=== PATIENT | female | born 1950 | race Caucasian/White ===

== ENCOUNTER 2016-09-05 10:18 | Day surgery (SDC) | payer BC ==
--- NOTE | 2016-08-15 09:36 | HP ---
HISTORY AND PHYSICAL: DATE OF ADMISSION: She is coming into [facility] [place] [facility] on 09/04/16 for left knee a rthroscopic surgery. CHIEF COMPLAINT: Left knee anteromedial pain and catching. HISTORY OF PRESENT ILLNESS: She has had problems in this region for the last couple of months and h as been disabling. She has had knee swelling, extreme knee pain when she catches her left toes and an MRI scan has been done. Because of the distress, we have recommended a knee arthroscopic surgery . Today, she noted that the knee was symptomatic enough and she wished that her left leg was not th ere from her mid thigh downwards. PAST MEDICAL HISTORY: No history of heart attack. She has had a history of chest pain; it was work ed up. She had a normal stress test in about 2013 and she has not had chest pain since. PAST SURGICAL HISTORY: Appendectomy, cholecystectomy, removal of ovarian cyst. She had rectal repai r at [facility] with a long anesthetic just in the last couple of years and she had surgical care for her thyroid at [facility], [place] in July 2009 where she had some difficulty coming out o f the anesthetic and she recalls that they called for the tracheotomy cart, but did not have to do a tracheotomy. She wanted to know if she has some surgical care. On August 31, she wanted the anesth esiologist to be aware of this awakening from anesthesia of July 2009. In the past she had thyroid c ancer, currently no evidence of disease. ALLERGIES: MACRODANTIN and she knows that she wants to avoid morphine. SOCIAL HISTORY: No smoking. She is a social drinker. PHYSICAL EXAMINATION GENERAL: Well-nourished, well-developed, not acutely distressed. VITAL SIGNS: Temperature is 97.4, blood pressure 144/90, pulse is 77, height 5 feet 4 inches, weigh t 186. HEENT: Head: NC/AT. Cranial nerves are grossly intact. LUNGS: Clear bilaterally. HEART: Regular S1, S2 normal. No murmurs or gallops. ABDOMEN: Round, soft, and nontender. EXTREMITIES: The left knee shows a limp and effusion. She is very tender medially and medial carmen la, nontender anteriorly, laterally, and posterolaterally. Some tenderness posteromedially. No mas ses appreciated posterior. The foot pulse in intact and thigh and calf were soft. IMPRESSION: Left knee medial meniscal tear. RECOMMENDATIONS: We have recommended left knee arthroscopic surgery. We have reviewed the goals, r isk and complications of the surgical care today and her questions were answered. [id number]/[facility] #: [id number]
[~2016-09-05 10:18] MED LIST: Famotidine IV* 10 MG/ML 2 ML (20 mg) IV ONE; Ondansetron INJ* 2 MG/ML VIAL IV ONE
[2016-09-05] MEDS ORDERED: Buffered Lidocaine 0.9% SYRIN* 5 ML/SYR SYRINGE ONE (10:35)
[2016-09-05] MEDS ORDERED: Ondansetron INJ* 2 MG/ML VIAL ONE ×2 (10:35→13:17)
[2016-09-05] MEDS ORDERED: Famotidine IV* 10 MG/ML 2 ML (20 mg) ONE (10:35)
[2016-09-05] MEDS ORDERED: ceFAZolin 2 GM PREMIX(*) 2 GM/50 ML BAG IVPB ONE (10:35)
[2016-09-05] MEDS ORDERED: Lidocaine 1% MPF wEPI 200,000* 30 ML SDV ONE (12:52)
[2016-09-05] MEDS ORDERED: Bupivacaine 0.5% W/EPI SDV* 30 ML VIAL ONE ×2 (12:52→13:15)
[2016-09-05] MEDS ORDERED: Propofol* 10 MG/ML 20 ML BTL IV PUSH ONE (13:17)
[2016-09-05] MEDS ORDERED: Ketorolac INJ* 30 MG/ML 1 ML VIAL ONE (13:17)
[2016-09-05] MEDS ORDERED: KETAMINE HCL* 50 MG/ML 10 ML VIAL ONE (13:17)
[2016-09-05] MEDS ORDERED: Midazolam* 1 MG/ML 5 ML VIAL (5 MG) ONE (13:17)
[2016-09-05] MEDS ORDERED: fentaNYL* 50 MCG/ML 2 ML VIAL (100 MCG VIAL) ONE ×3 (13:17→15:09)
[2016-09-05] MEDS ORDERED: Lidocaine 2% PF * 5 ML VIAL ONE (13:17)
[2016-09-05] MEDS ORDERED: Dexamethasone IV* 4 MG/ML 1 ML (4 MG) ONE (13:17)
[2016-09-05] MEDS ORDERED: fentaNYL* 50 MCG/ML 2 ML VIAL (100 MCG VIAL) IV PRN (15:06)
[2016-09-05] MEDS ORDERED: Ondansetron INJ* 2 MG/ML VIAL IV PRN (15:06)
[2016-09-05] MEDS ORDERED: oxyCODONE/Acetamin 5/325 MG* TAB PO PRN (15:06)
[2016-09-05] MEDS ORDERED: oxyCODONE/Acetamin 5/325 MG* TAB ONE (15:41)
[2016-09-05 16:42] VITALS: BP 131/79
--- NOTE | 2016-09-06 04:08 | OP ---
CC: Dr. Leslie Khalil, [facility] office * DATE OF OPERATION: 09/05/16 - [facility] DATE OF : 50 SURGICAL CARE: Left knee arthroscopy surgery. SURGEON: Dylon Nunes MD ASSISTANTS: MIKI Goddard, director of first impressions; and Carmen, the physician's print shop assistant student. ANESTHESIOLOGIST: Dr. Juvenal Araujo. ANESTHESIA: General, LMA. PRE-OP DIAGNOSIS: Left knee medial meniscal tear. POST-OP DIAGNOSES: Left knee medial meniscal tear and lateral meniscal tear. OPERATIVE PROCEDURE: Left knee partial medial and lateral meniscectomy. OPERATIVE INDICATION: Left knee anteromedial and medial pain, popping, catching , and intermittent marked distress with twisting and pivoting. MRI scan showing medial meniscal tear and somewhere at the medial patella. COMPLICATIONS: There were no complications. DRAINS: There were no drains. TOURNIQUET: Tourniquet control was utilized on the left leg. CONDITION: Condition was stable to the recovery room. DESCRIPTION OF PROCEDURE: The patient was brought to the operating room and placed on the operating room table in a supine position. Following the administration of general anesthetic, the left proximal thigh was wrapped with a tourniquet. The left leg was prepped from the tourniquet to the foot and then draped free and carefully sealed off in the usual fashion for arthroscopic surgery of the knee. The leg, ankle, and foot portion were sealed off with an impermeable drape with a Vi-Drape wrapped around the calf at the top of that. After prepping, draping, and sealing off, we did our [place] Protocol time- out confirming Krupa Pendleton and a plan for left knee arthroscopic surgery. We all agreed and we proceeded. The leg was exsanguinated, the tourniquet elevated to 275, the knee was set up for arthroscopy with the arthroscope lateral to the patellar tendon, probe and operating instruments medial to the patellar tendon, and an inflow catheter superomedial to the patella. The survey of the joint showed that the patellofemoral joint was in satisfactory condition. There was a little synovitis medial to the patella. The medial and lateral gutters were clear. The ACL was satisfactory, PCL was satisfactory. The lateral femoral condyle, lateral meniscus, lateral tibial plateau had some yellowing of the cartilage and there was some tearing of the inner portions of the lateral meniscus and the lateral meniscus was shaved smooth. The ligamentum mucosum was excised. The medial femoral condyle was in good condition. The medial tibial plateau had wear and cartilage loss underneath the posterior horn of the medial meniscus , which was torn out with flaps in displaceable portions. The medial meniscus also had a displaced flap in the posterior notch right along the PCL. Once the pathology was evident, then I proceeded with shaving the inner and lateral meniscus. The medial meniscus was shaved mid and posteriorly and basket was utilized on the posterior medial meniscus torn part where there were flaps. The shaver was sent through the intercondylar notch from the lateral portal as well and then the anterior transition of resected versus nonresected medial meniscus was smoothed from the anterolateral portal. Care was taken not to injure the adjacent condyle during the surgical care, and as stated, the medial tibial plateau had some thinning and loss of cartilage posteriorly underneath the medial meniscus. Once the surgical care was complete, the tourniquet was deflated. The knee was irrigated with another 5 L of saline irrigation solution , then emptied, then instilled with Marcaine 0.5% with epinephrine 28 to 30 mL and the skin portals were closed with interrupted 3-0 Surgipro and the dressing applied after washing and drying with Betadine-soaked release, sterile gauze, sterile Webril, cryotherapy cuff, ABD pads, and a 6-inch Omar bandage loosely applied. The patient was returned to the recovery room in stable and satisfactory condition having tolerated the procedure very well. [id number]/[facility] #: [id number] LIZZY
== END 2016-09-05 16:40 | disposition home or self-care (01) ==
LOC: OR 10:18
PROVIDERS: ATTEND Orthopaedic Surgery
DX: M23.332 Other meniscus derangements, other medial meniscus, left knee (principal); M23.362 Other meniscus derangements, other lateral meniscus, left knee; Z88.1 Allergy status to other antibiotic agents
CPT/HCPCS: A9270-GY; J0690; J1100; J1885; J2001; J2250; J2405; J2704; J3010

== ENCOUNTER 2017-10-18 11:25 | Observation (INO) | payer BC, MEDICARE ==
[2017-10-18 13:00] LABS: ABS Basophils 0 10^3/ul (0-0.2); ABS Eosinophils 0.1 10^3/ul (0-0.6); ABS Lymphocytes 1.4 10^3/ul (1.0-4.8); ABS Monocytes 0.3 10^3/ul (0-0.8); ABS Neutrophils 2.8 10^3/ul (1.5-7.7); ABS Nucleated RBC 0 10^3/ul; Eosinophil % 1.3 % (0-6); Hematocrit 36 % (35-47); Hemoglobin 12.8 g/dl (12.0-16.0); Lymphocyte % 30.2 % (25-47); Mean Corpuscular HGB Conc 35 g/dl (31-36); Mean Corpuscular Hemoglobin 30 pg (27-31); Mean Corpuscular Volume 85 fL (80-97); Mean Platelet Volume 8.4 um3 (7.4-10.4); Nucleated Red Blood Cells % 0; Platelet Count 203 10^3/ul (150-450); Red Blood Count 4.25 10^6/ul (4.00-5.40); Red Cell Distribution Width 14 % (10.5-15); White Blood Count 4.7 10^3/ul (3.5-10.8)
[2017-10-18 13:24] LABS: EGFR Non-African American 73.7 (>60)
--- NOTE | 2017-10-18 13:35 | RAD ---
HISTORY: cp, chest pain, shortness of breath, bradycardia COMPARISONS: December 28, 2009 VIEWS: 1: frontal portable view of the chest at 1:20 PM FINDINGS: LINES AND TUBES: None. CARDIOMEDIASTINAL SILHOUETTE: The cardiomediastinal silhouette is normal for portable technique. PLEURA: The costophrenic angles are sharp. No pleural abnormalities are noted. LUNG PARENCHYMA: The lungs are clear. ABDOMEN: The upper abdomen is clear. There is no subphrenic gas. BONES AND SOFT TISSUES: No bone or soft tissue abnormalities are noted. IMPRESSION: NO ACTIVE CARDIOPULMONARY DISEASE.
[2017-10-18] MEDS ORDERED: Potassium Chlor TAB* 20 MEQ TAB.ER PO ONE (14:31)
[2017-10-18] MEDS ORDERED: Dextrose 50% Syringe 50 ML* 25 GM/50 ML SYRINGE IV PUSH PRN (15:27)
[2017-10-18] MEDS ORDERED: Acetaminophen TAB* 325 MG PO PRN (15:27)
[2017-10-18] MEDS ORDERED: Mometasone 220 MCG MDI INH PRN (15:31)
[2017-10-18] MEDS ORDERED: Bisacodyl EC TAB* 5 MG PO PRN (15:31)
[2017-10-18] MEDS ORDERED: Albuterol 2.5 MG/3 ML NEB.SOL* (0.083%) INH PRN (15:39)
[2017-10-18] MEDS ORDERED: Aspirin 81 mg CHEW TAB* 81 MG TAB.CHEW PO ONE (15:40)
--- NOTE | 2017-10-18 17:00 | ECHO ---
Patient: ZULEIMA WOOD [facility] Rec#: [id number] : 1950 Date: 10/18/2017 Age: 67y Height: 162.56 cm / 64.0 in Weight: 82.1 kg / 180.9 lbs Sex: F BSA: 1.87 Room#: -7 Admit Date#: 10/18/2017 Type: Inpatient Referring: Ty Dukes NP Reading: Jamison Lainez MD First Line Production Supervisor: Jeimy Blanchard RDCS CC: Leslie Khalil MD Transthoracic Echocardiogram Indication: Abnormal EKG BP: 163/70 HR: 68 Rhythm: NSR Findings History: HTN, HLD, DMII. Technical Comments: The study quality is fair. Completed at 1700. Left Ventricle: The left ventricular chamber size is normal. Mild concentric left ventricular hypertrophy is observed. There is normal left ventricular systolic function. The estimated ejection fraction is 55-60%. Normal left ventricular diastolic filling is observed. Left Atrium: The left atrial chamber size is normal. Right Ventricle: Moderator Band present. The right ventricular cavity size is normal. The right ventricular global systolic function is normal. Right Atrium: The right atrial cavity size is normal. Aortic Valve: The aortic valve is trileaflet. There is no evidence of aortic valve thickening. There is no evidence of aortic regurgitation. There is no evidence of aortic stenosis. Mitral Valve: The mitral valve leaflets are mildly thickened. There is trace to mild mitral regurgitation. There is no evidence of mitral stenosis. Tricuspid Valve: The tricuspid valve leaflets are normal. There is trace tricuspid regurgitation. The right ventricular systolic pressure is estimated at 27 mmHg. No pulmonary hypertension is noted. There is no tricuspid stenosis. Pulmonic Valve: The pulmonic valve appears normal. There is a trace pulmonic regurgitation. There is no pulmonic stenosis. Pericardium: There is no significant pericardial effusion. Aorta: There is mild dilatation of the ascending aorta. There is no dilatation of the aortic arch. The aortic root is normal in size. Pulmonary Artery: The main pulmonary artery appears normal. Venous: The inferior vena cava is dilated. There is a greater than 50% respiratory change in the inferior vena cava dimension. Conclusions Mild concentric left ventricular hypertrophy is observed. There is normal left ventricular systolic function. The estimated ejection fraction is 55-60%. There is trace to mild mitral regurgitation. There is trace tricuspid regurgitation. No pulmonary hypertension is noted. There is a trace pulmonic regurgitation. There is mild dilatation of the ascending aorta. No reports of prior studies are offerted for assessment. Measurements Name Value Normal Range RVIDd (AP) 2D 3.5 cm (0.9 - 2.6) RVDdMajor (2D) 3.9 cm (2.2 - 4.4) RAd ISD 4CH 5.4 cm (3.4 - 4.9) RA (A4C)W 4.5 cm (2.9 - 4.6) IVSd (2D) 1.1 cm (0.6 - 1) LVPWd (2D) 1.1 cm (0.6 - 1) LVIDd (2D) 4.1 cm (3.6 - 5.4) LVIDs (2D) 2.7 cm - LV FS (2D) 33 % (25 - 45) Aortic Annulus 1.8 cm (1.4 - 2.6) Ao root diameter (2D) 3.1 cm (2.1 - 3.5) Ascending Ao 3.5 cm (2.1 - 3.4) Aortic arch 2.3 cm (1.8 - 3.4) LA dimension (AP) 2D 3.6 cm (2.3 - 3.8) LAd ISD 4CH 4.7 cm (2.9 - 5.3) LA ISD 4CH W 4.2 cm (2.5 - 4.5) Name Value Normal Range LA ESV SP 4CH (A/L) 51 ml - LA ESV SP 2CH (A/L) 50 ml - LA ESV BP (A/L) 54 ml - LA ESV BP (A/L) index 29 ml/m2 - LA ESV SP 4CH (MOD) 44 ml - LA ESV SP 2CH (MOD) 47 ml - Name Value Normal Range MV E-wave Vmax 0.78 m/sec - MV deceleration time 198.1 msec - MV A-wave Vmax 0.96 m/sec - MV E:A ratio 0.8 ratio - LV septal e' Vmax 0.08 m/sec - LV lateral e' Vmax 0.09 m/sec - LV E:e' septal ratio 9.75 ratio - LV E:e' lateral ratio 8.67 ratio - Name Value Normal Range AV Vmax 1.4 m/sec - AV VTI 30.87 cm - AV peak gradient 8.39 mmHg - AV mean gradient 4.5 mmHg - LVOT Vmax 1.17 m/sec - LVOT VTI 29.33 cm - LVOT peak gradient 5.54 mmHg - LVOT mean gradient 3.08 mmHg - SANGEETHA Vmax 0.97 m/sec - Name Value Normal Range TR Vmax 2.2 m/sec - TR peak gradient 19 mmHg - RAP 8 mmHg - RVSP 27 mmHg - IVC diameter 2.2 cm - Name Value Normal Range PV Vmax 0.93 m/sec - PV peak gradient 3.53 mmHg -
[2017-10-18] MEDS: Insulin LISPRO* 1 UNITS UNIT SUBCUT SCH (17:30)
--- NOTE | 2017-10-18 18:26 | ED ---
HPI Cardiac - HPI Summary HPI Summary: This is ramone Mar documenting for attending Dr. Gennaro M.D. Pt is a 67 y/o F BIBA w/ c/o irregular heart beat, chest pressure, SOB. She notes Hx of Sx for past few years, but they have worsened in the past few weeks and worsened again yesterday. Chest pressure is currently rated 2/10 in room, when at its worst 4-5/10. She states she is having palpitations in the room and denies feelings of light-headedness or near LOC. In ambulance, she was given 2 nitro which provided some relief, and at 9:45 she took 325 mg aspirin which also provided relief recently. She notes thyroid levels were high recently and she reports seeing her kier tender yesterday. No Hx of clots in legs or lungs. - History of Current Complaint Chief Complaint: EDDysrhythmPalp Stated Complaint: CHEST PAIN Time Seen by Provider: 10/18/17 11:49 Hx Obtained From: Patient Onset/Duration: Started Days Ago - one day ago present Sx onset Timing: Constant Current Severity: Mild Pain Intensity: 2 Pain Scale Used: 0-10 Numeric - 2/10 Character: Pressure/Squeezing Aggravating Factor(s): Nothing Alleviating Factor(s): NTG 123, OTC Meds - aspirin Associated Signs and Symptoms: Positive: Chest Pain - pressure, Shortness of Breath, Other: - NEGATIVE: light-headedness, feelings of near LOC POSITIVE: palpitations - Allergy/Home Medications Allergies/Adverse Reactions: Allergies Allergy/AdvReac Type Severity Reaction Status Date / Time nitrofurantoin Allergy Rash Verified 10/18/17 16:14 amoxicillin [From Augmentin] AdvReac GI Upset Verified 10/18/17 16:14 clavulanic acid AdvReac GI Upset Verified 10/18/17 16:14 [From Augmentin] Home Medications: Home Medications Aspirin EC TAB* [Ecotrin EC Low Dose 81 MG*] 81 mg PO DAILY 10/18/17 [History Confirmed 10/18/17] Hydrochlorothiazide TAB* [Hydrodiuril TAB*] 12.5 mg PO DAILY 10/18/17 [History Confirmed 10/18/17] Magnesium Chloride EC TAB* [Slow Mag EC TAB*] 64 mg PO DAILY 10/18/17 [History Confirmed 10/18/17] metFORMIN* [Glucophage 500 MG TAB *] 500 mg PO BID 10/18/17 [History Confirmed 10/18/17] PMH/Surg Hx/FS Hx/Imm Hx Endocrine/Hematology History: Reports: Hx Thyroid Disease - thyroid cancer 2009 Denies: Hx Diabetes Cardiovascular History: Reports: Hx Hypercholesterolemia, Hx Hypertension - on meds, Other Cardiovascular Problems/Disorders - high cholesterol Denies: Hx Pacemaker/ICD Respiratory History: Denies: Other Respiratory Problems/Disorders GI History: Denies: Other GI Disorders History: Denies: Hx Dialysis, Hx Renal Disease Musculoskeletal History: Denies: Other Musculoskeletal History Sensory History: Reports: Hx Contacts or Glasses Denies: Hx Hearing Aid Opthamlomology History: Reports: Hx Contacts or Glasses Neurological History: Denies: Other Neuro Impairments/Disorders Psychiatric History: Denies: Hx Panic Disorder - Cancer History Cancer Type, Location and Year: thyroid CA - Surgical History Surgery Procedure, Year, and Place: cholecystectomy;, 1973. hysterectomy;1977. sinus surgery X2;. fx thumb;40 yrs ago. thyroidectomy, 2009 Hx Anesthesia Reactions: Yes - 2009, went to [facility] from anesthesia Infectious Disease History: No Infectious Disease History: Denies: Traveled Outside the [place] in Last 30 Days - Family History Known Family History: Positive: Cardiac Disease - all family members before 50 - Social History Alcohol Use: None Alcohol Amount: 1 per week Substance Use Type: Reports: None Smoking Status (MU): Never Smoked Tobacco Review of Systems Positive: Palpitations, Chest Pain Positive: Shortness Of Breath Neurological: Other - NEGATIVE: light-headedness Negative: Syncope - no near feelings of LOC All Other Systems Reviewed And Are Negative: Yes Physical Exam - Summary Physical Exam Summary: GENERAL: Patient is a well developed and nourished F who is lying comfortable in the stretcher. Patient is not in any acute respiratory distress. HEAD AND FACE: Normocephalic EYES: PERRLA, EOMI x 2. EARS: Hearing grossly intact. MOUTH: Oropharynx within normal limits. NECK: Supple, trachea is midline, no adenopathy, no JVD, no carotid bruit. CHEST: Symmetric, no tenderness at palpation LUNGS: Clear to auscultation bilaterally. No wheezing or crackles. CVS: Regular rate and rhythm, S1 and S2 present, no murmurs or gallops appreciated. No palpitations noted. ABDOMEN: Soft, non-tender. Bowel sounds are normal. No abdominal abnormal pulsations. EXTREMITIES: Full ROM in all major joints, no edema, no cyanosis or clubbing. NEURO: Alert and oriented x 3. No acute neurological deficits. Speech is normal and follows commands. SKIN: Dry and warm Triage Information Reviewed: Yes Vital Signs On Initial Exam: Initial Vitals Temp Pulse Resp BP Pulse Ox 98.4 F 83 17 163/70 97 10/18/17 11:28 10/18/17 11:28 10/18/17 11:28 10/18/17 11:28 10/18/17 11:28 Vital Signs Reviewed: Yes Diagnostics - Vital Signs Vital Signs Temp Pulse Resp BP Pulse Ox 10/18/17 17:54 98.2 F 79 16 135/71 98 10/18/17 17:40 97.2 F 44 18 165/54 99 10/18/17 11:28 98.4 F 83 17 163/70 97 - Laboratory Lab Results: Lab Results 10/18/17 10/18/17 10/18/17 Range/Units 12:49 12:49 12:49 WBC 4.7 (3.5-10.8) 10^3/ul RBC 4.25 (4.00-5.40) 10^6/ul Hgb 12.8 (12.0-16.0) g/dl Hct 36 (35-47) % MCV 85 (80-97) fL MCH 30 (27-31) pg MCHC 35 (31-36) g/dl RDW 14 (10.5-15) % Plt Count 203 (150-450) 10^3/ul MPV 8.4 (7.4-10.4) um3 Neut % (Auto) 60.9 (38-83) % Lymph % (Auto) 30.2 (25-47) % [place] % (Auto) 7.0 (0-7) % Eos % (Auto) 1.3 (0-6) % Baso % (Auto) 0.6 (0-2) % Absolute Neuts (auto) 2.8 (1.5-7.7) 10^3/ul Absolute Lymphs (auto) 1.4 (1.0-4.8) 10^3/ul Absolute Monos (auto) 0.3 (0-0.8) 10^3/ul Absolute Eos (auto) 0.1 (0-0.6) 10^3/ul Absolute Basos (auto) 0 (0-0.2) 10^3/ul Absolute Nucleated RBC 0 10^3/ul Nucleated RBC % 0 APTT 32.4 (26.0-36.3) seconds Sodium 143 (135-145) mmol/L Potassium 3.2 L (3.5-5.0) mmol/L Chloride 108 (101-111) mmol/L Carbon Dioxide 28 (22-32) mmol/L Anion Gap 7 (2-11) mmol/L BUN 14 (6-24) mg/dL Creatinine 0.78 (0.51-0.95) mg/dL Est GFR ( Amer) 89.1 (>60) Est GFR (Non-Af Amer) 73.7 (>60) BUN/Creatinine Ratio 17.9 (8-20) Glucose 132 H (70-100) mg/dL POC Glucose (mg/dL) (70-100) mg/dL Lactic Acid (0.5-2.0) mmol/L Calcium 9.0 (8.6-10.3) mg/dL Magnesium 2.1 (1.9-2.7) mg/dL Total Bilirubin 0.40 (0.2-1.0) mg/dL AST 18 (13-39) U/L ALT 19 (7-52) U/L Alkaline Phosphatase 80 (34-104) U/L CK-MB (CK-2) 1.7 (0.6-6.3) ng/mL Troponin I 0.00 (<0.04) ng/mL B-Natriuretic Peptide ( - 100) pg/mL Total Protein 6.5 (6.4-8.9) g/dL Albumin 4.1 (3.2-5.2) g/dL Globulin 2.4 (2-4) g/dL Albumin/Globulin Ratio 1.7 (1-3) TSH 0.31 L (0.34-5.60) mcIU/mL Thyroxine (T4) 9.21 (6.09-12.23) mcg/mL 10/18/17 10/18/17 10/18/17 Range/Units 12:49 12:49 15:59 WBC (3.5-10.8) 10^3/ul RBC (4.00-5.40) 10^6/ul Hgb (12.0-16.0) g/dl Hct (35-47) % MCV (80-97) fL MCH (27-31) pg MCHC (31-36) g/dl RDW (10.5-15) % Plt Count (150-450) 10^3/ul MPV (7.4-10.4) um3 Neut % (Auto) (38-83) % Lymph % (Auto) (25-47) % Houghton % (Auto) (0-7) % Eos % (Auto) (0-6) % Baso % (Auto) (0-2) % Absolute Neuts (auto) (1.5-7.7) 10^3/ul Absolute Lymphs (auto) (1.0-4.8) 10^3/ul Absolute Monos (auto) (0-0.8) 10^3/ul Absolute Eos (auto) (0-0.6) 10^3/ul Absolute Basos (auto) (0-0.2) 10^3/ul Absolute Nucleated RBC 10^3/ul Nucleated RBC % APTT (26.0-36.3) seconds Sodium (135-145) mmol/L Potassium (3.5-5.0) mmol/L Chloride (101-111) mmol/L Carbon Dioxide (22-32) mmol/L Anion Gap (2-11) mmol/L BUN (6-24) mg/dL Creatinine (0.51-0.95) mg/dL Est GFR ( Amer) (>60) Est GFR (Non-Af Amer) (>60) BUN/Creatinine Ratio (8-20) Glucose (70-100) mg/dL POC Glucose (mg/dL) (70-100) mg/dL Lactic Acid 1.7 (0.5-2.0) mmol/L Calcium (8.6-10.3) mg/dL Magnesium (1.9-2.7) mg/dL Total Bilirubin (0.2-1.0) mg/dL AST (13-39) U/L ALT (7-52) U/L Alkaline Phosphatase (34-104) U/L CK-MB (CK-2) (0.6-6.3) ng/mL Troponin I 0.00 (<0.04) ng/mL B-Natriuretic Peptide 37 ( - 100) pg/mL Total Protein (6.4-8.9) g/dL Albumin (3.2-5.2) g/dL Globulin (2-4) g/dL Albumin/Globulin Ratio (1-3) TSH (0.34-5.60) mcIU/mL Thyroxine (T4) (6.09-12.23) mcg/mL 10/18/17 10/18/17 Range/Units 17:17 17:17 WBC (3.5-10.8) 10^3/ul RBC (4.00-5.40) 10^6/ul Hgb (12.0-16.0) g/dl Hct (35-47) % MCV (80-97) fL MCH (27-31) pg MCHC (31-36) g/dl RDW (10.5-15) % Plt Count (150-450) 10^3/ul MPV (7.4-10.4) um3 Neut % (Auto) (38-83) % Lymph % (Auto) (25-47) % Houghton % (Auto) (0-7) % Eos % (Auto) (0-6) % Baso % (Auto) (0-2) % Absolute Neuts (auto) (1.5-7.7) 10^3/ul Absolute Lymphs (auto) (1.0-4.8) 10^3/ul Absolute Monos (auto) (0-0.8) 10^3/ul Absolute Eos (auto) (0-0.6) 10^3/ul Absolute Basos (auto) (0-0.2) 10^3/ul Absolute Nucleated RBC 10^3/ul Nucleated RBC % APTT (26.0-36.3) seconds Sodium (135-145) mmol/L Potassium (3.5-5.0) mmol/L Chloride (101-111) mmol/L Carbon Dioxide (22-32) mmol/L Anion Gap (2-11) mmol/L BUN (6-24) mg/dL Creatinine (0.51-0.95) mg/dL Est GFR ( Amer) (>60) Est GFR (Non-Af Amer) (>60) BUN/Creatinine Ratio (8-20) Glucose (70-100) mg/dL POC Glucose (mg/dL) 97 (70-100) mg/dL Lactic Acid (0.5-2.0) mmol/L Calcium (8.6-10.3) mg/dL Magnesium (1.9-2.7) mg/dL Total Bilirubin (0.2-1.0) mg/dL AST (13-39) U/L ALT (7-52) U/L Alkaline Phosphatase (34-104) U/L CK-MB (CK-2) (0.6-6.3) ng/mL Troponin I 0.00 (<0.04) ng/mL B-Natriuretic Peptide ( - 100) pg/mL Total Protein (6.4-8.9) g/dL Albumin (3.2-5.2) g/dL Globulin (2-4) g/dL Albumin/Globulin Ratio (1-3) TSH (0.34-5.60) mcIU/mL Thyroxine (T4) (6.09-12.23) mcg/mL Result Diagrams: 10/19/17 06:17 10/19/17 06:17 Lab Statement: Any lab studies that have been ordered have been reviewed, and results considered in the medical decision making process. - Radiology CXR Xray Interpretation: No Acute Changes Radiology Interpretation Completed By: Radiologist - No active cardiopulmonary disease. - EKG 1250 Cardiac Rate: NL - Rate of 99 BPM EKG Rhythm: Sinus Rhythm EKG Interpretation: Ventricular bigeminy, no specific T wave changes Re-Evaluation - Re-Evaluation First Eval Re-Evaluation Time: 14:56 Comment: Results and tests discussed with Pt, informed they will be admitted to the hospital. Disposition - Course Assessment/Plan: Pt is a 67 y/o F BIBA w/ c/o irregular heart beat, chest pressure, SOB. She notes Hx of Sx for past few years, but they have worsened in the past few weeks and worsened again yesterday. Chest pressure is currently rated 2/10 in room, when at its worst 4-5/10. She states she is having palpitations in the room and denies feelings of light-headedness or near LOC. In ambulance, she was given 2 nitro which provided some relief, and at 9:45 she took 325 mg aspirin which also provided relief recently. Physicial exam noted nothing abnormal, no palpitations. CXR was normal and EKG findings are noted above. Dr. Kamara was consulted and she accepts Pt for admission to hospital. Pt was diagnosed with chest pain. - Diagnoses Provider Diagnoses: Chest pain - Physician Notifications Discussed Care Of Patient With: Charlee Kamara Time Discussed With Above Provider: 14:53 Instructed by Provider To: Other - Pt discussed with Dr. Kamara, she agrees to accept Pt for admission Discharge - Sign-Out/Discharge Documenting (check all that apply): Patient Departure - admit - Discharge Plan Condition: Good Disposition: ADMITTED TO [facility] - Billing Disposition and Condition Condition: GOOD Disposition: Admitted to [facility]
--- NOTE | 2017-10-18 20:10 | HP ---
CC: Dr. Khalil; Dr. Poole * HISTORY AND PHYSICAL: DATE OF ADMISSION: 10/18/17 PRIMARY CARE PROVIDER: Dr. Khalil. ATTENDING PHYSICIAN WHILE IN THE HOSPITAL: Dr. Charlee Kamara * (report dictated by Ty Dukes NP) CHIEF COMPLAINT: 1. Palpitations. 2. Chest discomfort. HISTORY OF PRESENT ILLNESS: Ms. Pendleton is a 67-year-old female patient. She has a known history of palpitations. She actually follows with Dr. Poole. She says that she has had Holter monitor just done yesterday and it was noted that, she says that, she was in bigeminy and trigeminy at times. She says about 3 to 4 weeks ago, her TSH was 0.05 and her Synthroid was lowered. She has a history of hypertension, palpitations, hyperlipidemia, she is prediabetic , history of thyroid cancer, and asthma. She says that today, she was concerned because the duration of the palpitations was much longer. She denies any recent caffeine intake. She denied having any alcohol intake. She says that she has been taking her medications as prescribed. She has not had any vomiting or diarrhea. She says she was concerned because the palpitations were lasting longer, she was instructed by her PCP to seek medical care should this happen and should she have any other symptoms. She was stating that she started to develop chest discomfort, she started to develop feeling short of breath, and she became sweaty, so she called 911 as she was instructed to do and presented today. She says she is not having any symptoms now. She says she is feeling better. She said the discomfort in her chest does not happen with exertion. She said she typically walks 10,000 steps a day and she does not get chest discomfort, but she noted that the palpitations, the frequency and duration of these were increasing. She was concerned, came in to the ED. Given her overall history and risk factors for coronary artery disease, we were asked to evaluate for admission. PAST MEDICAL HISTORY: Significant for: 1. Hypertension. 2. Hyperlipidemia. 3. Thyroid cancer. 4. Prediabetes. 5. Hypothyroidism. 6. Asthma. PAST SURGICAL HISTORY: She has had: 1. Thyroidectomy. 2. Cholecystectomy. 3. Hysterectomy. 4. Rectocele repair. 5. Sinus surgery. MEDICATIONS: Home medications include: 1. Aspirin 81 mg daily. 2. Asmanex 220 mcg p.o. b.i.d. as needed. 3. Magnesium 64 mg p.o. daily. 4. Dulcolax tablets 20 mg p.o. daily as needed. 5. Metformin 500 mg p.o. b.i.d. 6. Synthroid 125 mcg daily. 7. Hydrochlorothiazide 12.5 mg p.o. daily. 8. Amlodipine 10 mg daily. 9. Lipitor 20 mg p.o. daily. ALLERGIES TO MEDICATIONS: Include AUGMENTIN and NITROFURANTOIN. FAMILY HISTORY: Her mother of subarachnoid hemorrhage at age of 49. Father's history is unknown. SOCIAL HISTORY: She does not smoke. She rarely drinks alcohol. Surrogate decision maker is her . REVIEW OF SYSTEMS: There is no documented fever. She denies having any significant weight change. There is no double vision. She denies having any ear discharge. There is no rhinorrhea. No sore throat. No thyroid enlargement. She did admit to having chest pressure from HPI; it is now resolved. She denies having any shortness of breath. There is no abdominal pain. There is no nausea, no vomiting. No dysuria, no frequency. No seizure, there was no loss of consciousness. No pruritus and no skin ulcerations. Review of 14 systems completed, all others negative. PHYSICAL EXAMINATION GENERAL: At this time, Ms. Pendleton is a 67-year-old female patient. She is sitting in the ED stretcher. She does not appear to be in any acute distress. She is well nourished and well developed. VITAL SIGNS: Blood pressure 163/70 with a pulse of 83, respirations 18, O2 sat 97%, temperature 98.4. HEENT: Head: Atraumatic, normocephalic. Eyes: EOMs are intact. Sclerae anicteric, not pale. Throat: Oral mucosa appears to be moist. No oropharyngeal erythema. NECK: Supple. LUNGS: Clear to auscultation bilaterally. No wheezes, rales, or rhonchi. HEART: Sounds S1, S2. Regular rate and rhythm. No murmurs, rubs, or gallops. ABDOMEN: Soft, flat, nontender. Bowel sounds are present. EXTREMITIES: Pulses were 2+ throughout. She had no peripheral edema. She is moving all 4 extremities with 5/5 strength. NEUROLOGICAL: The patient is awake, alert, she is oriented x3. No gross focal deficits. SKIN: Grossly intact. DIAGNOSTIC STUDIES/LAB DATA: WBC 4.7, RBC of 4.25, hemoglobin 12.8, hematocrit 36, platelet count 203. PTT of 32.4. Sodium 140, potassium was 3.2 , chloride 108, bicarb 28, BUN 14, creatinine of 0.78, glucose 132, lactate 1.7 , calcium 9. Total bili 0.4, AST 18, ALT 19, alk phos 80. CK-MB 1.7. Troponin 0. BNP 37. Albumin 4.1. TSH 0.31 up from 0.05. She did have several EKGs in the ED. Initial EKG again showing a sinus rhythm, rate of 99, she is in bigeminy, no ST elevations are noted. Repeat EKG again reveals the same, no ST elevations or T-wave inversions. Compared to the previous EKG, the bigeminy is now new. She did have a chest x-ray obtained today, which showed no active cardiopulmonary disease. Old medical records were reviewed. ASSESSMENT AND PLAN: Ms. Pendleton is a 67-year-old female patient coming in to the ED today with complaints of palpitations and chest discomfort. We were asked to evaluate for admission. She will be admitted under observation status for: 1. Palpitations and chest discomfort. At this point, I am checking her magnesium. I would like to keep her potassium close to 4. This is probably contributing to the palpitations and with premature ventricular contractions and the hyperthyroid too. She recently just had the Synthroid reduced, so I will not reduce it again; however, the primary will follow this. However, I am concerned because she is having associated chest pressure, shortness of breath, and sounds like diaphoresis. She does have risk factors for coronary artery disease. So, I do think she is warranted to get an echo and undergo stress test. I would cc a copy of this report to Dr. Khalil. We will continue the aspirin. She is on statin therapy now. We will cycle the troponins. Place her on telemetry. We will get an EKG in the morning. 2. Hypertension. Continue meds as prescribed with the exception I am holding the hydrochlorothiazide as this may be contributing to the hypokalemia. 3. Hyperlipidemia. Continue statin therapy. Check lipid panel in the morning. 4. Prediabetes. For now, I am holding the metformin. We will put her on lispro sliding scale. We are checking an A1c in the morning. 5. History of thyroid cancer with hypothyroidism. Again, TSH is 0.31, but is up from 0.05 per the patient. Follow with primary for this. 6. Asthma. Continue p.r.n. medications. 7. DVT prophylaxis. Heparin subcu has been ordered. 8. Code status. Full code. 9. Fluids, electrolytes, and nutrition. She can have a heart healthy diet. TIME SPENT: On the admission 60 minutes, greater than half the time was spent face- to-face with the patient obtaining my history and physical; other half time was spent going over the plan of care with the patient and implementing plan of care. I did discuss the plan of care with my attending, Dr. Kamara; she is in agreement. TY DUKES, MILANA [id number]/[facility] #: [id number] LIZZY
[2017-10-18] MEDS ORDERED: diPHENhydraMINE PO* 25 MG PO PRN (20:40)
[2017-10-18] MEDS: Heparin VIAL(*) 5000 UNITS/ML VIAL (FIVE THOUSAND) SUBCUT SCH (21:20)
[2017-10-18] MEDS: Potassium Chlor TAB* 20 MEQ TAB.ER PO SCH (21:21)
[2017-10-19] MEDS: Heparin VIAL(*) 5000 UNITS/ML VIAL (FIVE THOUSAND) SUBCUT SCH ×3 (05:49→21:52)
[2017-10-19] MEDS: Levothyroxine TAB* 125 MCG TAB PO SCH (05:49)
[2017-10-19 06:31] LABS: ABS Basophils 0 10^3/ul (0-0.2); ABS Eosinophils 0.1 10^3/ul (0-0.6); ABS Lymphocytes 2.4 10^3/ul (1.0-4.8); ABS Monocytes 0.3 10^3/ul (0-0.8); ABS Neutrophils 2.2 10^3/ul (1.5-7.7); ABS Nucleated RBC 0 10^3/ul; Eosinophil % 2.1 % (0-6); Hematocrit 40 % (35-47); Hemoglobin 13.8 g/dl (12.0-16.0); Lymphocyte % 48.2 % (25-47); Mean Corpuscular HGB Conc 35 g/dl (31-36); Mean Corpuscular Hemoglobin 30 pg (27-31); Mean Corpuscular Volume 85 fL (80-97); Mean Platelet Volume 8.6 um3 (7.4-10.4); Nucleated Red Blood Cells % 0.1; Platelet Count 228 10^3/ul (150-450); Red Blood Count 4.65 10^6/ul (4.00-5.40); Red Cell Distribution Width 13 % (10.5-15); White Blood Count 5.1 10^3/ul (3.5-10.8)
[2017-10-19 06:43] LABS: EGFR Non-African American 60.1 (>60)
[2017-10-19] MEDS: Insulin LISPRO* 1 UNITS UNIT SUBCUT SCH ×3 (09:37→18:08)
[2017-10-19] MEDS ORDERED: Regadenoson* 0.4 MG/5 ML SYRINGE ONE (09:40)
[2017-10-19] MEDS ORDERED: Aminophylline IV* 25 MG/ML 10 ML VIAL ONE (09:46)
[2017-10-19] MEDS: amLODIPine TAB* 5 MG PO SCH (09:53)
[2017-10-19] MEDS: Potassium Chlor TAB* 20 MEQ TAB.ER PO SCH (09:53)
[2017-10-19] MEDS: Aspirin EC TAB* 81 MG TAB.EC PO SCH (09:53)
[2017-10-19] MEDS: Atorvastatin* 20 MG TAB PO SCH (09:53)
[2017-10-19] MEDS: Magnesium Chloride EC TAB* 64 MG PO SCH (09:53)
--- NOTE | 2017-10-19 11:42 | RAD ---
Edited for charges. INDICATION: Chest pain, shortness of breath, prior catheterization. Multiple risk factors for coronary artery disease. COMPARISON: No relevant prior exams available on the [facility] PACS for comparison. TECHNIQUE: 10.830 mCi of Tc-99m Myoview were administered IV. SPECT images of the heart were obtained. Later on the same day. Under the direction of Dr. Lainez, the patient was given an IV injection of a pharmacologic stress agent. Subsequently, the patient was given an IV injection of 25.7800 mCi Tc-99m Myoview. SPECT images of the heart were obtained and a gated wall motion study was performed. FINDINGS: Gated wall motion images were obtained at stress and demonstrate wall motion to be within normal limits. The calculated left ventricular ejection fraction is 62 % at stress. Estimated LEFT ventricular end diastolic volume is 72 mL. TID 1.05. There is decreased perfusion at the cardiac apex and apical segment of the inferior wall at stress with reversal at rest. No fixed myocardial perfusion defects evident. IMPRESSION: #. Small region of reversible hypoperfusion at the apex and apical segment of the inferior wall concerning for stress-induced ischemia. #. Normal LEFT ventricular wall motion and estimated ejection fraction. ASSESSMENT: Low risk based on nuclear portion. Based on imaging criteria from ACC/AHA 2002 Guideline Update for the Management of Patients With Chronic Stable Angina Table 23. Noninvasive Risk Stratification. MTDD
--- NOTE | 2017-10-19 12:55 | PN ---
Subjective Date of Service: 10/19/17 Interval History: Continues to c/o palpitations, Denies chest pain or shortness of breath. Denies abd pain n/v/d. Denies cough or congestion. Family History: Unchanged from Admission Social History: Unchanged from Admission Past Medical History: Unchanged from Admission Objective Active Medications: Acetaminophen (Tylenol Tab*) 650 mg PO Q4H PRN PRN Reason: FEVER/PAIN Albuterol (Ventolin 2.5 Mg/3 Ml Neb.Danae*) 2.5 mg INH Q2H PRN PRN Reason: SOB/WHEEZING Amlodipine Besylate (Norvasc Tab*) 10 mg PO DAILY [facility] Last Admin: 10/19/17 09:53 Dose: 10 mg Aspirin (Aspirin Ec Tab*) 81 mg PO DAILY [facility] Last Admin: 10/19/17 09:53 Dose: 81 mg Atorvastatin Calcium (Lipitor*) 20 mg PO DAILY [facility] Last Admin: 10/19/17 09:53 Dose: 20 mg Bisacodyl (Dulcolax Ec Tab*) 20 mg PO DAILY PRN PRN Reason: CONSTIPATION Dextrose (D50w Syringe 50 Ml*) 12.5 gm IV PUSH .FOR FS < 60 - SS PRN PRN Reason: FS < 60 Diphenhydramine HCl (Benadryl Po*) 25 mg PO BEDTIME PRN PRN Reason: SLEEP Last Admin: 10/18/17 21:21 Dose: 25 mg Heparin Sodium (Porcine) (Heparin Vial(*)) 5,000 units SUBCUT Q8HR [facility] Last Admin: 10/19/17 05:49 Dose: 5,000 units Insulin Human Lispro (Humalog*) 0 units SUBCUT [facility]; Protocol Last Admin: 10/19/17 09:37 Dose: Not Given Levothyroxine Sodium (Synthroid Tab*) 125 mcg PO DAILY@0600 [facility] Last Admin: 10/19/17 05:49 Dose: 125 mcg Magnesium Chloride (Slow Mag Ec Tab*) 64 mg PO DAILY [facility] Last Admin: 10/19/17 09:53 Dose: 64 mg Mometasone Furoate (Asmanex 220 Mcg Mdi *) 1 puff INH BID PRN PRN Reason: SHORTNESS OF BREATH Vital Signs - 8 hr 10/19/17 10/19/17 07:49 08:00 Temperature 97.4 F Pulse Rate 65 Respiratory 16 16 Rate Blood Pressure 149/81 (mmHg) O2 Sat by Pulse 99 Oximetry Oxygen Devices in Use Now: None Appearance: appears comfortable resting in the bed. Eyes: No Scleral Icterus Ears/Nose/Mouth/Throat: Clear Oropharnyx, Mucous Membranes Moist Neck: NL Appearance and Movements; NL JVP, Trachea Midline Respiratory: Symmetrical Chest Expansion and Respiratory Effort, Clear to Auscultation Cardiovascular: NL Sounds; No Murmurs; No JVD, No Edema Abdominal: NL Sounds; No Tenderness; No Distention Extremities: No Edema, No Clubbing, Cyanosis Skin: No Rash or Ulcers Neurological: Alert and Oriented x 3 Nutrition: Taking PO's Result Diagrams: 10/19/17 06:17 10/19/17 06:17 Additional Lab and Data: Lab Results 10/18/17 10/18/17 10/18/17 Range/Units 12:49 12:49 12:49 WBC 4.7 (3.5-10.8) 10^3/ul RBC 4.25 (4.00-5.40) 10^6/ul Hgb 12.8 (12.0-16.0) g/dl Hct 36 (35-47) % MCV 85 (80-97) fL MCH 30 (27-31) pg MCHC 35 (31-36) g/dl RDW 14 (10.5-15) % Plt Count 203 (150-450) 10^3/ul MPV 8.4 (7.4-10.4) um3 Neut % (Auto) 60.9 (38-83) % Lymph % (Auto) 30.2 (25-47) % [place] % (Auto) 7.0 (0-7) % Eos % (Auto) 1.3 (0-6) % Baso % (Auto) 0.6 (0-2) % Absolute Neuts (auto) 2.8 (1.5-7.7) 10^3/ul Absolute Lymphs (auto) 1.4 (1.0-4.8) 10^3/ul Absolute Monos (auto) 0.3 (0-0.8) 10^3/ul Absolute Eos (auto) 0.1 (0-0.6) 10^3/ul Absolute Basos (auto) 0 (0-0.2) 10^3/ul Absolute Nucleated RBC 0 10^3/ul Nucleated RBC % 0 APTT 32.4 (26.0-36.3) seconds Sodium 143 (135-145) mmol/L Potassium 3.2 L (3.5-5.0) mmol/L Chloride 108 (101-111) mmol/L Carbon Dioxide 28 (22-32) mmol/L Anion Gap 7 (2-11) mmol/L BUN 14 (6-24) mg/dL Creatinine 0.78 (0.51-0.95) mg/dL Est GFR ( Amer) 89.1 (>60) Est GFR (Non-Af Amer) 73.7 (>60) BUN/Creatinine Ratio 17.9 (8-20) Glucose 132 H (70-100) mg/dL POC Glucose (mg/dL) (70-100) mg/dL Lactic Acid (0.5-2.0) mmol/L Calcium 9.0 (8.6-10.3) mg/dL Magnesium 2.1 (1.9-2.7) mg/dL Total Bilirubin 0.40 (0.2-1.0) mg/dL AST 18 (13-39) U/L ALT 19 (7-52) U/L Alkaline Phosphatase 80 (34-104) U/L CK-MB (CK-2) 1.7 (0.6-6.3) ng/mL Troponin I 0.00 (<0.04) ng/mL B-Natriuretic Peptide ( - 100) pg/mL Total Protein 6.5 (6.4-8.9) g/dL Albumin 4.1 (3.2-5.2) g/dL Globulin 2.4 (2-4) g/dL Albumin/Globulin Ratio 1.7 (1-3) TSH 0.31 L (0.34-5.60) mcIU/mL Thyroxine (T4) 9.21 (6.09-12.23) mcg/mL 10/18/17 10/18/17 10/18/17 Range/Units 12:49 12:49 15:59 WBC (3.5-10.8) 10^3/ul RBC (4.00-5.40) 10^6/ul Hgb (12.0-16.0) g/dl Hct (35-47) % MCV (80-97) fL MCH (27-31) pg MCHC (31-36) g/dl RDW (10.5-15) % Plt Count (150-450) 10^3/ul MPV (7.4-10.4) um3 Neut % (Auto) (38-83) % Lymph % (Auto) (25-47) % [place] % (Auto) (0-7) % Eos % (Auto) (0-6) % Baso % (Auto) (0-2) % Absolute Neuts (auto) (1.5-7.7) 10^3/ul Absolute Lymphs (auto) (1.0-4.8) 10^3/ul Absolute Monos (auto) (0-0.8) 10^3/ul Absolute Eos (auto) (0-0.6) 10^3/ul Absolute Basos (auto) (0-0.2) 10^3/ul Absolute Nucleated RBC 10^3/ul Nucleated RBC % APTT (26.0-36.3) seconds Sodium (135-145) mmol/L Potassium (3.5-5.0) mmol/L Chloride (101-111) mmol/L Carbon Dioxide (22-32) mmol/L Anion Gap (2-11) mmol/L BUN (6-24) mg/dL Creatinine (0.51-0.95) mg/dL Est GFR ( Amer) (>60) Est GFR (Non-Af Amer) (>60) BUN/Creatinine Ratio (8-20) Glucose (70-100) mg/dL POC Glucose (mg/dL) (70-100) mg/dL Lactic Acid 1.7 (0.5-2.0) mmol/L Calcium (8.6-10.3) mg/dL Magnesium (1.9-2.7) mg/dL Total Bilirubin (0.2-1.0) mg/dL AST (13-39) U/L ALT (7-52) U/L Alkaline Phosphatase (34-104) U/L CK-MB (CK-2) (0.6-6.3) ng/mL Troponin I 0.00 (<0.04) ng/mL B-Natriuretic Peptide 37 ( - 100) pg/mL Total Protein (6.4-8.9) g/dL Albumin (3.2-5.2) g/dL Globulin (2-4) g/dL Albumin/Globulin Ratio (1-3) TSH (0.34-5.60) mcIU/mL Thyroxine (T4) (6.09-12.23) mcg/mL 10/18/17 10/18/17 Range/Units 17:17 17:17 WBC (3.5-10.8) 10^3/ul RBC (4.00-5.40) 10^6/ul Hgb (12.0-16.0) g/dl Hct (35-47) % MCV (80-97) fL MCH (27-31) pg MCHC (31-36) g/dl RDW (10.5-15) % Plt Count (150-450) 10^3/ul MPV (7.4-10.4) um3 Neut % (Auto) (38-83) % Lymph % (Auto) (25-47) % [place] % (Auto) (0-7) % Eos % (Auto) (0-6) % Baso % (Auto) (0-2) % Absolute Neuts (auto) (1.5-7.7) 10^3/ul Absolute Lymphs (auto) (1.0-4.8) 10^3/ul Absolute Monos (auto) (0-0.8) 10^3/ul Absolute Eos (auto) (0-0.6) 10^3/ul Absolute Basos (auto) (0-0.2) 10^3/ul Absolute Nucleated RBC 10^3/ul Nucleated RBC % APTT (26.0-36.3) seconds Sodium (135-145) mmol/L Potassium (3.5-5.0) mmol/L Chloride (101-111) mmol/L Carbon Dioxide (22-32) mmol/L Anion Gap (2-11) mmol/L BUN (6-24) mg/dL Creatinine (0.51-0.95) mg/dL Est GFR ( Amer) (>60) Est GFR (Non-Af Amer) (>60) BUN/Creatinine Ratio (8-20) Glucose (70-100) mg/dL POC Glucose (mg/dL) 97 (70-100) mg/dL Lactic Acid (0.5-2.0) mmol/L Calcium (8.6-10.3) mg/dL Magnesium (1.9-2.7) mg/dL Total Bilirubin (0.2-1.0) mg/dL AST (13-39) U/L ALT (7-52) U/L Alkaline Phosphatase (34-104) U/L CK-MB (CK-2) (0.6-6.3) ng/mL Troponin I 0.00 (<0.04) ng/mL B-Natriuretic Peptide ( - 100) pg/mL Total Protein (6.4-8.9) g/dL Albumin (3.2-5.2) g/dL Globulin (2-4) g/dL Albumin/Globulin Ratio (1-3) TSH (0.34-5.60) mcIU/mL Thyroxine (T4) (6.09-12.23) mcg/mL Assess/Plan/Problems-Billing Assessment: Ms. Pendleton is a 67 y.o female with a hx of HLD, hypothyroid and thyroid CA, who presented to the emergency room with palpitation causing chest pressure and shortness of breath. - Patient Problems (1) Chest pain Current Visit: Yes Status: Acute Code(s): R07.9 - CHEST PAIN, UNSPECIFIED SNOMED Code(s): 29856578 Comment: Troponins- negative Nuclear stress test today- Low Risk- with an area of concern small area of hypoprofusion. started on metprolol today, Per cardiology patient is to walk briskly in the halls tomarrow and be monitored by the cable splicing technician. (2) Palpitation Current Visit: Yes Status: Acute Code(s): R00.2 - PALPITATIONS SNOMED Code (s): 14142576 Comment: Patient with Bigeminy on the monitor reports assiociated chest pressure with the palpitation it becomes worse Metoprolol 12.5 mg BID started as per cardiology recommendations (3) Hypertension Current Visit: Yes Status: Acute Code(s): I10 - ESSENTIAL (PRIMARY) HYPERTENSION SNOMED Code(s): 89644093 Comment: stable - continue norvasc (4) Hyperlipidemia Current Visit: Yes Status: Acute Code(s): E78.5 - HYPERLIPIDEMIA, UNSPECIFIED SNOMED Code(s): 25934752 Comment: Contniue home medications (5) Hypothyroid Current Visit: Yes Status: Acute Code(s): E03.9 - HYPOTHYROIDISM, UNSPECIFIED SNOMED Code(s): 04856963 Comment: Continue home medication TSH 0.31 (6) DVT prophylaxis Current Visit: Yes Status: Acute Code(s): NSY8619 - SNOMED Code(s): 789891529 Comment: HSQ (7) Full code status Current Visit: Yes Status: Acute Code(s): Z78.9 - OTHER SPECIFIED HEALTH STATUS SNOMED Code(s): 345380640 Status and Disposition: inpatient - discharge home when medically stable
[2017-10-19] MEDS ORDERED: Metoprolol Tartrate TAB* 25 MG PO ONE (14:18)
--- NOTE | 2017-10-19 15:11 | CONS ---
CARDIOLOGY CONSULTATION CC: Leslie Khalil MD, Jordan Poole MD DATE OF CONSULT: 10/19/2017. INDICATION FOR CONSULT: Asked by Silvia Nicholas NP to see the patient for evaluation of cardiac status with a history of palpitations, chest discomfort, PVC's, and an abnormal nuclear report. HISTORY OF PRESENT ILLNESS: The patient is a pleasant, 67-year-old female who has a 20 year history of palpitations. She is followed by the [facility] from a cardiac standpoint. She has had multiple testing throughout her life within the past ten years for these palpitations and PVC's. She noticed that in general they do come and go, but over the past two weeks they have been lasting longer and more often. Every time she has the palpitation, she has a central chest pressure feeling. There is no radiation to the throat, jaw, arms or to the back. It is not associated with nauseousness or vomiting. There is a question of minimal shortness of breath. Interestingly, over the past two weeks, she is able to walk some 30 minutes at a time and not provoke these symptoms, if anything is less troubled by these symptoms where that she is able to garden and not feel these symptoms specifically coming on. She notices if she gets emotionally worked up, they will come on. Recently, her thyroid function was checked as she is on supplementation therapy because of thyroid cancer that was removed and her TSH was found to be 0.05 and her thyroid medications were decreased. She has not had any lightheaded, syncopal, or near syncopal episodes. For the past one month, she has been placed on Slow-Mag she states for a GI problem. I asked her if her level was low and she did not know, and also she has been placed on Metformin. Cardiac risk factors include a history of hypertension, hyperlipidemia. She has never smoked. Also, she has the recent noted prediabetes and there was a family history of several half brothers who have had early onset coronary artery disease. In reviewing the cardiac testing that was done at [facility] in July of 2014, she underwent stress echo which did not reveal any significant abnormalities with good exercise tolerance. She had some shortness of breath, but she had no EKG changes of ischemia and negative ischemia by echocardiographic imaging. There were frequent PVC's noted in the recovery phase. She had a Holter monitor in July of 2014 which showed frequent PVC's with occasional bigeminy and no ventricular tachycardia. A transthoracic echocardiogram in 2012 showed normal LV size and wall thickness, normal systolic function, EF 55 to 60 percent. She had an exercise SPECT study done at [facility] on 06/11/2012 reportedly showing no evidence of perfusion abnormalities. Interestingly, in querying [facility] I do not see that result. PAST MEDICAL HISTORY: Hypertension, hyperlipidemia, prediabetes mellitus, history of hypothyroidism due to surgical removal from thyroid cancer, as well as sleep apnea and apparently a history of asthma. PAST SURGICAL HISTORY: Thyroidectomy for thyroid cancer, status post cholecystectomy, appendectomy, ovarian cysts, and two sinus surgeries. MEDICATIONS AT HOME: 1. Aspirin 81 mg a day. 2. Asmanex 220 mcg twice a day. 3. Magnesium 64 mg a day. 4. Dulcolax as needed. 5. Metformin 500 mg twice a day. 6. Synthroid 125 mcg a day. 7. Amlodipine 10 mg a day. 8. Atorvastatin 20 mg a day. REVIEW OF SYSTEMS: As per the history and physical by Ty Dukes NP with no additional findings. PHYSICAL EXAM: Vital Signs: Blood pressure 149/81 with a pulse of 65, respirations 16, O2 saturation 99 percent. Neck: Supple. There is no obvious increased JVP. Carotid has good upstroke and volume with no bruits. Conjunctiva are pink. Sclerae are clear. Lungs reveal no accessory muscle usage. There is good excursion. There is no active rales, rhonchi, or wheezes. Heart reveals no visible heaves, no palpable heaves or thrills. Normal S1, S2 with no significant S3 or S4 gallop. No significant systolic or diastolic murmur. Infrequent extra systoles are noted. Abdomen: Obese, soft, nontender without organomegaly. Extremities: Without clubbing, cyanosis, or gerson pitting edema. Peripheral pulses are intact. Femoral pulse noted without bruit. Neuro: The patient is alert, oriented, with normal mentation. Musculoskeletal: Patient moves lower extremities appropriately. Psychology: Patient with normal affect. DIAGNOSTIC STUDIES: Electrocardiogram on admission revealed normal sinus rhythm with a bigeminy rhythm noted. No acute ST-T wave changes on normal beats. Normal axis. Normal WI, QRS, and QT interval. Repeat EKG had showed the same and an EKG done this morning showed sinus rhythm with no PVC's. Lexiscan stress test revealed no significant hemodynamic changes. PVC's were noted with sustained bigeminy at times. No evidence of ischemia. The nuclear images were interpreted by Radiology as having a small region of reversible perfusion at the apical and apical segment of the inferior wall with normal LV function, an EF of 62 percent felt to be a low risk nuclear apportion. LABORATORY DATA: From today reveal a hemoglobin/hematocrit of 13.8 and 40 with a platelet count of 228,000; a potassium of 3.9, BUN and creatinine are 14 and 0.9, her magnesium was 2.1 on admission. Her troponins have been 0, 0, and 0. Her B- natriuretic peptide is 37. OVERALL ASSESSMENT: Krupa now presents with frequent PVC's with bigeminy which interestingly while I was sitting there with her lying in bed, the bigeminy came on and associated with it was her chest pressure at rest. Given these findings and knowing that she is able to walk and not develop the symptoms, I favor trying her on low dose beta gabe with Metoprolol Tartrate 12.5 mg b.i.d., increasing it as blood pressure and pulse tolerate. I have asked her to have her bring in a pair of sneakers for her so we can have her appropriately walk around the halls at a brisk pace and see how she does both on monitors and symptoms. If she tolerates the beta gabe and she has no symptoms up and about, I believe she can be safely discharged home given her low BRIANNA risk score and can follow-up with Dr. Poole within the next week to two weeks. Over the weekend, Dr. Oli Joseph will be watching her as the general upper cutter machine on for the weekend. Thank you very much for having asked us to see the patient. [id number]/[facility] #: [id number] LIZZY
[2017-10-19] MEDS ORDERED: Metoprolol Tartrate TAB* 25 MG PO SCH (21:00)
[2017-10-19] MEDS: Metoprolol Tartrate TAB* 25 MG PO SCH (21:52)
[2017-10-20] MEDS: Levothyroxine TAB* 125 MCG TAB PO SCH (06:15)
[2017-10-20] MEDS: Heparin VIAL(*) 5000 UNITS/ML VIAL (FIVE THOUSAND) SUBCUT SCH ×2 (06:15→14:19)
[2017-10-20] MEDS: Insulin LISPRO* 1 UNITS UNIT SUBCUT SCH ×2 (08:35→14:19)
[2017-10-20] MEDS: amLODIPine TAB* 5 MG PO SCH (08:43)
[2017-10-20] MEDS: Metoprolol Tartrate TAB* 25 MG PO SCH (08:43)
[2017-10-20] MEDS: Aspirin EC TAB* 81 MG TAB.EC PO SCH (08:43)
[2017-10-20] MEDS: Atorvastatin* 20 MG TAB PO SCH (08:43)
[2017-10-20] MEDS: Magnesium Chloride EC TAB* 64 MG PO SCH (08:44)
--- NOTE | 2017-10-20 11:43 | PN ---
Subjective Date of Service: 10/20/17 Interval History: Patient states that she did not have any episodes of chest pain during the night , Patient was walking briskly in the [place] this AM, continues to have bigeminy and trigeminy on the monitor, does not decrease with exercise. Denies chest pain or shortness of breath, Denies abd pain , n/v/d. Family History: Unchanged from Admission Social History: Unchanged from Admission Past Medical History: Unchanged from Admission Objective Active Medications: Acetaminophen (Tylenol Tab*) 650 mg PO Q4H PRN PRN Reason: FEVER/PAIN Albuterol (Ventolin 2.5 Mg/3 Ml Neb.Danae*) 2.5 mg INH Q2H PRN PRN Reason: SOB/WHEEZING Amlodipine Besylate (Norvasc Tab*) 10 mg PO DAILY [facility] Last Admin: 10/20/17 08:43 Dose: 10 mg Aspirin (Aspirin Ec Tab*) 81 mg PO DAILY [facility] Last Admin: 10/20/17 08:43 Dose: 81 mg Atorvastatin Calcium (Lipitor*) 20 mg PO DAILY [facility] Last Admin: 10/20/17 08:43 Dose: 20 mg Bisacodyl (Dulcolax Ec Tab*) 20 mg PO DAILY PRN PRN Reason: CONSTIPATION Last Admin: 10/20/17 08:43 Dose: 20 mg Dextrose (D50w Syringe 50 Ml*) 12.5 gm IV PUSH .FOR FS < 60 - SS PRN PRN Reason: FS < 60 Diphenhydramine HCl (Benadryl Po*) 25 mg PO BEDTIME PRN PRN Reason: SLEEP Last Admin: 10/18/17 21:21 Dose: 25 mg Heparin Sodium (Porcine) (Heparin Vial(*)) 5,000 units SUBCUT Q8HR [facility] Last Admin: 10/20/17 06:15 Dose: 5,000 units Insulin Human Lispro (Humalog*) 0 units SUBCUT AC [facility]; Protocol Last Admin: 10/20/17 08:35 Dose: Not Given Levothyroxine Sodium (Synthroid Tab*) 125 mcg PO DAILY@0600 [facility] Last Admin: 10/20/17 06:15 Dose: 125 mcg Magnesium Chloride (Slow Mag Ec Tab*) 64 mg PO DAILY [facility] Last Admin: 10/20/17 08:44 Dose: 64 mg Metoprolol Tartrate (Lopressor Tab*) 12.5 mg PO Q12HR [facility] Last Admin: 10/20/17 08:43 Dose: 12.5 mg Mometasone Furoate (Asmanex 220 Mcg Mdi *) 1 puff INH BID PRN PRN Reason: SHORTNESS OF BREATH Vital Signs - 8 hr 10/20/17 10/20/17 03:47 07:17 Temperature 98.1 F 98.4 F Pulse Rate 64 66 Respiratory 14 16 Rate Blood Pressure 121/76 112/61 (mmHg) O2 Sat by Pulse 97 96 Oximetry Oxygen Devices in Use Now: None Appearance: Appears comfortable sitting on the edge of the bed. No acute distress. Eyes: No Scleral Icterus Ears/Nose/Mouth/Throat: Clear Oropharnyx, Mucous Membranes Moist Neck: NL Appearance and Movements; NL JVP, Trachea Midline Respiratory: Symmetrical Chest Expansion and Respiratory Effort, Clear to Auscultation Cardiovascular: NL Sounds; No Murmurs; No JVD, No Edema Abdominal: NL Sounds; No Tenderness; No Distention Extremities: No Edema, No Clubbing, Cyanosis Skin: No Rash or Ulcers, No Nodules or Sclerosis Neurological: Alert and Oriented x 3 Nutrition: Taking PO's Result Diagrams: 10/19/17 06:17 10/19/17 06:17 Additional Lab and Data: Lab Results 10/18/17 10/18/17 10/18/17 Range/Units 12:49 12:49 12:49 WBC 4.7 (3.5-10.8) 10^3/ul RBC 4.25 (4.00-5.40) 10^6/ul Hgb 12.8 (12.0-16.0) g/dl Hct 36 (35-47) % MCV 85 (80-97) fL MCH 30 (27-31) pg MCHC 35 (31-36) g/dl RDW 14 (10.5-15) % Plt Count 203 (150-450) 10^3/ul MPV 8.4 (7.4-10.4) um3 Neut % (Auto) 60.9 (38-83) % Lymph % (Auto) 30.2 (25-47) % [place] % (Auto) 7.0 (0-7) % Eos % (Auto) 1.3 (0-6) % Baso % (Auto) 0.6 (0-2) % Absolute Neuts (auto) 2.8 (1.5-7.7) 10^3/ul Absolute Lymphs (auto) 1.4 (1.0-4.8) 10^3/ul Absolute Monos (auto) 0.3 (0-0.8) 10^3/ul Absolute Eos (auto) 0.1 (0-0.6) 10^3/ul Absolute Basos (auto) 0 (0-0.2) 10^3/ul Absolute Nucleated RBC 0 10^3/ul Nucleated RBC % 0 APTT 32.4 (26.0-36.3) seconds Sodium 143 (135-145) mmol/L Potassium 3.2 L (3.5-5.0) mmol/L Chloride 108 (101-111) mmol/L Carbon Dioxide 28 (22-32) mmol/L Anion Gap 7 (2-11) mmol/L BUN 14 (6-24) mg/dL Creatinine 0.78 (0.51-0.95) mg/dL Est GFR ( Amer) 89.1 (>60) Est GFR (Non-Af Amer) 73.7 (>60) BUN/Creatinine Ratio 17.9 (8-20) Glucose 132 H (70-100) mg/dL POC Glucose (mg/dL) (70-100) mg/dL Lactic Acid (0.5-2.0) mmol/L Calcium 9.0 (8.6-10.3) mg/dL Magnesium 2.1 (1.9-2.7) mg/dL Total Bilirubin 0.40 (0.2-1.0) mg/dL AST 18 (13-39) U/L ALT 19 (7-52) U/L Alkaline Phosphatase 80 (34-104) U/L CK-MB (CK-2) 1.7 (0.6-6.3) ng/mL Troponin I 0.00 (<0.04) ng/mL B-Natriuretic Peptide ( - 100) pg/mL Total Protein 6.5 (6.4-8.9) g/dL Albumin 4.1 (3.2-5.2) g/dL Globulin 2.4 (2-4) g/dL Albumin/Globulin Ratio 1.7 (1-3) TSH 0.31 L (0.34-5.60) mcIU/mL Thyroxine (T4) 9.21 (6.09-12.23) mcg/mL 10/18/17 10/18/17 10/18/17 Range/Units 12:49 12:49 15:59 WBC (3.5-10.8) 10^3/ul RBC (4.00-5.40) 10^6/ul Hgb (12.0-16.0) g/dl Hct (35-47) % MCV (80-97) fL MCH (27-31) pg MCHC (31-36) g/dl RDW (10.5-15) % Plt Count (150-450) 10^3/ul MPV (7.4-10.4) um3 Neut % (Auto) (38-83) % Lymph % (Auto) (25-47) % [place] % (Auto) (0-7) % Eos % (Auto) (0-6) % Baso % (Auto) (0-2) % Absolute Neuts (auto) (1.5-7.7) 10^3/ul Absolute Lymphs (auto) (1.0-4.8) 10^3/ul Absolute Monos (auto) (0-0.8) 10^3/ul Absolute Eos (auto) (0-0.6) 10^3/ul Absolute Basos (auto) (0-0.2) 10^3/ul Absolute Nucleated RBC 10^3/ul Nucleated RBC % APTT (26.0-36.3) seconds Sodium (135-145) mmol/L Potassium (3.5-5.0) mmol/L Chloride (101-111) mmol/L Carbon Dioxide (22-32) mmol/L Anion Gap (2-11) mmol/L BUN (6-24) mg/dL Creatinine (0.51-0.95) mg/dL Est GFR ( Amer) (>60) Est GFR (Non-Af Amer) (>60) BUN/Creatinine Ratio (8-20) Glucose (70-100) mg/dL POC Glucose (mg/dL) (70-100) mg/dL Lactic Acid 1.7 (0.5-2.0) mmol/L Calcium (8.6-10.3) mg/dL Magnesium (1.9-2.7) mg/dL Total Bilirubin (0.2-1.0) mg/dL AST (13-39) U/L ALT (7-52) U/L Alkaline Phosphatase (34-104) U/L CK-MB (CK-2) (0.6-6.3) ng/mL Troponin I 0.00 (<0.04) ng/mL B-Natriuretic Peptide 37 ( - 100) pg/mL Total Protein (6.4-8.9) g/dL Albumin (3.2-5.2) g/dL Globulin (2-4) g/dL Albumin/Globulin Ratio (1-3) TSH (0.34-5.60) mcIU/mL Thyroxine (T4) (6.09-12.23) mcg/mL 10/18/17 10/18/17 Range/Units 17:17 17:17 WBC (3.5-10.8) 10^3/ul RBC (4.00-5.40) 10^6/ul Hgb (12.0-16.0) g/dl Hct (35-47) % MCV (80-97) fL MCH (27-31) pg MCHC (31-36) g/dl RDW (10.5-15) % Plt Count (150-450) 10^3/ul MPV (7.4-10.4) um3 Neut % (Auto) (38-83) % Lymph % (Auto) (25-47) % [place] % (Auto) (0-7) % Eos % (Auto) (0-6) % Baso % (Auto) (0-2) % Absolute Neuts (auto) (1.5-7.7) 10^3/ul Absolute Lymphs (auto) (1.0-4.8) 10^3/ul Absolute Monos (auto) (0-0.8) 10^3/ul Absolute Eos (auto) (0-0.6) 10^3/ul Absolute Basos (auto) (0-0.2) 10^3/ul Absolute Nucleated RBC 10^3/ul Nucleated RBC % APTT (26.0-36.3) seconds Sodium (135-145) mmol/L Potassium (3.5-5.0) mmol/L Chloride (101-111) mmol/L Carbon Dioxide (22-32) mmol/L Anion Gap (2-11) mmol/L BUN (6-24) mg/dL Creatinine (0.51-0.95) mg/dL Est GFR ( Amer) (>60) Est GFR (Non-Af Amer) (>60) BUN/Creatinine Ratio (8-20) Glucose (70-100) mg/dL POC Glucose (mg/dL) 97 (70-100) mg/dL Lactic Acid (0.5-2.0) mmol/L Calcium (8.6-10.3) mg/dL Magnesium (1.9-2.7) mg/dL Total Bilirubin (0.2-1.0) mg/dL AST (13-39) U/L ALT (7-52) U/L Alkaline Phosphatase (34-104) U/L CK-MB (CK-2) (0.6-6.3) ng/mL Troponin I 0.00 (<0.04) ng/mL B-Natriuretic Peptide ( - 100) pg/mL Total Protein (6.4-8.9) g/dL Albumin (3.2-5.2) g/dL Globulin (2-4) g/dL Albumin/Globulin Ratio (1-3) TSH (0.34-5.60) mcIU/mL Thyroxine (T4) (6.09-12.23) mcg/mL Assess/Plan/Problems-Billing Assessment: Ms. Pendleton is a 67 y.o female with a hx of HLD, hypothyroid and thyroid CA, who presented to the emergency room with palpitation causing chest pressure and shortness of breath. - Patient Problems (1) Chest pain Status: Acute Code(s): R07.9 - CHEST PAIN, UNSPECIFIED SNOMED Code(s): 24165623 Comment: Troponins- negative Nuclear stress test today- Low Risk- with a small area of hypoperfusion at the apex started on metprolol yesterday Per cardiology patient is to walk briskly in the halls today and be monitored by the sales technician- completed this this AM- continues to have bigeminy and trigeminy on the monitor with brisk exercise, no chest pain. No chest pain during the night (2) Palpitation Status: Acute Code(s): R00.2 - PALPITATIONS SNOMED Code(s): 11507970 Comment: Patient continue with Bigeminy / trigeminy on the monitor - does report that she did not have any more episodes of chest pain during the night. Metoprolol 12.5 mg BID started as per cardiology recommendations (3) Hypertension Status: Acute Code(s): I10 - ESSENTIAL (PRIMARY) HYPERTENSION SNOMED Code(s) : 08031319 Comment: stable - continue norvasc (4) Hyperlipidemia Status: Acute Code(s): E78.5 - HYPERLIPIDEMIA, UNSPECIFIED SNOMED Code(s): 18283202 Comment: Contniue home medications (5) Hypothyroid Status: Acute Code(s): E03.9 - HYPOTHYROIDISM, UNSPECIFIED SNOMED Code(s): 19164806 Comment: Continue home medication TSH 0.31 (6) DVT prophylaxis Status: Acute Code(s): PUU6652 - SNOMED Code(s): 053388123 Comment: HSQ (7) Full code status Status: Acute Code(s): Z78.9 - OTHER SPECIFIED HEALTH STATUS SNOMED Code(s) : 549761174 Status and Disposition: discharge home
--- NOTE | 2017-10-20 12:28 | PN ---
Cardiology Progress Note Date of Service: 10/20/17 attention coders, please do not bill for this encounter patient asymptomatic still with pvc's on monitor continue with beta-gabe was on PPI in past for chest burning add omeprazole 20 mg po daily can discharge from a cardiac perspective follow up with Dr Poole
[2017-10-20 13:53] VITALS: BP 116/74
--- NOTE | 2017-10-20 21:08 | DS ---
CC: Dr. Khalil; Dr. Poole * DISCHARGE SUMMARY: DATE OF ADMISSION: 10/18/17 DATE OF DISCHARGE: 10/20/17 PROVIDER: Silvia Nicholas NP ATTENDING PHYSICIAN WHILE IN THE HOSPITAL: Soledad Castro DO * (dictated by Silvia Nicholas NP) PRIMARY CARE PROVIDER: Leslie Khalil MD PRIMARY DIAGNOSES: 1. Chest pain. 2. Bigeminy/trigeminy. SECONDARY DIAGNOSES: 1. Hypertension. 2. Hyperlipidemia. 3. Thyroid cancer. 4. Prediabetes. 5. Hypothyroidism. 6. Asthma. STUDIES COMPLETED WHILE IN THE HOSPITAL: The patient had a transthoracic echocardiogram on 10/18/17, conclusion: Mild concentric left ventricular atrophy is observed. There is normal ventricular systolic function, the estimated ejection fraction is 55 to 60%. There is trace to mild mitral regurgitation. There is trace tricuspid regurgitation. No pulmonary hypertension is noted. There is trace pulmonic regurgitation. There is mild dilation of the ascending aorta. No prior studies to compare. She had a chest x-ray done on 10/18/17, radiologist's impression: No active cardiopulmonary disease. She had a nuclear stress completed on 10/19/17. Impression: 1. Small region of reversible hyperperfusion at the apex and apical segments of the inferior wall concerning for stress-induced ischemia. 2. Normal left ventricular wall motion and estimated ejection fraction of 62%. Assessment: Low risk based on nuclear portion. Exercise portion, there is no ischemic changes noted with the EKG. DISCHARGE MEDICATIONS: New home medications: 1. Metoprolol tartrate 12.5 mg p.o. b.i.d. 2. Omeprazole 20 mg p.o. daily. Continued home medications: 1. Aspirin 81 mg p.o. daily. 2. Asmanex 220 mcg p.o. b.i.d. as needed. 3. Magnesium 64 mg p.o. daily. 4. Dulcolax 20 mg p.o. daily as needed. 5. Metformin 500 mg p.o. b.i.d. as needed. 6. Synthroid 125 mcg p.o. daily. 7. Hydrochlorothiazide 12.5 mg p.o. daily. 8. Amlodipine 10 mg p.o. daily. 9. Lipitor 20 mg p.o. daily. HISTORY OF PRESENT ILLNESS AND HOSPITAL COURSE: Ms. Pendleton is a 67-year-old female, who has a known history of palpitations, hypertension, hyperlipidemia, hypothyroid, asthma, who follows with Dr. Poole. She reports that she had a Holter monitor placed on the day prior to her admission to the emergency room as it was noted that she was having bigeminy and trigeminy at times. She states about 3 to 4 weeks ago, her TSH was 0.05 and her Synthroid was lowered. She states on the day of admission, she was concerned because her palpitations were lasting much longer and associated with pressure in her chest and feeling of shortness of breath, she became sweaty, so 911 was called and she was brought to the emergency room for further evaluation. Upon arrival to the emergency room, she was currently not having any symptoms. She did report that the chest pain and pressure did not occur with exertion. She denied any nausea , vomiting, or diarrhea. Denied any dizziness or weakness. Due to her concerning family history and risk factors, she was seen and admitted for rule out acute coronary syndrome. While in the hospital, she had a nuclear stress done, reading as per above. She was seen by Cardiology in consultation. She was noted throughout her hospitalization to be in bigeminy and trigeminy. She was started on metoprolol 12.5 mg p.o. b.i.d. to see if this would help alleviate her symptoms. On the day of discharge, the patient states that she is feeling much better. She had no episodes of chest pressure during the night. She has had no episodes this morning of chest pressure or feeling of palpitations. On the monitor, she continues to have bigeminy and trigeminy with exercise and at rest , but did not develop any further chest pain or shortness of breath. She was also on the day of discharge seen and evaluated by Cardiology, who cleared her safe for discharge. At this time, Ms. Pendleton is stable for discharge home. Vital signs, temperature 98.3, heart rate 70, respirations 16, O2 saturation 97%, blood pressure 116/74. DISCHARGE PLAN: 1. Ms. Pendleton will be discharged back home. Activity as tolerated. She should follow low sodium, heart healthy diet. In regards to her chest pain, she should continue metoprolol 12.5 mg p.o. b.i.d. She should follow up with Dr. Poole, her chief dispatcher service in 1 to 2 weeks for further management of her bigeminy and trigeminy as well as her palpitations. The patient was instructed to return to the emergency room if she developed increased chest pain or pressure, increased shortness of breath, chest pain with pain radiating to her neck and down her left arm or any other concerning symptoms. 2. Hypokalemia. She was given potassium supplementation during her hospitalization. Her potassium level returned to normal. On admission, it was 3.2. On day of discharge, it was 3.9. I will give her a script for repeat BMP in 1 week. 3. Hypothyroid. She should continue on her Synthroid as previously prescribed. She would like a referral to Dr. Hardy from Endocrinology. 4. Hypertension. She should continue on her amlodipine 10 mg as previously prescribed. FOLLOWUP: She should follow up with her primary care provider in 1 to 2 weeks. She should follow up with Dr. Poole in 1 to 2 weeks for further management of her bigeminy and trigeminy. The patient was instructed to return to the emergency room with any increase or change in chest pain, shortness of breath, or any other concerning symptoms. This is a summarization of her hospitalization. For further details, please see the entire medical record. TIME SPENT: Time spent on this discharge was approximately 60 minutes, greater than half the time was spent with the patient discussing her discharge plans and instructions. CONDITION ON DISCHARGE: Stable. SILVIA NICHOLAS NP [id number]/[facility] #: [id number] LIZZY
== END 2017-10-20 14:20 | disposition home or self-care (01) ==
LOC: ED 11:25 → MEDTELE 16:27
PROVIDERS: ADMIT Internal Medicine; ATTEND Internal Medicine
DX: R07.9 Chest pain, unspecified (principal); R00.8 Other abnormalities of heart beat; I10 Essential (primary) hypertension; E78.5 Hyperlipidemia, unspecified; C73 Malignant neoplasm of thyroid gland; E03.9 Hypothyroidism, unspecified; J45.909 Unspecified asthma, uncomplicated; Z79.82 Long term (current) use of aspirin; E87.6 Hypokalemia; R06.02 Shortness of breath
CPT/HCPCS: 36415; 71045; 78452; 80048; 80053; 80061; 82553; 83036; 83605; 83721; 83735; 83880; 84436; 84443; 84484; 85025; 85730; 93005; 93017; 93306; 99283; A9270-GY; A9502; G0378; J0280; J1644; J2785

== ENCOUNTER 2018-06-18 10:47 | Emergency (ER) | payer MEDICARE ==
--- NOTE | 2018-06-18 11:13 | ED ---
HPI Chest Pain - HPI Summary HPI Summary: A 68 y/o F brought in by ambulance presents to ED with c/o CP described as pressure and tightness onset LYMPHEDEMA THERAPIST which has resolved. She was having a colonoscopy at [place] at onset of CP. She has had these same CP previously and they spontaneously resolve when she relaxes. EMS gave pt a nitro en route. She had a cardiac work up in September 2017 and it was normal except for 13% PVCs. She takes a beta-gabe. Associated sx: fatigue, mild nausea since resolved. Denies abd pain. - History of Current Complaint Chief Complaint: EDChestPainROMI Time Seen by Provider: 06/18/18 11:10 Hx Obtained From: Patient Onset/Duration: Resolved Timing: Constant Initial Severity: Mild Current Severity: Mild Pain Intensity: 2 Pain Scale Used: 0-10 Numeric Character: Pressure/Squeezing, Tightness Alleviating Factor(s): Spontaneous Resolution, Other: - pos: releaxing Associated Signs and Symptoms: Positive: Nausea - resolved, Other: - pos: fatigue. Negative: Abdominal Pain - Additional Pertinent History Primary Care Physician: LUTHER - Allergy/Home Medications Allergies/Adverse Reactions: Allergies Allergy/AdvReac Type Severity Reaction Status Date / Time nitrofurantoin Allergy Rash Verified 06/18/18 11:03 amoxicillin [From Augmentin] AdvReac GI Upset Verified 06/18/18 11:03 clavulanic acid AdvReac GI Upset Verified 06/18/18 11:03 [From Augmentin] PMH/Surg Hx/FS Hx/Imm Hx Previously Healthy: No Endocrine/Hematology History: Reports: Hx Thyroid Disease - thyroid cancer 2009 , Other Endocrine/Hematological Disorders - pre dmTYPE2 Denies: Hx Diabetes Cardiovascular History: Reports: Hx Angina - pressure, Hx Hypercholesterolemia, Hx Hypertension - on meds, Other Cardiovascular Problems/Disorders - high cholesterol Denies: Hx Coronary Artery Disease, Hx Myocardial Infarction, Hx Pacemaker/ ICD, Hx Valvular Heart Disease Respiratory History: Denies: Other Respiratory Problems/Disorders GI History: Denies: Other GI Disorders History: Denies: Hx Dialysis, Hx Renal Disease Musculoskeletal History: Denies: Other Musculoskeletal History Sensory History: Reports: Hx Contacts or Glasses Denies: Hx Hearing Aid Opthamlomology History: Reports: Hx Contacts or Glasses Neurological History: Denies: Other Neuro Impairments/Disorders Psychiatric History: Denies: Hx Panic Disorder - Cancer History Cancer Type, Location and Year: thyroid CA - Surgical History Surgery Procedure, Year, and Place: cholecystectomy;, 1974. hysterectomy;1977. sinus surgery X2;. fx thumb;40 yrs ago. thyroidectomy, 2010 Hx Anesthesia Reactions: Yes - 2009, went to [facility] from anesthesia Infectious Disease History: No Infectious Disease History: Denies: Hx Clostridium Difficile, Hx Hepatitis, Hx Human Immunodeficiency Virus (HIV), Hx of Known/Suspected MRSA, Hx Shingles, Hx Tuberculosis, Traveled Outside the [place] in Last 30 Days - Family History Known Family History: Positive: Cardiac Disease - all family members before 50 - Social History Occupation: Retired Lives: With Family Alcohol Use: Rare Alcohol Amount: 1 per week Hx Substance Use: No Substance Use Type: Reports: None Hx Tobacco Use: No Smoking Status (MU): Never Smoked Tobacco Review of Systems Positive: Fatigue Positive: Chest Pain Positive: Nausea. Negative: Abdominal Pain All Other Systems Reviewed And Are Negative: Yes Physical Exam - Summary Physical Exam Summary: Constitutional: Well-developed, Well-nourished. (-) Distressed. Mildly sedated. Skin: Warm, Dry HENT: Normocephalic; Atraumatic Eyes: Conjunctiva normal Neck: Musculoskeletal ROM normal neck. (-) JVD, (-) Stridor, (-) Tracheal deviation Cardio: Rhythm regular, rate normal, Heart sounds normal; Intact distal pulses; The pedal pulses are 2+ and symmetric. Radial pulses are 2+ and symmetric. (-) Murmur Pulmonary/Chest wall: Effort normal. (-) Respiratory distress, (-) Wheezes, (-) Rales Abd: Soft, (-) tenderness, (-) Distension, (-) Guarding, (-) Rebound Musculoskeletal: (-) Edema Lymph: (-) Cervical adenopathy Neuro: Alert, Oriented x3 Psych: Mood and affect Normal Triage Information Reviewed: Yes Vital Signs On Initial Exam: Initial Vitals Temp Pulse Resp BP Pulse Ox 97.5 F 51 16 137/73 95 06/18/18 10:55 06/18/18 10:55 06/18/18 10:55 06/18/18 10:55 06/18/18 10:55 Vital Signs Reviewed: Yes Diagnostics - Vital Signs Vital Signs Temp Pulse Resp BP Pulse Ox 06/18/18 10:55 97.5 F 51 16 137/73 95 - Laboratory Result Diagrams: 06/18/18 11:48 06/18/18 11:48 Lab Statement: Any lab studies that have been ordered have been reviewed, and results considered in the medical decision making process. - Radiology CXR Radiology Interpretation Completed By: Radiologist Summary of Radiographic Findings: IMPRESSION: NO ACTIVE CARDIOPULMONARY DISEASE IS NOTED. ED provider has reviewed this report. ABD Radiology Interpretation Completed By: Radiologist Summary of Radiographic Findings: IMPRESSION: No free air or obstruction is noted. ED provider has reviewed this report. - EKG 1215 Cardiac Rate: Bradycardia - 50 bpm EKG Rhythm: Sinus Bradycardia Summary of EKG Findings: Sinus marisel at 50 bpm, normal UT, normal QRS, normal QTc, normal axis, normal ST, normal T-waves. Re-Evaluation - Re-Evaluation 1 Re-Evaluation Time: 13:05 Change: Improved Comment: Discussing results with pt and plans for discharge. Pt is agreeable. Chest Pain Course/Dx - Course Course Of Treatment: Pt is a 68 y/o F who is mildly sedated brought in by ambulance presenting chest pressure and tightness which has since resolved. She was having a colonoscopy at [place] at onset. She has had these same CP previously. EMS gave pt a nitro en route. She had a cardiac work up in September 2017 and it was normal except for 13% PVCs. She takes a beta-gabe. CXR shows no active cardiopulmonary disease. ABD XR shows no free air or obstruction is noted. Lab work is without significant abnormality except total protein: 6.3. EKG shows sinus marisel at 50 bpm otherwise normal EKG. Patient will be discharged home. - Diagnoses Provider Diagnoses: Chest pain Discharge - Sign-Out/Discharge Documenting (check all that apply): Patient Departure - D/C Patient Received Moderate/Deep Sedation with Procedure: No - Discharge Plan Condition: Improved Disposition: HOME Patient Education Materials: Chest Pain (ED) Print Language: [place] Referrals: Leslie Khalil MD [Primary Care Provider] - - Attestation Statements Document Initiated by Scribe: Yes Documenting Scribe: Sudhir Umaña Provider For Whom Scribe is Documenting (Include Credential): Britt Stock Scribe Attestation: I, Sudhir Umaña, scribed for Britt Pruett on 06/18/18 at 1310.
[2018-06-18 12:00] LABS: ABS Basophils 0 10^3/ul (0-0.2); ABS Eosinophils 0 10^3/ul (0-0.6); ABS Lymphocytes 1.8 10^3/ul (1.0-4.8); ABS Monocytes 0.3 10^3/ul (0-0.8); ABS Nucleated RBC 0 10^3/ul; Eosinophil % 1.2 %; Hematocrit 40 % (33-41); Hemoglobin 13.4 g/dL (12.0-16.0); Mean Corpuscular HGB Conc 34 g/dL (31-36); Mean Corpuscular Hemoglobin 30 pg (27-31); Mean Corpuscular Volume 88 fL (80-97); Mean Platelet Volume 8.1 fL (7.4-10.4); Nucleated Red Blood Cells % 0.1; Platelet Count 209 10^3/uL (150-450); Red Blood Count 4.48 10^6 /uL (3.70-4.87); Red Cell Distribution Width 14 % (10.5-15); White Blood Count 4.1 10^3/uL (3.5-10.8)
[2018-06-18 12:21] LABS: Albumin 4.3 g/dL (3.2-5.2); Albumin/Globulin Ratio 2.2 (1-3); Calcium 8.8 mg/dL (8.6-10.3); EGFR African American 86.3 (>60); EGFR Non-African American 71.3 (>60); Magnesium 2.1 mg/dL (1.9-2.7); Potassium 3.6 mmol/L (3.5-5.0); Total Bilirubin 0.6 mg/dL (0.2-1.0); Total Protein 6.3 g/dL (6.4-8.9)
[2018-06-18 13:05] VITALS: BP 135/70
== END 2018-06-18 13:11 | disposition home or self-care (01) ==
LOC: ED 10:47
DX: R07.9 Chest pain, unspecified (principal); R11.0 Nausea; R53.83 Other fatigue; Z88.0 Allergy status to penicillin; Z85.850 Personal history of malignant neoplasm of thyroid
CPT/HCPCS: 36415; 71045; 74019; 80053; 83605; 83735; 84484; 85025; 93005; 99283

== ENCOUNTER 2019-03-11 09:13 | Emergency (ER) | payer MEDICARE ==
--- NOTE | 2019-03-11 09:46 | ED ---
Complex/Multi-Sys Presentation - HPI Summary HPI Summary: Patient is a 69 y/o F presenting to [facility] with complaints of GAN, dizziness, unsteadiness, change in speech, and generalized weakness. She also reports experiencing a fall this morning. Per triage, "recently had medication change and has had lower BPs than normal (amlodipine increase)". Dizziness is characterized as intermittent, room-spinning, and worse with movement. Patient' s states that the patient's speech has been "thick" compared to normal since this morning. Ear ringing and photophobia are endorsed as well. She states that she has had similar previous episodes of vertigo and HAs. Patient claims that she has had a difficult year physically and emotionally. She states that she was in [place] around July 2018 where she had what she had thought were four TIA episodes within 1.5 hours. Patient was evaluated in [place] and claims that she was told that she had complete occlusion of one carotid artery and near-complete occlusion of the other. However, when patient returned to the [place] she states that she was told that this was not true and she was occluded 36-38% in both. Patient is being followed by Dr. Burch, neurology, in [place]. She states that it is believed that these episodes she had in [place] were actually seizures. Patient is on Keppra. She states that these episodes have not occurred since. Patient also describes episodes of "flashing events" at her right eye. She has been evaluated by manager systems and claims it is unknown what these episodes are. PMHx of thyroid cancer, HLD, HTN, dry-eye syndrome reported. PSHx of cholecystectomy, hysterectomy noted. She denies tobacco, alcohol, and substances. Home medications and allergies are reviewed. - History Of Current Complaint Chief Complaint: EDDizziness Time Seen by Provider: 03/11/19 09:38 Hx Obtained From: Patient Onset/Duration: Lasting Hours, Still Present Timing: Intermittent, Lasting: - dizziness, Hours Severity Currently: Moderate Location: Pain At: - head Character: Typical Headache Aggravating Factor(s): movement aggravates dizziness Alleviating Factor(s): nothing Associated Signs And Symptoms: Positive: Dizziness, Headache, Other - positive - unsteadiness, changes in speech, generalized weakness, ear ringing, photophobia, fall - Allergies/Home Medications Allergies/Adverse Reactions: Allergies Allergy/AdvReac Type Severity Reaction Status Date / Time metoprolol Allergy Muscle Ache Verified 03/11/19 09:20 nitrofurantoin Allergy Rash Verified 06/18/18 11:03 amoxicillin [From Augmentin] AdvReac GI Upset Verified 06/18/18 11:03 clavulanic acid AdvReac GI Upset Verified 06/18/18 11:03 [From Augmentin] Home Medications: Home Medications Cholecalciferol CAP/TAB(NF) [Vitamin D3 CAP/TAB (NF)] 5,000 unit PO DAILY [History Confirmed 03/11/19] Losartan Potassium 100 mg PO DAILY 03/11/19 [History Confirmed 03/11/19] Multivitamins/Minerals TAB* [Theragran/minerals TAB*] 1 tab PO DAILY 03/11/19 [ History Confirmed 03/11/19] Nadolol (NF) 10 mg PO DAILY 03/11/19 [History Confirmed 03/11/19] Oxybutynin TAB* [Ditropan TAB*] 10 mg PO DAILY 03/11/19 [History Confirmed 03/11] Polyethylene Glycol 3350* [Miralax*] 17 gm PO BID 03/11/19 [History Confirmed ] Topiramate TAB(*) [Topamax 25 MG tab] 25 mg PO BEDTIME 03/11/19 [History Confirmed 03/11/19] levETIRAcetam TAB* [Keppra TAB*] 500 mg PO BID 03/11/19 [History Confirmed 03/11] PMH/Surg Hx/FS Hx/Imm Hx Endocrine/Hematology History: Reports: Hx Thyroid Disease - thyroid cancer 2009 , Other Endocrine/Hematological Disorders - pre dmTYPE2 Denies: Hx Diabetes Cardiovascular History: Reports: Hx Angina - pressure, Hx Hypercholesterolemia, Hx Hypertension - on meds, Other Cardiovascular Problems/Disorders - high cholesterol Denies: Hx Coronary Artery Disease, Hx Myocardial Infarction, Hx Pacemaker/ ICD, Hx Valvular Heart Disease Respiratory History: Denies: Other Respiratory Problems/Disorders GI History: Denies: Other GI Disorders History: Denies: Hx Dialysis, Hx Renal Disease Musculoskeletal History: Denies: Other Musculoskeletal History Sensory History: Reports: Hx Contacts or Glasses Denies: Hx Hearing Aid Opthamlomology History: Reports: Hx Contacts or Glasses Neurological History: Denies: Other Neuro Impairments/Disorders Psychiatric History: Denies: Hx Panic Disorder - Cancer History Cancer Type, Location and Year: thyroid CA - Surgical History Surgery Procedure, Year, and Place: cholecystectomy;, 1973. hysterectomy;1977. sinus surgery X2;. fx thumb;40 yrs ago. thyroidectomy, 2010 Hx Anesthesia Reactions: Yes - 2009, went to [facility] from anesthesia Infectious Disease History: No Infectious Disease History: Denies: Hx Clostridium Difficile, Hx Hepatitis, Hx Human Immunodeficiency Virus (HIV), Hx of Known/Suspected MRSA, Hx Shingles, Hx Tuberculosis, Traveled Outside the [place] in Last 30 Days - Family History Known Family History: Positive: Cardiac Disease - all family members before 50 - Social History Alcohol Use: Rare Alcohol Amount: 1 per week Hx Substance Use: No Substance Use Type: Reports: None Hx Tobacco Use: No Smoking Status (MU): Never Smoked Tobacco Review of Systems Constitutional: Other - positive - generalized weakness Eyes: Other - positive - ear ringing Positive: Photophobia Musculoskeletal: Other - positive - fall Positive: Arthralgia Neurological: Other - positive - dizziness, unsteadiness, change in speech Positive: Headache All Other Systems Reviewed And Are Negative: Yes Physical Exam - Summary Physical Exam Summary: Constitutional: Well-developed, Well-nourished, Alert. (-) Distressed Skin: Warm, Dry HENT: Normocephalic; Atraumatic Eyes: Conjunctiva normal; there is nystagmus with rightward gaze Neck: Musculoskeletal ROM normal neck. (-) JVD, (-) Stridor, (-) Tracheal deviation Cardio: Rhythm regular, rate normal, Heart sounds normal; Intact distal pulses; Radial pulses are 2+ and symmetric. (-) Murmur Pulmonary/Chest wall: Effort normal. (-) Respiratory distress, (-) Wheezes, (-) Rales Abd: Soft, (-) tenderness, (-) Distension, (-) Guarding, (-) Rebound Musculoskeletal: (-) Edema Lymph: (-) Cervical adenopathy Neuro: Alert, Oriented x3, Strength normal, Cranial nerves II-XII are grossly intact. Patient has a rightward leaning gait; (+) Nystagmus, (-) Ataxia by finger to nose testing, (-) Sensory deficit. GCS 15. Psych: Mood and affect Normal Triage Information Reviewed: Yes Vital Signs On Initial Exam: Initial Vitals Temp Pulse Resp BP Pulse Ox 97.6 F 67 16 106/79 98 03/11/19 09:14 03/11/19 09:14 03/11/19 09:14 03/11/19 09:14 03/11/19 09:14 Vital Signs Reviewed: Yes - Billie Coma Scale Best Eye Response: 4 - Spontaneous Best Motor Response: 6 - Obeys Commands Best Verbal Response: 5 - Oriented Coma Scale Total: 15 Procedures - Sedation Patient Received Moderate/Deep Sedation with Procedure: No Diagnostics - Vital Signs Vital Signs Temp Pulse Resp BP Pulse Ox 03/11/19 09:14 97.6 F 67 16 106/79 98 - Laboratory Result Diagrams: 03/11/19 10:04 03/11/19 10:04 Lab Statement: Any lab studies that have been ordered have been reviewed, and results considered in the medical decision making process. - CT HEAD CTA CT Interpretation Completed By: Radiologist Summary of CT Findings: Head CT: 1. No acute intracranial abnormality by CT ( MRI is more sensitive for acute infarct). Head CTA: 1. No acute occlusive disease, severe stenosis or aneurysm. 2. Anatomic variants as above. Neck CTA : 1. No acute occlusive disease or severe stenosis. 2. Status post thyroidectomy. THIS REPORT WAS REVIEWED BY ED PHYSICIAN. - EKG 0922 Cardiac Rate: NL - rate of 63 BPM EKG Rhythm: Sinus Rhythm Summary of EKG Findings: EKG showed NSR with rate of 63 BPM, no STEMI. ED physician has reviewed and interpreted this EKG. Re-Evaluation - Re-Evaluation First Eval Re-Evaluation Time: 12:06 Change: Improved Comment: [id number] Patients vertigo is improved. She just received GAN cocktail, will re-evaluate once fluids are completed. Second Eval Re-Evaluation Time: 12:37 Change: Improved Comment: GAN is improved, patient is agreeable with discharge. Complex Multi-Symp Course/Dx Course Of Treatment: Patient is here with vertigo and difficulty walking. Patient has had these symptoms periodically and is currently undergoing physical therapy for that. Patient also has a headache. Patient's had negative MRI of her brain this year. However given patient's age, a CVA workup was performed. Patient negative CTA of her brain. Patient is given meclizine with vast improvement in her vertigo. Patient was given a headache cocktail with near resolution of her headache. Patient discharged home with neurology follow-up. - Diagnoses Provider Diagnoses: Vertigo, Tinnitus, Headache Discharge ED - Sign-Out/Discharge Documenting (check all that apply): Patient Departure - discharge - Discharge Plan Condition: Stable Disposition: HOME Prescriptions: Meclizine TAB* [Antivert 12.5 TAB*] 25 mg PO TID PRN #30 tab PRN Reason: Dizziness Patient Education Materials: Vertigo (ED), Acute Headache (ED), Tinnitus (ED) Referrals: Leslie Khalil MD [Primary Care Provider] - Prakash Mckee MD [Medical Doctor] - Additional Instructions: Start taking the Meclizine that was sent to your pharmacy. Call your neurologist today to set up an appointment. If you are unable to, call our neurologist, Dr. Mckee. Please return to ED for any one-sided weakness, difficulty speaking, or any other new, worsening, or concerning symptoms. Please make all follow-ups in 1-3 days unless I advise you otherwise. - Billing Disposition and Condition Condition: STABLE Disposition: Home - Attestation Statements Document Initiated by Baljit: Yes Documenting Scribe: GORGE PENALOZA Provider For Whom Baljit is Documenting (Include Credential): JYOTHI MORSE MD Scribe Attestation: I, GORGE PENALOZA, scribed for JYOTHI MORSE MD on 03/11/19 at 1510. Scribe Documentation Reviewed: Yes Provider Attestation: The documentation as recorded by the GORGE pack accurately reflects the service I personally performed and the decisions made by me, JYOTHI MORSE MD Status of Scribe Document: Viewed
--- OUTSIDE RECORDS SUMMARY | 2019-03-11 09:53 | XMS REPORT | Summary of Care ---
:1950 Author Organization [facility] Address [address] [facility] [place] [address] Care Team Providers Name Role Phone Leslie Khalil Primary Care Provider Jordan Poole Unavailable Melly Gasca Unavailable Mine Heath RN Unavailable Unavailable Reason for Visit Reason Comments Follow-up Follow-up to recent colonoscopy. Encounter Details Date Type Department Care Team Description 01/30/2019 Office Visit Hola Juárez, Encounter to discuss colonoscopy results (Primary Dx); Gastroenterology/Hepa Yvonne Lenz NP Constipation, unspecified constipation type tology 1 [facility] [address] [facility] [place] [address] [place] [address] Allergies Active Allergy Reactions Severity Noted Date Comments Clarithromycin GI Reaction 01/16/2014 Dextran 70 In Saline Other 04/25/2010 Metoprolol Succinate-Polysorbate 80 Musculoskeletal 02/26/2013 Arms ache documented as of this encounter (statuses as of 01/30/2019) Medications Medication Sig Dispensed Refills Start Date End Date Status cholecalciferol Take 400 Units by 0 Active (VITAMIN D) 400 UNIT mouth DAILY. Oral TabIndications: Diverticulitis Multiple Take by mouth. 0 Active Vitamins-Minerals (MULTIVITAL PO) ibuprofen (MOTRIN) 800 Take 1 Tab by 90 Tab 11 10/12/2017 Active MG Oral Tab mouth EVERY SIX HOURS NEEDED for Pain. albuterol HFA (VENTOLIN Take 2 Puffs by 18 g 5 04/23/2018 Active HFA) 108 (90 Base) inhalation EVERY MCG/ACT Inhalation Aero FOUR HOURS SolnIndications: SOB NEEDED (sob). (shortness of breath) Bisacodyl (DULCOLAX RE) Place per rectum 0 Active NEEDED. polyethylene glycol Take 17 g by 1020 g 0 06/12/2018 Active (MIRALAX) Oral Powder mouth TWICE DAILY. amLodipine (NORVASC) 10 TAKE 1 TABLET BY 90 Tab 3 07/02/2018 Active MG Oral TabIndications: MOUTH EVERY DAY Essential hypertension Losartan Potassium 100 TAKE 1 TABLET BY 90 Tab 3 08/19/2018 Active MG Oral Tab MOUTH EVERY DAY Magnesium Cl-Calcium Take by mouth. 0 Active Carbonate (SLOW MAGNESIUM/CALCIUM PO) Lancets Does not apply 1 Appl by Does 100 Each 3 09/05/2018 Active MiscIndications: not apply route. Elevated blood sugar Brand:Insurance preferred Dx:E11.9 non-Insulin dependent Test Blood Glucose 2 time(s) A DAY Lancet Devices (AUTOLET 1 Each by Does 100 Each 0 09/05/2018 Active PLUS) Does not apply not apply route MiscIndications: TWICE DAILY. Elevated blood sugar Glucose Blood (COOL 1 Each by In 100 Each 3 09/11/2018 Active BLOOD GLUCOSE TEST Vitro route TWICE STRIPS) In Vitro DAILY. Dx. E11.9, StripIndications: no insul. Brand Elevated blood sugar ins preferred. Blood Glucose Monitor 1 Device by Does 1 Device 0 09/11/2018 Active Software Does not apply not apply route DeviceIndications: DIRECTED. Elevated blood sugar contolled non-insulin dependent diabetes. Brand: Insurance preferred levothyroxine take 1 tablet by 90 Tab 3 11/18/2018 Active (SYNTHROID) 125 MCG mouth once daily Oral Tab BEFORE BREAKFAST fluticasone (FLONASE) USE TWO SPRAYS IN 3 Bottle 5 11/25/2018 Active 50 MCG/ACT Nasal EACH NOSTRIL Suspension EVERY DAY Aspirin 81 MG Oral Tab Take 81 mg by 0 Active mouth DAILY. levetiracetam (KEPPRA) Take 500 mg by 0 Active 500 MG Oral Tab mouth TWICE DAILY. nadolol (CORGARD) 20 MG Take 1 Tab by 135 Tab 3 12/13/2018 Active Oral TabIndications: mouth DAILY. Ventricular arrhythmia Extra 20 mg as needed atorvastatin (LIPITOR) Take 1 Tab by 90 Tab 3 12/13/2018 Active 40 MG Oral Tab mouth DAILY. topiramate (TOPAMAX) 25 take 1 tablet by 0 12/19/2018 Active MG Oral Tab mouth every evening for 1 week then take 2 tablets every evening oxybutynin (DITROPAN Take 1 Tab by 90 Tab 1 01/22/2019 Active XL) 5 MG Oral TABLET SR mouth DAILY. 24 HRIndications: Urge incontinence documented as of this encounter (statuses as of 01/30/2019) Active Problems Problem Noted Date Cerebrovascular accident (CVA) 07/25/2018 Other forms of angina pectoris 07/22/2018 TIA (transient ischemic attack) 07/19/2018 Overview: [place]- 07/17/18- Ultrasound shows 78% block Bilateral dry eyes 03/07/2016 Midline low back pain with right-sided sciatica 05/17/2015 Chronic low back pain 04/17/2014 Dermatitis due to plants, including poison anthony, sumac, and oak 11/14/2013 Elbow pain 03/06/2013 Lipid disorder 02/19/2013 Overview: 02/12 blood work shows basic untreated cholesterol Chronic nonallergic rhinitis 06/21/2012 SHELTON on CPAP 02/20/2012 BMI 29.0-29.9,adult 08/04/2011 Zoonotic bacterial disease 03/08/2011 Overview: Vaginal discharge - following with instrument calibrator S/P ADRIANO (total abdominal hysterectomy) 11/10/2010 Overview: Ovaries remain- no cervix 1976 Fatty liver 02/10/2010 Hypothyroid 02/10/2010 Overview: 112mcg - tsh 6. 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 Needs TBG and ultrasound annually for first 5 years -for thryoid cancer follow up GERD (gastroesophageal reflux disease) 02/03/2010 Constipation 02/03/2010 Overview: Upper endoscopy , CT-scan of the abdomen - Dr Vergara 12/10 Colon- 04/09 Screening colon 05/15 - normal repeat in [address] Vergara Chest pain 02/03/2010 Overview: Nuclear stress test-[address] Lainez; 2005 ekg 07/10 Cath ~ 1999- [place]- Told normal documented as of this encounter (statuses as of 01/30/2019) Resolved Problems Problem Noted Date Resolved Date Type 2 diabetes mellitus without complication, without 07/22/2018 09/03/2018 long-term current use of insulin Unspecified sinusitis (chronic) 02/03/2010 01/16/2014 Overview: Getting allergy shots 2 sinus surgeries- Dr Batista- [id number] documented as of this encounter (statuses as of 01/30/2019) Immunizations Name Administration Dates Next Due Influenza (IM) Preservative Free 01/19/2019, 12/09/2015, 02/15/2015, 01/05/2014, 2013, 04/23/2012 Influenza Vaccine High Dose 02/20/2018 PNEUMOCOCCAL POLYSACCHARIDE VACCINE 09/11/2017, 03/23/2015 Pneumococcal Conjugate Vaccine 05/31/2016 TDAP Vaccine 12/10/2014 ZOSTER (ZOSTAVAX) VACCINE 04/25/2013 documented as of this encounter Social History Tobacco Use Types Packs/Day Years Used Date Never Smoker Smokeless Tobacco: Never Used Alcohol Use Drinks/Week oz/Week Comments No 0 Standard drinks or equivalent 0.0 Social Isolation Answer Date Recorded In a typical week, how many times do you More than three times a week 2017 talk on the phone with family, friends, or neighbors? How often do you get together with friends Three times a week 03/20/2018 or relatives? How often do you attend lutheran or More than 4 times per year 03/20/2018 buddhism services? Do you belong to any clubs or Yes 03/20/2018 organizations such as lutheran groups, unions, fraternal or athletic groups, or school groups? How often do you attend meetings of the More than 4 times per year 03/20/2018 clubs or organizations you belong to? Are you now , , , 03/20/2018 , never or living with a partner? Physical Activity Answer Date Recorded On average, how many days per week do you engage in moderate to 3 days 2017 strenuous exercise (like walking fast, running, jogging, dancing, swimming, biking, or other activities that cause a light or heavy sweat)? On average, how many minutes do you engage in exercise at this 60 min 2017 level? Stress Answer Date Recorded Do you feel stress - tense, restless, nervous, or anxious, Not at all 2017 or unable to sleep at night because your mind is troubled all the time - these days? Financial Resource Strain Answer Date Recorded How hard is it for you to pay for the very basics like Not hard at all 2017 food, housing, medical care, and heating? Intimate Partner Violence Answer Date Recorded Within the last year, have you been afraid of your partner or No 03/20/2018 ex-partner? Within the last year, have you been humiliated or emotionally No 03/20/2018 abused in other ways by your partner or ex-partner? Within the last year, have you been kicked, hit, slapped, or No 03/20/2018 otherwise physically hurt by your partner or ex-partner? Within the last year, have you been raped or forced to have any No 03/20/2018 kind of sexual activity by your partner or ex-partner? Food Insecurity Answer Date Recorded Within the past 12 months, you worried that your food would Never true 2017 run out before you got money to buy more. Within the past 12 months, the food you bought just didn't Never true 2017 last and you didn't have money to get more. Transportation Needs Answer Date Recorded In the past 12 months, has lack of transportation kept you from No 03/20/2018 medical appointments or from getting medications? In the past 12 months, has lack of transportation kept you from No 03/20/2018 meetings, work, or getting things needed for daily living? Sex Assigned at Date Recorded Not on file Job Start Date Occupation Industry Not on file Not on file Not on file Travel History Travel Start Travel End No recent travel history available. documented as of this encounter Last Filed Vital Signs Vital Sign Reading Time Taken Comments Blood Pressure 128/82 01/30/2019 8:05 AM EDT Pulse 60 01/30/2019 8:05 AM EDT Temperature 36 01/30/2019 8:05 AM C (96.8 EDT F) Respiratory Rate - - Oxygen Saturation - - Inhaled Oxygen Concentration - - Weight 73.9 kg (163 lb) 01/30/2019 8:05 AM Stated by pt. EDT Height 162.6 cm (5' 4") 01/30/2019 8:05 AM EDT Body Mass Index 27.98 01/30/2019 8:05 AM EDT documented in this encounter Patient Instructions Patient InstructionsWillYvonne kerns NP - 01/30/2019 8:00 AM EDTFollow up here as needed Thank you for choosing the [facility] for your needs today! -Yvonne Juárez N.P. , Please call if you need to cancel or change your appt. time. Thank you for choosing [facility] for your health care needs, and for consulting with [facility] today. You may receive a survey following this visit, or after an upcoming hospital stay. As easy as it is to feel overloaded with surveys, we are required to send them out randomly and they do provide important feedback so that we may serve your needs in the best way. Please do take the few minutes required to complete the survey if you receive one. We get them too, after seeing the doctor, and they only take a few minutes to complete. documented in this encounter Progress Notes Yvonne Juárez NP - 01/30/2019 8:00 AM EDT PATIENT: Krupa Pendleton : 1950 DATE OF SERVICE: 01/30/2019 REFERRING PRACTITIONER: Yvonne Juárez PRIMARY CARE PROVIDER: Leslie Khalil CHIEF COMPLAINT: Chief Complaint Patient presents with Follow-up Follow-up to recent colonoscopy. Subjective HISTORY OF PRESENT ILLNESS: Krupa Pendleton is a 69-y.o. female who presents for follow-up of recent colonoscopy which was positive for TA polyps and IC valve lipoma. She reports her constipation is doing well with Miralax and Magnesium supplementation. Denies abdominal pain,heartburn, dysphagia, fatigue, nausea, vomiting, melena, hamatemesis, hematochezia, constipation, diarrhea, jaundice, fevers, chills, night sweats, weight loss, easy bruising, chest pain, shortness of breath, dysuria, hematuria, pyuria, joint pains, acholic stools, dark urine or systemic pruritis. Current Outpatient Medications Medication Sig albuterol HFA (VENTOLIN HFA) 108 (90 Base) MCG/ACT Inhalation Aero Soln Take 2 Puffs by inhalation EVERY FOUR HOURS NEEDED (sob). amLodipine (NORVASC) 10 MG Oral Tab TAKE 1 TABLET BY MOUTH EVERY DAY Aspirin 81 MG Oral Tab Take 81 mg by mouth DAILY. atorvastatin (LIPITOR) 40 MG Oral Tab Take 1 Tab by mouth DAILY. Bisacodyl (DULCOLAX RE) Place per rectum NEEDED. Blood Glucose Monitor Software Does not apply Device 1 Device by Does not apply route DIRECTED. contolled non-insulin dependent diabetes. Brand: Insurance preferred cholecalciferol (VITAMIN D) 400 UNIT Oral Tab Take 400 Units by mouth DAILY. fluticasone (FLONASE) 50 MCG/ACT Nasal Suspension USE TWO SPRAYS IN EACH NOSTRIL EVERY DAY Glucose Blood (COOL BLOOD GLUCOSE TEST STRIPS) In Vitro Strip 1 Each by In Vitro route TWICE DAILY. Dx. E11.9, no insul. Brand ins preferred. ibuprofen (MOTRIN) 800 MG Oral Tab Take 1 Tab by mouth EVERY SIX HOURS NEEDED for Pain. Lancet Devices (AUTOLET PLUS) Does not apply Misc 1 Each by Does not apply route TWICE DAILY. Lancets Does not apply Misc 1 Appl by Does not apply route. Brand: Insurance preferred Dx:E11.9 non-Insulin dependent Test Blood Glucose 2 time( s) A DAY levetiracetam (KEPPRA) 500 MG Oral Tab Take 500 mg by mouth TWICE DAILY. levothyroxine (SYNTHROID) 125 MCG Oral Tab take 1 tablet by mouth once daily BEFORE BREAKFAST Losartan Potassium 100 MG Oral Tab TAKE 1 TABLET BY MOUTH EVERY DAY Magnesium Cl-Calcium Carbonate (SLOW MAGNESIUM/CALCIUM PO) Take by mouth. Multiple Vitamins-Minerals (MULTIVITAL PO) Take by mouth. nadolol (CORGARD) 20 MG Oral Tab Take 1 Tab by mouth DAILY. Extra 20 mg as needed oxybutynin (DITROPAN XL) 5 MG Oral TABLET SR 24 HR Take 1 Tab by mouth DAILY. polyethylene glycol (MIRALAX) Oral Powder Take 17 g by mouth TWICE DAILY. topiramate (TOPAMAX) 25 MG Oral Tab take 1 tablet by mouth every evening for 1 week then take2 tablets every evening No current facility-administered medications for this visit. Allergies Allergen Reactions Biaxin [Clarithromycin] GI Reaction Macrodex [Dextran 70 In Saline] Other Toprol Xl [Metoprolol Succinate-Polysorbate 80] Musculoskeletal Arms ache REVIEW OF SYSTEMS: All remaining review of systems was negative except for as noted in the history of present illness/subjective. Objective PHYSICAL EXAMINATION: VITALS: BP 128/82 | Pulse 60 | Temp 96.8 F (36 C) | Ht 5' 4" (1.626 m) | Wt 163 lb (73.9 kg) Comment: Stated by pt. | BMI 27.98 kg/m Body mass index is 27.98 kg/m. GENERAL: alert, oriented, no acute distress. HEENT: No scleral icterus, MMM Psych: Affect normal Neck: supple Extrmities: no edema Skin: clear Neuro: gait normal, a&o x 3 RECTAL: exam deferred. . IMPRESSION: ICD-9-CM ICD-10-CM 1. Encounter to discuss colonoscopy results V65.49 Z71.2 2. Constipation, unspecified constipation type 564.00 K59.00 Plan PLAN: Patient Instructions Follow up here as needed Thank you for choosing the [facility] for your needs today! -Yvonne Juárez N.P. , Please call if you need to cancel or change your appt. time. Thank you for choosing [facility] for your health care needs, and for consulting with [facility] today. You may receive a survey following this visit, or after an upcoming hospital stay. As easy as it is to feel overloaded with surveys, we are required to send them out randomly and they do provide important feedback so that we may serve your needs in the best way. Please do take the few minutes required to complete the survey if you receive one. We get them too, after seeing the doctor, and they only take a few minutes to complete. Author: Yvonne Juárez NP 01/30/2019 08:37 documented in this encounter Plan of Treatment Date Type Specialty Care Team Description 02/10/2019 Lab Internal Medicine 03/13/2019 Ancillary Procedure Radiology 03/13/2019 Office Visit Internal Medicine Leslie Khalil MD [address] [place] [address] [phone] 06/25/2019 Office Visit Cardiology Jordan Poole MD [facility] [place] [address] [phone] Health Maintenance Due Date Last Done Comments ZOSTER IMMUNIZATION SERIES 06/20/2013 04/25/2013 (2 of 3) MAMMOGRAM (SCREENING) 03/12/2019 03/12/2018, 03/08/2017, 03/07/2016, Additional history exists DEPRESSION SCREENING 03/20/2019 03/20/2018 FALL RISK ASSESSMENT 03/20/2019 03/20/2018, 03/20/2018 MEDICARE ANNUAL WELLNESS 03/20/2019 03/20/2018, 03/07/2016, VISIT 03/04/2015 LIPID DISORDER SCREENING 12/14/2019 12/13/2018, 10/02/2018, 03/08/2018, Additional history exists DIABETES SCREENING 01/02/2020 01/01/2019, 10/02/2018, 10/02/2018, Additional history exists COLONOSCOPY SCREENING 01/16/2022 01/16/2019, 01/16/2019, 06/18/2018, Additional history exists OSTEOPOROSIS SCREENING 08/20/2028 08/20/2018, 04/22/2012 PNEUMOCOCCAL 65+YRS Completed 09/11/2017, 05/31/2016, 03/23/2015 INFLUENZA VACCINE Completed 01/19/2019, 02/20/2018, 12/09/2015, Additional history exists HPV IMMUNIZATION SERIES Aged Out No longer eligible based on patient's age to complete this topic MENINGOCOCCAL VACCINE IMM Aged Out No longer eligible based on patient's age to complete this topic documented as of this encounter Goals Goal Patient Goal Associated Recent Patient-Stated? Author Type Problems Progress Blood Pressure Blood Pressure 128/82 No Padmaja, < 150/90 (01/30/2019 CARMELA Valenzuela 8:05 AM EDT) Note: This is an individualized treatment (blood pressure) goal for Krupa Pendleton: Displayed above (on the left) is your goal for blood pressure control. Your most recent blood pressure is also shown above, on the right. You should try to achieve blood pressures that are lower than your goal listed above (on the left). Glycohemoglobin A1c < 7.0 Diabetes 6.2 (10/02/2018 8:14 AM No Leslie Khalil MD EDT) Note: This is an individualized treatment (diabetes control, HgbA1C) goal for Krupa Pendleton: Displayed above is your progress towards your HgbA1C goal. Your goal is shown above (on the left); your most recent HgbA1C is shown on the right. Note that lower numbers are better. Weight loss vs. 18 mo Lifestyle 36 (01/30/2019 8:05 AM No Bianca Giang FNP max (lbs) >= 10 EDT) Note: This is an individualized lifestyle goal for Krupa Pendleton: Your body mass index (BMI) is more than 30. You should lose weight. A reasonable starting goal is to lose 10 pounds. Displayed above is how many pounds you have lost thus far towards your 10 pound weight loss goal. Keep immunizations current Lifestyle No Leslie Khalil MD Note: This is an individualized lifestyle goal for Krupa Pendleton: Please be sure to keep up-to-date on recommended immunizations. For example, this would include a yearly influenza vaccine. Immunization status can be seen by looking at the Health Maintenance sections of your [facility], Plan of Care, and any After Visit Summaries. Take all prescribed medications as Self-management No Bianca Giang FNP directed Note: This is an individualized self-management goal for Krupa Pendleton: Please take all prescribed medications as directed. 1. Do not skip doses. If you cannot afford your medications, talk with your doctor. 2. Use a pill reminder system such as a pill box if needed. Your pharmacist can help you with this. 3. Contact your Pharmacy 5 days before your medication runs out. If you cannot take your medications for any reasons, talk with your doctor. 4. Please bring all of your medication bottles and inhalers (or a list of all your medications/inhalers) with you to every visit. Potential barriers to meeting all of your care plan goals will continue to be addressed on an ongoing basis. documented as of this encounter Results Not on filedocumented in this encounter Visit Diagnoses Diagnosis Encounter to discuss colonoscopy results - Primary Other specified counseling Constipation, unspecified constipation type documented in this encounter Insurance Payer Benefit Plan / Subscriber ID Effective Dates Phone Address Type Group EXCELLUS MEDICARE EXCELLUS xxxxxxxxxxxx 2017-Present [facility] ADVANTAGE MEDICARE BLUE PPO ([phone]) documented as of this encounter
--- OUTSIDE RECORDS SUMMARY | 2019-03-11 09:53 | XMS REPORT | Continuity of Care Document ---
:1950 External Reference #:[id number] Author Name Keyshawn Rizo M.D. Address [address] [place] [address] Care Team Providers Name Role Phone Missy Mckeon [facility] Care Team Information Microbiology Technologist [phone] Leslie Khalil M.D. - Internal Care Team Information Microbiology Technologist [phone] Medicine Oscar Poole MD Care Team Information Microbiology Technologist [phone] Problems Active Problems Provider Date Morbid obesity Keyshawn Rizo M.D. Onset: 11/02/2014 Obstructive sleep apnea syndrome Keyshawn Rizo M.D. Onset: 11/02/2014 Dysfunction of eustachian tube Keyshawn Rizo M.D. Onset: 06/25/2012 Posterior rhinorrhea Keyshawn Rizo M.D. Onset: 06/25/2012 Chronic ethmoidal sinusitis Keyshawn Rizo M.D. Onset: 05/08/2012 Chronic maxillary sinusitis Keyshawn Rizo M.D. Onset: 03/28/2011 Social History Type Date Description Comments Sex Unknown Tobacco Use Start: Unknown Never Smoked Cigarettes Tobacco Use Start: Unknown has never smoked cigars Tobacco Use Start: Unknown has never smoked a pipe Smokeless Tobacco has never used smokeless tobacco ETOH Use does not drink alcohol Tobacco Use Start: Unknown Patient has never smoked Smoking Status Reviewed: 02/10/19 Patient has never smoked Allergies, Adverse Reactions, Alerts Description No Known Drug Allergies Medications Active Medications SIG Qnty Indications Ordering Provider Date Azelastine HCL 2 sprays in each 90ml R09.82 Keyshawn Almaraz 02/11/2019 (Nasal) nostril two Vinod Rizo 0.15% Solution times per day Ipratropium [place] 2 sprays in each 45units R09.82 Keyshawn Almaraz 12/10/2018 nostril 4 times Vinod Rizo 0.06% Solution a day as needed for rhinitis Amlodipine Besylate 1/2 tablet po qd Unknown 10mg Tablets Ibuprofen take 1 tablet by Unknown 800mg Tablets mouth every 8 hours Levothyroxine Sodium Take 1 Tab By Unknown Mouth Before 125mcg Tablets Breakfast. Nasalcrom as directed Self 5.2mg/Act Aerosol Saline Nasal [place] as directed Self 0.65% Solution Atorvastatin Calcium Zulema LEDESMA, Jordan R 40mg Tablets Oxybutynin Chloride Take 1/2 Tablet Unknown ER By Mouth Every 10mg Tablets ER 24HR Day Nadolol 1/2 tablet po qd Zulema LEDESMA, 20mg Tablets Jordan Frederick Levetiracetam One tab PO bid Unknown 500mg Tablets Losartan Potassium Take 1 Tablet By Unknown Mouth Every Day 100mg Tablets Fluticasone Leslie Khalil, Propionate Vinod 50mcg/Act Suspension Restasis instill 1 drop Unknown 0.05% Emulsion into both eyes twice a day Aspirin 81 1 A Day Unknown 81mg Tablets DR Medications Administered in Office Medication SIG Qnty Indications Ordering Provider Date Allergen Specifig IgE Markel Batista M.D. 02/19/1996 Injection Immunizations Description No Information Available Vital Signs Date Vital Result Comment 02/11/2019 9:35am Weight 179.00 lb Weight 81.194 kg Height 64 inches 5'4" Height in cm's 162.6 cm BMI (Body Mass Index) 30.7 kg/m2 12/10/2018 2:35pm Weight 179.00 lb Weight 81.194 kg Height 64 inches 5'4" Height in cm's 162.6 cm BMI (Body Mass Index) 30.7 kg/m2 Results Description No Information Available Procedures Date Code Description Status 02/11/2019 11840 Nasal Endoscopy, Diagnostic Completed 12/10/2018 05394 Tympanometry Completed 12/10/2018 25587 Comprehensive Audiogram Completed Medical Devices Description No Information Available Encounters Type Date Location Provider Dx Diagnosis Office Visit 12/10/2018 Hola,Jasbir Keyshawn Almaraz G45.8 Oth transient 2:30p 04/02/07 Vinod Rizo cerebral ischemic attacks and related synd A88.1 Epidemic vertigo R09.82 Postnasal drip Assessments Date Code Description Provider 02/11/2019 R09.82 Postnasal drip Keyshawn Rizo M.D. 12/10/2018 G45.8 Other transient cerebral ischemic Keyshawn Rizo M.D. attacks and related syndromes 12/10/2018 A88.1 Epidemic vertigo SOILA Cancino 12/10/2018 A88.1 Epidemic vertigo Keyshawn Rizo M.D. 12/10/2018 R09.82 Postnasal drip Keyshawn Rizo M.D. Plan of Treatment 02/11/2019 - Keyshawn Rizo M.D.R09.82 Postnasal dripNew Medication: Azelastine HCL (Nasal) 0.15 % - 2 sprays in each nostril two times per dayComments:The patient returns today for her PND. She had the nasal surgery years ago and there is not any evidence of active infection now. She has tried.Fluticasone, Ipratropium bromide nasal spray, Zyrtec and Claritin and none of these have helped. She was on Nasalcrom previously. She could restart those if she wants to. She could try some Mucinex as well. She has never tried Azelastine nasal spray and can try that. Functional Status Description No Information Available Mental Status Description No Information Available Referrals Description No Information Available
--- OUTSIDE RECORDS SUMMARY | 2019-03-11 09:53 | XMS REPORT | Continuity of Care Document ---
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 Allergies, Adverse Reactions, Alerts Active Allergies Reaction Severity Comments Date Macrodantin 10/25/2015 Medications Active Medications SIG Qnty Indications Ordering Date Provider Topiramate 2 po qhs Albert Orozco, 02/21/2019 25mg Tablets Slow-Mag 1 po bid Albert Oroczo, 07/30/2018 71.5-119mg MD Tablets Restasis 1 drop both eyes 180units H04.123 Albert Orozco, 02/09/2017 0.05% Emulsion twice daily. please dispense 180 vials, which is 3 month supply Amlodipine Besylate 1/2 tab po qd Unknown 10mg Tablets Synthroid 1 po qd except on Unknown 125mcg sundays Tablets Losartan Potassium 1 by mouth every Unknown day 100mg Tablets Miralax 1 tablespoon with Unknown 3350NF Powder large glass of water bid Nadolol sig 1/2 tablet qd McClintic, 20mg Tablets Jordan Frederick MD Atorvastatin Calcium 1 po qd McClintic, Jordan Frederick MD 40mg Tablets Levetiracetam Take 1 Tablet By Unknown 500mg Mouth Two Times Tablets Daily Amoxicillin 1 tab by mouth Unknown 500mg three times a day Tablets Vitamin D-3 daily 1 tab by Unknown 125mcg mouth (5000 Ut) Tablets Multi-Vitamins 1 by mouth every Unknown Tablets day Immunizations Description No Information Available Vital Signs Description No Information Available Results Description No Information Available Procedures Date Code Description Status 02/21/2019 81390 Eye Exam Est Patient Comprehensive Completed 12/17/2018 32704 Eye Exam Est Patient Comprehensive Completed Medical Devices Description No Information Available Encounters Description No Information Available Assessments Date Code Description Provider 02/21/2019 H04.123 Dry eye syndrome of bilateral lacrimal glands Albert Orozco MD 02/21/2019 H43.811 Vitreous degeneration, right eye Albert Orozco MD 02/21/2019 H25.813 Combined forms of age-related cataract, bilateral Albert Orozco MD 12/17/2018 H04.123 Dry eye syndrome of bilateral lacrimal glands Albert Orozco MD Plan of Treatment 02/21/2019 - Albert Orozco MDH04.123 Dry eye syndrome of bilateral lacrimal glandsComments:- the dryness appears to be worse left > right eye- (PINK TOP ) neomycin/polymyxin/dexamethasone 1drop both eyes 2 times daily for 1 weekcan use:- artificial tears both eyes- with the cpap, can contribute to dryness: ointment at night can help- over the consider ointment at night available over thecounter: - lacri-lube, systane, refresh pm- can continue the restasis- punctal plug well positioned right lower eyelid; punctum patent left eyelid- please call with ? or concernsFollow up:1 year examH43.811 Vitreous degeneration , right eyeComments:- no sign of retinal break or tear- review signs and symptoms of retinal detachment- review visual field self-assessment and need for evalH25.813 Combined forms of age-related cataract, bilateralComments:- not visually significant- provided updated rx for glasses if desired Functional Status Description No Information Available Mental Status Description No Information Available Referrals Description No Information Available
--- OUTSIDE RECORDS SUMMARY | 2019-03-11 09:54 | XMS REPORT | Summary of Care ---
:1950 Author Organization [facility] Address [address] [place] [place] [address] Care Team Providers Name Role Phone Elba Khalil Primary Care Provider Jordan Poole Unavailable Nayely Gascaricia Unavailable Mine Heath RN Unavailable Unavailable Reason for Visit Auth/Cert Status Reason Specialty Diagnoses / Procedures Referred By Contact Referred To Contact Encounter Details Date Type Department Care Team Description 01/16/2019 Hospital Encounter [facility] Abdon Bledsoe Procedure 1 Serafin Lenz MD [facility] [place] [address] [address] [phone] [place] [address] [phone] Allergies Active Allergy Reactions Severity Noted Date Comments Clarithromycin GI Reaction 01/16/2014 Dextran 70 In Saline Other 04/25/2010 Metoprolol Succinate-Polysorbate 80 Musculoskeletal 02/26/2013 Arms ache documented as of this encounter (statuses as of 01/17/2019) Medications Medication Sig Dispensed Refills Start Date [...] SolnIndications: SOB NEEDED (sob). (shortness of breath) oxybutynin (DITROPAN Take 1 Tab by 90 Tab 3 06/10/2018 Active XL) 10 MG Oral TABLET mouth DAILY. 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 S/P ADRIANO (total abdominal hysterectomy) 11/10/2010 Overview: [...] as of this encounter (statuses as of 01/17/2019) Resolved Problems Problem Noted Date Resolved Date Type 2 diabetes mellitus without complication, without 07/22/2018 09/03/2018 long-term current use of insulin Unspecified sinusitis (chronic) 02/03/2010 01/16/2014 Overview: Getting allergy shots 2 sinus surgeries- Dr Batista- [id number]/[id number] documented as of this encounter (statuses as of 01/17/2019) Immunizations Name Administration Dates Next Due Influenza (IM) Preservative Free 12/09/2015, 02/15/2015, 01/05/2014, 2013, 04/23/2012 Influenza Vaccine [...] or relatives? How often do you attend bahai or More than 4 times per year 03/20/2018 yarsanism services? Do you belong to any clubs or Yes 03/20/2018 organizations such as bahai groups, unions, fraternal or athletic groups, or [...] Sign Reading Time Taken Comments Blood Pressure 153/72 01/16/2019 3:10 PM EDT Pulse 49 01/16/2019 3:10 PM EDT Temperature 36.4 01/16/2019 3:10 PM EDT C (97.6 F) Respiratory Rate 22 01/16/2019 3:10 PM EDT Oxygen Saturation 99% 01/16/2019 3:10 PM EDT Inhaled Oxygen Concentration - - Weight 74.1 kg (163 lb 6.4 oz) 01/16/2019 1:43 PM EDT Height 162.6 cm (5' 4") 01/16/2019 1:43 PM EDT Body Mass Index 28.05 01/16/2019 1:43 PM EDT documented in this encounter Plan of Treatment Date Type Specialty Care Team Description 01/22/2019 Office Visit Family Practice Sam Estrada DO [address] [place] [address] 01/30/2019 Office Visit Gastroenterology Yvonne Juárez, [place] [address] [place] [address] [phone] 02/10/2019 Lab Internal Medicine 03/13/2019 Ancillary Procedure Radiology 03/13/2019 Office Visit Internal Medicine Elba Khalil MD [address] [place] [address] 06/25/2019 Office Visit Cardiology Jordan Poole MD [facility] [place] [address] Name Type Priority Associated Diagnoses Order Schedule COLONOSCOPY Diagnostic/Surgical Routine TOMORROW - GENERAL USE Procedures for 1 Occurrences starting 01/16/2019 until 01/16/2019 Health Maintenance Due Date Last Done Comments ZOSTER IMMUNIZATION SERIES 06/20/2013 04/25/2013 (2 of 3) INFLUENZA VACCINE (#1) 2018 02/20/2018, 12/09/2015, 02/15/2015, Additional history exists MAMMOGRAM (SCREENING) 03/12/2019 03/12/2018, 03/08/2017, 03/07/2016, Additional history exists DEPRESSION SCREENING 03/20/2019 03/20/2018 FALL RISK ASSESSMENT 03/20/2019 03/20/2018, 03/20/2018 MEDICARE ANNUAL WELLNESS 03/20/2019 03/20/2018, 03/07/2016, VISIT 03/04/2015 LIPID DISORDER SCREENING 12/14/2019 12/13/2018, 10/02/2018, 03/08/2018, Additional history exists DIABETES SCREENING 01/02/2020 01/01/2019, 10/02/2018, 10/02/2018, Additional history exists OSTEOPOROSIS SCREENING 08/20/2028 08/20/2018, 04/22/2012 COLONOSCOPY SCREENING 01/16/2029 01/16/2019, 01/16/2019, 06/18/2018, Additional history exists PNEUMOCOCCAL 65+YRS Completed 09/11/2017, 05/31/2016, 03/23/2015 HPV IMMUNIZATION SERIES Aged Out No longer eligible based on patient's age to complete this topic MENINGOCOCCAL VACCINE IMM Aged Out No longer eligible based on patient's age to complete this topic documented as of this encounter Goals Goal Patient Goal Associated Recent Patient-Stated? Author Type Problems Progress Blood Pressure Blood Pressure 153/72 No Padmaja, < 150/90 (01/16/2019 CARMELA Valenzuela 3:10 PM EDT) Note: This is an individualized treatment [...] 7.0 Diabetes 6.2 (10/02/2018 8:14 AM No Elba Khalil MD EDT) Note: This is an individualized treatment (diabetes control, HgbA1C) goal for Krupa Pendleton: Displayed above is your progress towards your HgbA1C goal. Your goal is shown above (on the left); your most recent HgbA1C is shown on the right. Note that lower numbers are better. Weight loss vs. 18 mo Lifestyle 35.6 (01/16/2019 1:43 PM No Bianca Giang FNP max (lbs) >= [...] loss goal. Keep immunizations current Lifestyle No Elba Khalil MD Note: This is an individualized [...] ongoing basis. documented as of this encounter Procedures Procedure Name Priority Date/Time Associated Comments Diagnosis TISSUE EXAM Routine 01/16/2019 2:14 Painless rectal Results for this PM EDT bleeding procedure are in the results section. COLONOSCOPY 01/16/2019 1:52 PM EDT COLONOSCOPY REPORT Routine 01/16/2019 1:05 Results for this PM EDT procedure are in the results section. PROCEDURE SAFETY 01/16/2019 12:00 CHECKLIST PM EDT SIGN PERMIT 01/16/2019 12:00 PM EDT documented in this encounter Results TISSUE EXAM (01/16/2019 2:14 PM EDT) Case Report Surgical Pathology Case: [id number] [facility] Authorizing Provider: Angela Bledsoe MD Collected: 01/16/2019 02:14 PM [facility] FACG Ordering Location: [facility] Received: 01/16/2019 03:25 PM Pathologist: Adalgisa Brady MD Specimen: transverse colon, polyp, cold snare polypectomy -multiple Pre-Op Diagnosis No Dx found. [facility] Post-Op Diagnosis No Dx found. [facility] FINAL DIAGNOSIS Colon, transverse, polyp, multiple; cold snare polypectomy: Wriggle Electronically signed - Fragments of tubular adenoma(s) [facility] by Adalgisa Brady MD on 01/17/2019 at 3:47 PM Microscopic Microscopic [facility] Description examination is [facility] performed. Gross Description 1. The specimen is received in formalin labeled, with the patient's name, MRN, and "transverse colon cold snare polypectomy -multiple". It consists of multiple palomo-white soft tissue fragments ranging i [facility] n size from 0.2 x 0.2 x 0.1 cm to 0.7 x 0.3 x 0.1 cm. The specimen is submitted entirely in cassette 1A. [facility] Gross description is reviewed before signout by Adalgisa Brady MD Disclaimer Gross description is performed at the [facility], [address] [place] [address]. [facility] All technical components are performed at the [facility], [address] [place] [address]. Specimen Tissue - transverse colon, polyp Performing Organization Address City/State/Zipcode Phone Number [facility] [address] [facility] [place] [address] [phone] COLONOSCOPY REPORT (01/16/2019 1:05 PM EDT) GI Procedure [facility] [employer]ATION __ Patient Name: Krupa Pendleton Procedure Date: 01/16/2019 1:05 PM Date of : 1950 Admit Type: Outpatient Age: 68 Room: 17 Gender: Female Note Status: Finalized Attending MD: MD NICKIE SONG Instrument Name: [id number] CF HQ [id number] __ Procedure: Colonoscopy Indications: Rectal bleeding, Constipation Providers: MD NICKIE RIOS, Yadira Cote (Nurse), Michelle Brannon, Adult Nurse Practitioner (Adult Nurse Practitioner) Referring MD: ELBA KHALIL MD (Referring MD) Medicines: Monitored Anesthesia Care Complications: No immediate complications. __ Procedure: The patient's current medications and allergies were reviewed and recorded in the nurses notes. The patient was made aware of the risk of the procedure which can include: bleeding, infection, perforation, an adverse reaction to sedation, and a risk of missed lesions, among others. The patient appeared to understand. An opportunity for questions was provided, and an informed consent form was signed. The scope was passed under direct vision. Throughout the procedure, the patient's blood pressure, pulse EKG, and oxygen saturations were monitored continuously. The Colonoscope was introduced through the anus and advanced to the cecum, identified by appendiceal orifice and ileocecal valve. The colonoscopy was performed with difficulty due to restricted mobility of the colon, a redundant colon, significant looping and a tortuous colon. Successful completion of the procedure was aided by using manual pressure. The patient tolerated the procedure well. The quality of the bowel preparation was good. Findings: Multiple sessile polyps were found in the transverse colon. The polyps were 3 to 4 mm in size. These polyps were removed with a cold snare. Resection and retrieval were complete. The ileocecal valve was mildly lipomatous. A few small-mouthed diverticula were found in the sigmoid colon and descending colon. External and internal hemorrhoids were found during retroflexion. The hemorrhoids were Grade II (internal hemorrhoids that prolapse but reduce spontaneously). The exam was otherwise normal throughout the examined colon. Impression: - Multiple 3 to 4 mm polyps in the transverse colon, removed with a cold snare. Resected and retrieved. - Lipomatous ileocecal valve. - Diverticulosis in the sigmoid colon and in the descending colon. - External and internal hemorrhoids. Recommendation: - - Discharge patient to home. - High fiber diet indefinitely. - Continue present medications. - Await pathology results. - Repeat colonoscopy (date not yet determined) for surveillance based on pathology results. - Follow-up sooner prn change in status, symptom changes or development, change in risk factors, etc. -Polyps can be missed. - Return to referring physician as previously scheduled. - Patient has a contact number available for emergencies. The signs and symptoms of potential delayed complications were discussed with the patient. Return to normal activities tomorrow. Written discharge instructions were provided to the patient - If you have a medical emergency, call 911 immediately. Procedure Code(s): --- Professional --- 56396, Colonoscopy, flexible; with removal of tumor(s), polyp(s), or other lesion(s) by snare technique Diagnosis Code(s): --- Professional --- D12.3, Benign neoplasm of transverse colon (hepatic flexure or splenic flexure) K63.89, Other specified diseases of intestine K64.1, Second degree hemorrhoids K62.5, Hemorrhage of anus and rectum K59.00, Constipation, unspecified K57.30, Diverticulosis of large intestine without perforation or abscess without bleeding CPT copyright 2017 [employer]. All rights reserved. The codes documented in this report are preliminary and upon social services technician review may be revised to meet current compliance requirements. ANGELA BLEDSOE MD [facility] 01/16/2019 2:34:55 PM This report has been signed electronically. Number of Addenda: 0 Note Initiated On: 01/16/2019 1:05 PM CC Letter to: ELBA KHALIL MD (CC) Specimen Performing Organization Address City/State/Zipcode Phone Number [employer] documented in this encounter Visit Diagnoses Diagnosis Painless rectal bleeding documented in this encounter Administered Medications Medication Order MAR Action Action Date Dose Rate Site FentaNYL (PF) (SUBLIMAZE) injection (PF) 25 mcg 25 mcg, Intravenous Push, PRU Q5MIN PRN, Starting Radha 01/16/19 at 1435, Until Radha 01/16/19 at 1749, Mild Pain (pain scale 1-3) - IV - 1st line - if immediate effect required or patient cannot tolerate PO, 4 Recovery FentaNYL (PF) (SUBLIMAZE) injection (PF) 50 mcg 50 mcg, Intravenous Push, PRU Q5MIN PRN, Starting Radha 01/16/19 at 1435, Until Radha 01/16/19 at 1749, Moderate Pain (pain scale 4-6) - IV - 1st line - if immediate effect required or patient cannot tolerate PO, Severe Pain (pain scale 7-10) - IV - 1st line - if immediate effect required or patient cannot tolerate PO, 4 Recovery haloperidol (HALDOL) injection 0.65 mg 0.65 mg, Intravenous Push, PRU X1 PRN, 1 dose, Starting Radha 01/16/19 at 1435, Until Radha 01/16/19 at 1749, Nausea/Vomiting - IV - 3rd line - if immediate effect required or patient cannot tolerate PO and no relief 1 hour after administration of 2nd line agent, 4 Recovery HYDROmorphone (DILAUDID) syringe 0.3 mg 0.3 mg, Intravenous Push, PRU Q5MIN PRN, Starting Radha 01/16/19 at 1435, Until Radha 01/16/19 at 1749, Mild Pain (pain scale 1-3) IV - 2nd line - if immediate effect required or cannot tolerate PO & still had mild pain 4 hrs after admin of 1st line agent or patient did not tolerate 1st line agent, 4 Recovery HYDROmorphone (DILAUDID) syringe 0.5 mg 0.5 mg, Intravenous Push, PRU Q5MIN PRN, 2 doses, Starting Radha 01/16/19 at 1435 , Until Radha 01/16/19 at 1749, Moderate Pain (pain scale 4-6)IV 2nd line- if immediate effect required or cannot tolerate PO & still had moderate pain 2 hrs after admin of 1st line agent or did not tolerate 1st line agent, Severe Pain (pain scale 7-10)IV 2nd line - if immediate effect required or cannot tolerate PO & no still has severe pain 1 hr after admin of 1st line agent or did not tolerate 1st line agent, 4 Recovery midazolam (VERSED) injection 0.5 mg 0.5 mg, Intravenous Push, PRU Q5MIN PRN, Starting Radha 01/16/19 at 1435, Until Radha 01/16/19 at 1749, Anxiety - IV - 1st line - if immediate effect required or patient cannot tolerate PO, 4 Recovery normal saline IV New Bag 01/16/2019 2:22 PM EDT Intravenous, at 25 mL/hr, CONTINUOUS, Starting Sun01/17/19 at 0600, Until Sun01/16/19 at 1749 New Bag 01/16/2019 1:51 PM EDT normal saline IV Intravenous, at 50 mL/hr, PRU CONTINUOUS, Starting Radha 01/16/19 at 1440, Until Radha 01/16/19 at 1749, 4 Recovery ondansetron (ZOFRAN) injection 4 mg 4 mg, Intravenous Push, PRU X1 PRN, 1 dose, Starting Radha 01/16/19 at 1435, Until Radha 01/16/19 at 1749, Nausea/Vomiting - IV - 1st line - If immediate effect required or patient cannot tolerate PO, 4 Recovery prochlorperazine (COMPAZINE) injection 2.5 mg 2.5 mg, Intravenous Push, PRU PRN, 2 doses, Starting Radha 01/16/19 at 1435, Until Radha 01/16/19 at 1749, Nausea/Vomiting - IV - 2nd line - if immediate effect required or patient cannot tolerate PO and no relief 1 hours after administration of 1st line agent, 4 Recovery documented in this encounter Insurance Payer Benefit Plan / Subscriber ID Effective Dates Phone Address Type Group [employer] EX[employer]LL xxxxxxxxxxxx 2017-Present [employer] BLUE PPO [phone]) documented as of this encounter
--- OUTSIDE RECORDS SUMMARY | 2019-03-11 09:54 | XMS REPORT | Summary of Care ---
:1950 Author Organization [facility] Address [address] [facility] [place] [address] Care Team Providers Name Role Phone Simran Leslie Primary Care Provider Jordan Poole Unavailable Melly Gasca Unavailable Mine Heath RN Unavailable Unavailable Reason for Visit Reason Comments Follow Up here for 3 week follow up; has had flu vaccine over weekend; had focal seizure last night for approx 15 min; colonoscopy last week in [place] 90-110 Encounter Details Date Type Department Care Team Description 01/22/2019 Office Visit [facility] Sam Estrada, Dry mouth (Primary Dx); Practice [address] Urge incontinence; [address] [place] [address] History of dizziness; [place] [address] Bradycardia, sinus; [phone] Hypothyroidism, unspecified type Allergies Active Allergy Reactions Severity Noted Date Comments Clarithromycin GI Reaction 01/16/2014 Dextran 70 In Saline Other 04/25/2010 Metoprolol Succinate-Polysorbate 80 Musculoskeletal 02/26/2013 Arms ache documented as of this encounter (statuses as of 01/22/2019) Medications Medication Sig Dispensed Refills Start Date End Date Status cholecalciferol Take 400 Units 0 Active (VITAMIN D) 400 UNIT by mouth DAILY. Oral TabIndications: Diverticulitis Multiple Take by mouth. 0 Active Vitamins-Minerals (MULTIVITAL PO) ibuprofen (MOTRIN) Take 1 Tab by 90 Tab 11 10/12/2017 Active 800 MG Oral Tab mouth EVERY SIX HOURS NEEDED for Pain. albuterol HFA Take 2 Puffs by 18 g 5 04/23/2018 Active (VENTOLIN HFA) 108 inhalation (90 Base) MCG/ACT EVERY FOUR Inhalation Aero HOURS NEEDED SolnIndications: SOB (sob). (shortness of breath) Bisacodyl (DULCOLAX Place per 0 Active RE) rectum NEEDED. polyethylene glycol Take 17 g by 1020 g 0 06/12/2018 Active (MIRALAX) Oral mouth TWICE Powder DAILY. amLodipine (NORVASC) TAKE 1 TABLET 90 Tab 3 07/02/2018 Active 10 MG Oral BY MOUTH EVERY TabIndications: DAY Essential hypertension Losartan Potassium TAKE 1 TABLET 90 Tab 3 08/19/2018 Active 100 MG Oral Tab BY MOUTH EVERY DAY Magnesium Cl-Calcium Take by mouth. 0 Active Carbonate (SLOW MAGNESIUM/CALCIUM PO) Lancets Does not 1 Appl by Does 100 Each 3 09/05/2018 Active apply not apply MiscIndications: route. Elevated blood sugar Brand:Insurance preferred Dx:E11.9 non-Insulin dependent Test Blood Glucose 2 time(s) A DAY Lancet Devices 1 Each by Does 100 Each 0 09/05/2018 Active (AUTOLET PLUS) Does not apply route not apply TWICE DAILY. MiscIndications: Elevated blood sugar Glucose Blood (COOL 1 Each by In 100 Each 3 09/11/2018 Active BLOOD GLUCOSE TEST Vitro route STRIPS) In Vitro TWICE DAILY. StripIndications: Dx. E11.9, no Elevated blood sugar insul. Brand ins preferred. Blood Glucose 1 Device by 1 Device 0 09/11/2018 Active Monitor Software Does not apply Does not apply route DeviceIndications: DIRECTED. Elevated blood sugar contolled non-insulin dependent diabetes. Brand: Insurance preferred levothyroxine take 1 tablet 90 Tab 3 11/18/2018 Active (SYNTHROID) 125 MCG by mouth once Oral Tab daily BEFORE BREAKFAST fluticasone USE TWO SPRAYS 3 Bottle 5 11/25/2018 Active (FLONASE) 50 MCG/ACT IN EACH NOSTRIL Nasal Suspension EVERY DAY Aspirin 81 MG Oral Take 81 mg by 0 Active Tab mouth DAILY. levetiracetam Take 500 mg by 0 Active (KEPPRA) 500 MG Oral mouth TWICE Tab DAILY. nadolol (CORGARD) 20 Take 1 Tab by 135 Tab 3 12/13/2018 Active MG Oral mouth DAILY. TabIndications: Extra 20 mg as Ventricular needed arrhythmia atorvastatin Take 1 Tab by 90 Tab 3 12/13/2018 Active (LIPITOR) 40 MG Oral mouth DAILY. Tab topiramate (TOPAMAX) take 1 tablet 0 12/19/2018 Active 25 MG Oral Tab by mouth every evening for 1 week then take 2 tablets every evening oxybutynin (DITROPAN Take 1 Tab by 90 Tab 1 01/22/2019 Active XL) 5 MG Oral TABLET mouth DAILY. SR 24 HRIndications: Urge incontinence oxybutynin (DITROPAN Take 1 Tab by 90 Tab 3 06/10/2018 Discontinued XL) 10 MG Oral mouth DAILY. 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 S/P ADRIANO (total abdominal hysterectomy) 11/10/2010 Overview: [...] Dr Lainez; 2005 ekg 07/10 Cath ~ 2000- [place]- Told normal documented as of this encounter (statuses as of 01/22/2019) Resolved Problems Problem Noted Date Resolved Date Type 2 diabetes mellitus without complication, without 07/22/2018 09/03/2018 long-term current use of insulin Unspecified sinusitis (chronic) 02/03/2010 01/16/2014 Overview: Getting allergy shots 2 sinus surgeries- Dr Batista- [id number] documented as of this encounter (statuses as of 01/22/2019) Immunizations Name Administration Dates Next Due Influenza [...] or relatives? How often do you attend congregation or More than 4 times per year 03/20/2018 moravian services? Do you belong to any clubs or Yes 03/20/2018 organizations such as congregation groups, unions, fraternal or athletic groups, or [...] Sign Reading Time Taken Comments Blood Pressure 122/58 01/22/2019 9:54 AM EDT Pulse 51 01/22/2019 9:54 AM EDT Temperature - - Respiratory Rate - - Oxygen Saturation 98% 01/22/2019 9:54 AM EDT Inhaled Oxygen Concentration - - Weight 74.1 kg (163 lb 6.4 oz) 01/22/2019 9:54 AM EDT Height 162.6 cm (5' 4") 01/22/2019 9:54 AM EDT Body Mass Index 28.05 01/22/2019 9:54 AM EDT documented in this encounter Progress Notes Sam Estrada, DO - 01/22/2019 10:00 AM EDT PATIENT: Krupa Pendleton : 1950 DATE OF SERVICE: 01/22/2019 CHIEF COMPLAINT: Chief Complaint Patient presents with Follow Up here for 3 week follow up; has had flu vaccine over weekend; had focal seizure last night for approx 15 min; colonoscopy last week in [place]; [place] 90-110 Subjective HISTORY OF PRESENT ILLNESS: Krupa Pendleton is a 68-y.o. female. HPI Follow up Dizziness: Resolved with lowering of norvasc and atenolol to 5 mg a day and 10 mg a day respectively Still a bradycardia but into 50's now Home bp and today's bp normal No chest pain No headaches Hypothyroidism: Lab Results Component Value Date TSH 0.38 (L) 01/01/2019 Told her to skip synthroid once a week. That change was made 3 weeks ago so too early to re check tsh today New issue: Dry mouth On ditropan 10 mg XL for urinary urge incontinence. It does work Seizure: following with neurology Past Medical History: Diagnosis Date Chronic back pain herniated L4-5, S1 - WC case Diverticulitis large intestine Fatty liver 02/10/2010 GERD (gastroesophageal reflux disease) Lipidoses Other malignant neoplasm without specification of site Postmenopausal S/P colonoscopy 05/02/12 Dr Vergara, [facility], next recommended 10 years Unspecified disorder of thyroid Unspecified essential hypertension Family History Problem Relation Age of Onset Diabetes Maternal Aunt Heart Maternal Aunt Breast Cancer Maternal Aunt 43 Heart Brother High Cholesterol Brother Hypertension Brother Alcohol/Drug Brother ETOH Diabetes Brother Psychiatry Brother Bipolar Hypertension Brother High Cholesterol Brother Alcohol/Drug Brother ETOH Diabetes Brother Heart Maternal Uncle Diabetes Maternal Aunt Alcohol/Drug Daughter Recovering Heart Mother Other Diagnosed Disorder Mother Subarachnoid hemorrhage Other Diagnosed Disorder Father Post MVA Cancer Brother Bowel with mets Other Diagnosed Disorder Brother MVA Hypertension Son High Cholesterol Son Alcohol/Drug Son Current Outpatient Medications Medication Sig albuterol HFA [...] Xl [Metoprolol Succinate-Polysorbate 80] Musculoskeletal Arms ache Social History Socioeconomic History Marital status: Spouse name: Not on file Number of children: 2 Years of education: Not on file Highest education level: Not on file Occupational History Not on file Social Needs Financial resource strain: Not hard at all Food insecurity: Worry: Never true Inability: Never true Transportation needs: Medical: No Non-medical: No Tobacco Use Smoking status: Never Smoker Smokeless tobacco: Never Used Substance and Sexual Activity Alcohol use: No Alcohol/week: 0.0 standard drinks Drug use: No Sexual activity: Yes Partners: Male Lifestyle Physical activity: Days per week: 3 days Minutes per session: 60 min Stress: Not at all Relationships Social connections: Talks on phone: More than three times a week Gets together: Three times a week Attends moravian service: More than 4 times per year Active member of club or organization: Yes Attends meetings of clubs or organizations: More than 4 times per year Relationship status: Intimate partner violence: Fear of current or ex partner: No Emotionally abused: No Physically abused: No Forced sexual activity: No Other Topics Concern Back Care Not Asked Bike Helmet Not Asked Blood Transfusions Not Asked Caffeine Concern Not Asked Exercise Not Asked Hobby Hazards Not Asked International Travel Not Asked Service Not Asked Occupational Exposure Not Asked Seat Belt Not Asked Self-Exams Not Asked Sleep Concern Not Asked Special Diet Not Asked Stress Concern Not Asked Weight Concern Not Asked Social History Narrative Lives at [place] with , cat in home. 2 adult children; local Nursed bro that 2013 REVIEW OF SYSTEMS: Review of Systems Constitutional: Negative for fever. Cardiovascular: Negative for chest pain. Gastrointestinal: Negative for abdominal pain. Objective PHYSICAL EXAM: VITALS: BP 122/58 (BP Location: Left arm, Patient Position: Sitting) | Pulse 51 | Ht 5' 4" (1.626m) | Wt 163 lb 6.4 oz (74.1 kg) | SpO2 98% | BMI 28.05 kg/m Body mass index is 28.05 kg/m. Physical Exam HENT: Head: Normocephalic and atraumatic. Mouth/Throat: Mouth: Mucous membranes are moist. Pharynx: Oropharynx is clear. Cardiovascular: Rate and Rhythm: Normal rate and regular rhythm. Pulmonary: Effort: Pulmonary effort is normal. Breath sounds: Normal breath sounds. Neurological: Mental Status: She is alert. ASSESSMENT / IMPRESSION: ICD-9-CM ICD-10-CM 1. Dry mouth 527.7 R68.2 2. Urge incontinence 788.31 N39.41 oxybutynin (DITROPAN XL) 5 MG Oral TABLET SR 24 HR 3. History of dizziness V13.89 Z87.898 4. Bradycardia, sinus 427.89 R00.1 5. Hypothyroidism, unspecified type 244.9 E03.9 Plan Dry mouth likely from ditropan. Reduce dose to 5 mg XL. Has follow up with PCP in 1-2 months to reassess Dizziness: resolved. Stay at norvasc 5 mg and atenolol 10 mg Hypothyroidism: pcp can check it at next visit Author: Sam Estrada DO 01/22/2019 13:32 documented in this encounter Plan of Treatment Date Type Specialty Care Team Description 01/30/2019 Office Visit Gastroenterology Yvonne Juárez, FOUNDRY MANAGER [address] [place] [address] [phone] 02/10/2019 Lab Internal Medicine 03/13/2019 Ancillary Procedure Radiology 03/13/2019 Office Visit Internal Medicine Leslie Khalil MD [address] [place] [id number] 06/25/2019 Office Visit Cardiology Jordan Poole MD [address] [place] [address] Health Maintenance Due Date Last Done Comments [...] Type Problems Progress Blood Pressure Blood Pressure 122/58 No Padmaja, < 150/90 (01/22/2019 CARMELA Valenzuela 9:54 AM EDT) Note: This is an individualized [...] Weight loss vs. 18 mo Lifestyle 35.6 (01/22/2019 9:54 AM Bianca Bolaños FNP max (lbs) >= 10 EDT) Note: [...] filedocumented in this encounter Visit Diagnoses Diagnosis Dry mouth - Primary Disturbance of salivary secretion Urge incontinence History of dizziness Personal history of other specified diseases Bradycardia, sinus Other specified cardiac dysrhythmias Hypothyroidism, unspecified type documented in this encounter Insurance Payer Benefit Plan / Subscriber ID Effective Dates Phone Address Type Group [employer] EX[employer] xxxxxxxxxxxx 2017-Present [employer] MEDIC[employer] BLUE PPO [phone]) Guarantor Name Account Type Relation to Date of Phone Billing Address Patient Krupa Pendleton Personal/Family 1950 [facility] [place] [address] documented as of this encounter
[2019-03-11] MEDS ORDERED: Meclizine TAB* 12.5 MG PO ONE (09:57)
[2019-03-11 10:12] LABS: ABS Eosinophils 0.1 10^3/ul (0-0.6); ABS Lymphocytes 1.8 10^3/ul (1.0-4.8); ABS Monocytes 0.3 10^3/ul (0-0.8); ABS Neutrophils 2.2 10^3/ul (1.5-7.7); Eosinophil % 2.1 %; Hematocrit 40 % (35-47); Hemoglobin 13.5 g/dL (12.0-16.0); Mean Corpuscular HGB Conc 34 g/dL (31-36); Mean Corpuscular Hemoglobin 30 pg (27-31); Mean Corpuscular Volume 89 fL (80-97); Mean Platelet Volume 8.5 fL (7.4-10.4); Nucleated Red Blood Cells % 0.1; Platelet Count 217 10^3/uL (150-450); Red Blood Count 4.47 10^6 /uL (3.70-4.87); Red Cell Distribution Width 13 % (10-15); White Blood Count 4.4 10^3/uL (3.5-10.8)
[2019-03-11 10:21] LABS: INR 0.91 (0.82-1.09)
[2019-03-11 10:32] LABS: Albumin 4.2 g/dL (3.2-5.2); Albumin/Globulin Ratio 2.1 (1-3); BUN/Creatinine Ratio 15.2 (8-20); Calcium 9.5 mg/dL (8.6-10.3); EGFR African American 87.3 (>60); EGFR Non-African American 72.2 (>60); Potassium 3.7 mmol/L (3.5-5.0); Total Bilirubin 0.4 mg/dL (0.2-1.0); Total Protein 6.2 g/dL (6.4-8.9)
[2019-03-11] MEDS ORDERED: Iodixanol* (CONTRAST) 320 MG/ML 100 ML SDV IV ONE (10:45)
[2019-03-11] MEDS ORDERED: Acetaminophen TAB* 325 MG PO ONE (11:04)
[2019-03-11] MEDS ORDERED: NS 0.9% 1000 ML** 1,000 ML IV ONE (11:29)
[2019-03-11] MEDS ORDERED: diPHENhydraMINE IV* 50 MG/ML 1 ml VIAL (BENADRYL) IV ONE (11:30)
[2019-03-11] MEDS ORDERED: PROCHLORPERAZINE INJ 5 MG/ML 2 ML VIAL IV ONE (11:31)
[2019-03-11 12:57] VITALS: BP 113/70
== END 2019-03-11 12:58 | disposition home or self-care (01) ==
LOC: ED 09:13
DX: R42 Dizziness and giddiness (principal); H93.19 Tinnitus, unspecified ear; R51 Headache; I10 Essential (primary) hypertension; R53.1 Weakness; Z79.899 Other long term (current) drug therapy; E78.00 Pure hypercholesterolemia, unspecified; Z85.850 Personal history of malignant neoplasm of thyroid
CPT/HCPCS: 36415; 70496; 70498; 80053; 84484; 85025; 85610; 93005; 96361; 96374; 96375; 99282; A9270-GY; J0780; J1200; Q9967

== ENCOUNTER 2019-05-22 10:36 | Observation (INO) | payer MEDICARE ==
--- NOTE | 2019-05-22 10:56 | ED ---
HPI Chest Pain - HPI Summary HPI Summary: Patient is a 69 y/o F presenting to the ED via EMS for a chief complaint of intermittent chest pain that radiates to the left anterior chest and back that began at 07:00 on 05/22/19. Patient describes the chest pain as a sharp sensation. She complains of nausea. The chest pain has since resolved. Patient denies diaphoresis. On route to [facility] on EMS, patient was given aspirin and NTG with relief. She also took 3 doses of 324 aspirin at home. She called her draw bench operator helper who recommended the patient be seen at [facility] if her symptoms did not improve. PMHx is significant for HTN, HLD, thyroid cancer, and palpitations , but PA is denied. She also states that while traveling in [place] in 2013, she is suspected to have had 4 TIAs by a neurologist. PSHx is significant for cholecystectomy. FMHx is significant for cardiac disease. Patient takes baby aspirin daily. On medical record review, patient was seen by Dr. Castrejon in September 2017 for palpitations and PVCs. At that time, she was placed on a low dose metoprolol and had a nuclear medicine test that was low risk. She was also seen at [facility] in March 2019 for dizziness and vertigo. - History of Current Complaint Time Seen by Provider: 05/22/19 10:39 Hx Obtained From: Patient Onset/Duration: Atraumatic, Resolved Timing: Intermittent Initial Severity: Mild Current Severity: None Pain Intensity: 0 Pain Scale Used: 0-10 Numeric Chest Pain Radiates: Yes Chest Pain Radiates To:: Back, Other - Left anterior chest Character: Sharp/Stabbing Aggravating Factor(s): Nothing Alleviating Factor(s): NTG 123, OTC Meds - Aspirin Associated Signs and Symptoms: Positive: Chest Pain, Nausea. Negative: Diaphoresis - Additional Pertinent History Primary Care Physician: [id number] - Allergy/Home Medications Allergies/Adverse Reactions: Allergies Allergy/AdvReac Type Severity Reaction Status Date / Time metoprolol Allergy Muscle Ache Verified 05/22/19 10:53 nitrofurantoin Allergy Rash Verified 05/22/19 10:53 amoxicillin [From Augmentin] AdvReac GI Upset Verified 05/22/19 10:53 clavulanic acid AdvReac GI Upset Verified 05/22/19 10:53 [From Augmentin] Home Medications: Home Medications Levothyroxine TAB* [Synthroid 125 MCG TAB*] 125 mcg PO DAILY 03/23/14 [History Confirmed 05/22/19] Atorvastatin* [Lipitor 20 MG*] 40 mg PO DAILY 02/12/16 [History Confirmed ] amLODIPine TAB* [Norvasc 5 mg TAB*] 10 mg PO DAILY 02/12/16 [History Confirmed 05/22/19] Aspirin EC TAB* [Ecotrin EC Low Dose 81 MG*] 81 mg PO DAILY 10/18/17 [History Confirmed 05/22/19] Magnesium Chloride EC TAB* [Slow Mag EC TAB*] 128 mg PO DAILY 10/18/17 [History Confirmed 05/22/19] Cholecalciferol CAP/TAB(NF) [Vitamin D3 CAP/TAB (NF)] 5,000 unit PO DAILY [History Confirmed 05/22/19] Losartan Potassium 100 mg PO DAILY 03/11/19 [History Confirmed 05/22/19] Nadolol (NF) 20 mg PO DAILY 03/11/19 [History Confirmed 05/22/19] Topiramate TAB(*) [Topamax 25 MG tab] 50 mg PO BEDTIME 03/11/19 [History Confirmed 05/22/19] levETIRAcetam TAB* [Keppra TAB*] 500 mg PO BID 03/11/19 [History Confirmed 05/22] PMH/Surg Hx/FS Hx/Imm Hx Previously Healthy: Yes Endocrine/Hematology History: Reports: Hx Thyroid Disease - thyroid cancer 2009 , Other Endocrine/Hematological Disorders - pre dmTYPE2 Denies: Hx Diabetes Cardiovascular History: Reports: Hx Angina - pressure, Hx Hypercholesterolemia, Hx Hypertension - on meds, Other Cardiovascular Problems/Disorders - high cholesterol, palpitations Denies: Hx Coronary Artery Disease, Hx Myocardial Infarction, Hx Pacemaker/ ICD, Hx Valvular Heart Disease Respiratory History: Denies: Other Respiratory Problems/Disorders GI History: Denies: Other GI Disorders History: Denies: Hx Dialysis, Hx Renal Disease Musculoskeletal History: Denies: Other Musculoskeletal History Sensory History: Reports: Hx Contacts or Glasses Denies: Hx Legally Blind, Hx Deafness, Hx Hearing Aid Opthamlomology History: Reports: Hx Contacts or Glasses Denies: Hx Legally Blind EENT History: Denies: Hx Deafness Neurological History: Denies: Other Neuro Impairments/Disorders Psychiatric History: Denies: Hx Panic Disorder - Cancer History Cancer Type, Location and Year: thyroid CA - Surgical History Surgical History: Yes Surgery Procedure, Year, and Place: cholecystectomy;, 1973. hysterectomy;1977. sinus surgery X2;. fx thumb;40 yrs ago. thyroidectomy, 2010 Hx Anesthesia Reactions: Yes - 2009, went to [facility] from anesthesia Infectious Disease History: No Infectious Disease History: Denies: Hx Clostridium Difficile, Hx Hepatitis, Hx Human Immunodeficiency Virus (HIV), Hx of Known/Suspected MRSA, Hx Shingles, Hx Tuberculosis, Traveled Outside the [place] in Last 30 Days - Family History Known Family History: Positive: Cardiac Disease - all family members before 50 - Social History Occupation: Retired Lives: With Family Alcohol Use: Rare Alcohol Amount: 1 per week Hx Substance Use: No Substance Use Type: Reports: None Hx Tobacco Use: No Smoking Status (MU): Never Smoked Tobacco Review of Systems Negative: Skin Diaphoresis Positive: Chest Pain Positive: Nausea Positive: Myalgia - Back that radiates from the chest All Other Systems Reviewed And Are Negative: Yes Physical Exam - Summary Physical Exam Summary: Constitutional: Well-developed, Well-nourished, Alert. (-) Distressed Skin: Warm, Dry HENT: Normocephalic; Atraumatic Eyes: Conjunctiva normal Neck: Musculoskeletal ROM normal neck. (-) JVD, (-) Stridor, (-) Nuchal rigidity Cardio: Rhythm regular, Bradycardia, Heart sounds normal; Intact distal pulses; Radial pulses are 2+ and symmetric. (-) Murmur Pulmonary/Chest wall: Effort normal. (-) Respiratory distress, (-) Wheezes, (-) Rales Abd: Soft, (-) tenderness, (-) Distension, (-) Guarding, (-) Rebound Musculoskeletal: (-) Edema Lymph: (-) Cervical adenopathy Neuro: Alert, Oriented x3 Psych: Mood and affect Normal Triage Information Reviewed: Yes Vital Signs On Initial Exam: Initial Vitals Temp Pulse Resp BP Pulse Ox 98.3 F 55 17 139/87 99 05/22/19 10:45 05/22/19 10:45 05/22/19 10:45 05/22/19 10:45 05/22/19 10:45 Vital Signs Reviewed: Yes Procedures - Sedation Patient Received Moderate/Deep Sedation with Procedure: No Diagnostics - Vital Signs Vital Signs Temp Pulse Resp BP Pulse Ox 05/22/19 10:45 98.3 F 55 17 139/87 99 - Laboratory Result Diagrams: 05/22/19 11:16 05/22/19 11:16 Lab Statement: Any lab studies that have been ordered have been reviewed, and results considered in the medical decision making process. - Radiology Chest X-ray Radiology Interpretation Completed By: Radiologist Summary of Radiographic Findings: Chest X-ray IMPRESSION: 1. No acute cardiopulmonary process by radiograph. 2. Postoperative changes in the lower neck. Reviewed by Dr. Horan. - EKG 10:50 Cardiac Rate: Bradycardia - 54 BPM EKG Rhythm: Sinus Bradycardia ST Segment: Normal Ectopy: None Summary of EKG Findings: An EKG at 10:50 reveals sinus bradycardia with 54 BPM, T wave inversion in lead III, nml axis, nml intervals. No STEMI. No acute changes. ED physician has reviewed and interpreted this EKG. Chest Pain Course/Dx - Course Course Of Treatment: 69 y/o F w hx HTN, HLD p/w CP. -VSS NAD. Chest Pain DDX: The patient is well appearing, with stable vitals. Given the patient's clinical presentation, highest on differential is ACS. Heart score 5. Moderate risk. Trop negative x1. Although less likely, differential also includes the following: --Pneumothorax: Equal breath sounds, story inconsistent since gradual onset of symptoms. CXR shows no evidence of pneumothorax. Unlikely. -- Cardiac tamponade: The history and physical are not concerning for tamponade. No Pulsus Paradoxus, no tachypnea. Unlikely. --Mediastinitis or esophageal rupture: The history is not consistent, as the patient has had no recent history of significant wretching, instrumentation, or mediastinal surgeries. Unlikely. --Aortic dissection: The patient does not describe the classical tearing chest pain radiating into the back, and the CXR does not show mediastinal widening or other signs of aortic dissection. Unlikely. --PE: Vitals wnl (not hypoxic, tachycardic or tachypneic). Wells low risk, d dimer elevated, CTA without PE. - Diagnoses Provider Diagnoses: Chest pain - Provider Notifications Discussed Care Of Patient With: Cheikh Colmenares - At 12:42, Dr. Colmenares reviewed the patients case and will admit the patient to [facility] with a diagnosis of chest pain. He would like a chest CT ordered. Time Discussed With Above Provider: 12:42 Instructed by Provider To: Admit As Inpatient Discharge ED - Sign-Out/Discharge Documenting (check all that apply): Patient Departure - Admit - Discharge Plan Condition: Stable Disposition: ADMITTED TO [facility] Referrals: Leslie Khalil MD [Primary Care Provider] - - Billing Disposition and Condition Condition: STABLE Disposition: Admitted to [facility] - Attestation Statements Document Initiated by Bajlit: Yes Documenting Scribe: Rozina Boo Provider For Whom Baljit is Documenting (Include Credential): Zachary Horan MD Scribe Attestation: Rozina Russell, scribed for Zachary Horan MD on 05/22/19 at 1407. Scribe Documentation Reviewed: Yes Provider Attestation: The documentation as recorded by the Rozina pack accurately reflects the service I personally performed and the decisions made by Zachary choudhury MD Status of Scribe Document: Viewed
[2019-05-22 11:25] LABS: ABS Eosinophils 0.1 10^3/ul (0-0.6); ABS Lymphocytes 1.6 10^3/ul (1.0-4.8); ABS Monocytes 0.4 10^3/ul (0-0.8); ABS Neutrophils 3.2 10^3/ul (1.5-7.7); Eosinophil % 1.2 %; Hematocrit 39 % (35-47); Hemoglobin 13.3 g/dL (12.0-16.0); Lymphocyte % 29.9 %; Mean Corpuscular HGB Conc 34 g/dL (31-36); Mean Corpuscular Hemoglobin 30 pg (27-31); Mean Corpuscular Volume 90 fL (80-97); Nucleated Red Blood Cells % 0.1; Platelet Count 208 10^3/uL (150-450); Red Blood Count 4.39 10^6 /uL (3.70-4.87); Red Cell Distribution Width 14 % (10-15); White Blood Count 5.3 10^3/uL (3.5-10.8)
--- OUTSIDE RECORDS SUMMARY | 2019-05-22 11:32 | XMS REPORT | Summary of Care ---
:1950 Author Organization [facility] Address [address] [place] [address] Care Team Providers Name Role Phone Simran Leslie Primary Care Provider Jordan Poole Unavailable Melly Gasca Unavailable [place] RN Unavailable Unavailable Reason for Visit Reason Comments Cough x2 weeks Congestion Rash both legs x2 days Encounter Details Date Type Department Care Team Description 04/07/2019 Office Visit [place] Kassandra Jiménez, Contact dermatitis, unspecified contact dermatitis type, unspecified trigger (Primary Dx); Practice [facility] Screening examination for STD (sexually transmitted disease); [address] [facility] Acute [place] [address] [place] [address] [phone] Allergies Active Allergy Reactions Severity Noted Date Comments Clarithromycin GI Reaction 01/16/2014 Dextran 70 In Saline Other 04/25/2010 Metoprolol Succinate-Polysorbate 80 Musculoskeletal 02/26/2013 Arms ache documented as of this encounter (statuses as of 04/07/2019) Medications Medication Sig Dispensed Refills Start Date End Date Status Multiple Take by mouth. 0 Active Vitamins-Minerals (MULTIVITAL PO) ibuprofen (MOTRIN) 800 Take 1 Tab by 90 Tab 11 10/12/2017 Active MG Oral Tab mouth EVERY SIX HOURS NEEDED for Pain. albuterol HFA Take 2 Puffs by 18 g 5 04/23/2018 Active (VENTOLIN HFA) 108 (90 inhalation EVERY Base) MCG/ACT FOUR HOURS Inhalation Aero NEEDED (sob). SolnIndications: SOB (shortness of breath) Bisacodyl (DULCOLAX Place per rectum 0 Active RE) NEEDED. polyethylene glycol Take 17 g by 1020 g 0 06/12/2018 Active (MIRALAX) Oral Powder mouth TWICE DAILY. Losartan Potassium 100 TAKE 1 TABLET BY 90 Tab 3 08/19/2018 Active MG Oral Tab MOUTH EVERY DAY Magnesium Cl-Calcium Take by mouth. 0 Active Carbonate (SLOW MAGNESIUM/CALCIUM PO) Lancet Devices 1 Each by Does 100 Each 0 09/05/2018 Active (AUTOLET PLUS) Does not apply route not apply TWICE DAILY. MiscIndications: Elevated blood sugar Blood Glucose Monitor 1 Device by Does 1 Device 0 09/11/2018 Active Software Does not not apply route apply DIRECTED. DeviceIndications: contolled Elevated blood sugar non-insulin dependent diabetes. Brand: Insurance preferred levothyroxine [...] Tab mouth TWICE DAILY. nadolol (CORGARD) 20 Take 1 Tab by 135 Tab 3 12/13/2018 Active MG Oral mouth DAILY. TabIndications: Extra 20 mg as Ventricular arrhythmia needed atorvastatin (LIPITOR) Take 1 Tab by 90 Tab 3 12/13/2018 Active 40 MG Oral Tab mouth DAILY. topiramate (TOPAMAX) take 1 tablet by 0 12/19/2018 Active 25 MG Oral Tab mouth every evening for 1 week then take 2 tablets every evening oxybutynin (DITROPAN Take 1 Tab by 90 Tab 1 01/22/2019 Active XL) 5 MG Oral TABLET mouth DAILY. SR 24 HRIndications: Urge incontinence Glucose Blood In Vitro TEST TWO TIMES 200 Strip 0 02/19/2019 Active StripIndications: DAILY Elevated blood sugar amLodipine (NORVASC) Take 1 Tab by 90 Tab 3 03/03/2019 Active 10 MG Oral mouth DAILY. TabIndications: Essential hypertension Lancets Does not apply TEST BLOOD 200 Each 0 03/04/2019 Active MiscIndications: GLUCOSE TWO TIMES Elevated blood sugar DAILY Cholecalciferol Take 5,000 Units 0 Active (VITAMIN D3) 125 MCG by mouth DAILY. (5000 UT) Oral Cap ALPRAZolam (XANAX) 0.5 Take 1 Tab by 30 Tab 0 03/13/2019 Active MG Oral mouth THREE TIMES TabIndications: DAILY NEEDED Anxiety (anxiety). Max Daily Amount: 1.5 mg. doxycycline Take 100 mg by 20 Tab 0 04/07/2019 04/17/2019 Active (VIBRAMYCIN) 100 MG mouth TWICE DAILY Oral TabIndications: for 10 days. Acute recurrent maxillary sinusitis predniSONE (DELTASONE) Take 1 Tab by 10 Tab 0 04/07/2019 04/12/2019 Active 20 MG Oral mouth TWICE DAILY TabIndications: for 5 days. 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 How often do you attend religion or More than 4 times per year 03/20/2018 jainism services? Do you belong to any clubs or Yes 03/20/2018 organizations such as religion groups, unions, fraternal or athletic groups, or [...] Sign Reading Time Taken Comments Blood Pressure 136/70 04/07/2019 1:43 PM EST Pulse 59 04/07/2019 1:43 PM EST Temperature 36.6 04/07/2019 1:43 PM EST C (97.9 F) Respiratory Rate - - Oxygen Saturation 97% 04/07/2019 1:43 PM EST Inhaled Oxygen Concentration - - Weight - - Height - - Body Mass Index - - documented in this encounter Patient Instructions Patient InstructionsKassandra Jiménez FNP - 04/07/2019 1:40 PM ESTRest Fluids Steam may help loosen congestion Mucinex thins mucus salt water gargle as needed for sore/scratchy throat Call if symptoms fail to resolve or worsen Eat with medications documented in this encounter Progress Notes Kassandra Jiménez FNP - 04/07/2019 1:40 PM EST PATIENT: Krupa Pendleton : 1950 DATE OF SERVICE: 04/07/2019 CHIEF COMPLAINT: Chief Complaint Patient presents with Cough x2 weeks Congestion Rash both legs x2 days Subjective HISTORY OF PRESENT ILLNESS: Krupa Pendleton is a 69-y.o. female. HPI Recently returned from [place] - has itchy red rash on ankles bilaterally Increased sinus congestion with purulent drainage for past 2 weeks with cough Asking for STD screen - HIV order - having labs done at [facility] Past Medical History: Diagnosis Date Chronic back pain herniated L4-5, S1 - WC case Diverticulitis large intestine Fatty liver 02/10/2010 GERD (gastroesophageal reflux disease) Lipidoses Other malignant neoplasm without specification of site Postmenopausal S/P colonoscopy 05/02/12 Dr Vergara, [facility], next recommended 10 years Unspecified disorder of [...] by inhalation EVERY FOUR HOURS NEEDED (sob). ALPRAZolam (XANAX) 0.5 MG Oral Tab Take 1 Tab by mouth THREE TIMES DAILY NEEDED (anxiety).Max Daily Amount: 1.5 mg. amLodipine (NORVASC) 10 MG Oral Tab Take 1 Tab by mouth DAILY. Aspirin 81 MG Oral Tab Take 81 mg by mouth DAILY. atorvastatin (LIPITOR) 40 MG Oral Tab Take 1 Tab by mouth DAILY. Bisacodyl (DULCOLAX RE) Place per rectum NEEDED. Blood Glucose Monitor Software Does not apply Device 1 Device by Does not apply route DIRECTED. contolled non-insulin dependent diabetes. Brand: Insurance preferred Cholecalciferol (VITAMIN D3) 125 MCG (5000 UT) Oral Cap Take 5,000 Units by mouth DAILY. doxycycline (VIBRAMYCIN) 100 MG Oral Tab Take 100 mg by mouth TWICE DAILY for 10 days. fluticasone (FLONASE) 50 MCG/ACT Nasal Suspension USE TWO SPRAYS IN EACH NOSTRIL EVERY DAY Glucose Blood In Vitro Strip TEST TWO TIMES DAILY ibuprofen (MOTRIN) 800 MG Oral Tab Take 1 Tab by mouth EVERY SIX HOURS NEEDED for Pain. Lancet Devices (AUTOLET PLUS) Does not apply Misc 1 Each by Does not apply route TWICE DAILY. Lancets Does not apply Misc TEST BLOOD GLUCOSE TWO TIMES DAILY levetiracetam (KEPPRA) 500 MG Oral Tab Take [...] Take 17 g by mouth TWICE DAILY. predniSONE (DELTASONE) 20 MG Oral Tab Take 1 Tab by mouth TWICE DAILY for 5 days. topiramate (TOPAMAX) 25 MG Oral Tab take [...] resource strain: Not hard at all Food insecurity Worry: Never true Inability: Never true Transportation needs Medical: No Non-medical: No Tobacco Use Smoking status: Never Smoker Smokeless tobacco: Never Used Substance and Sexual Activity Alcohol use: No Alcohol/week: 0.0 standard drinks Drug use: No Sexual activity: Yes Partners: Male Lifestyle Physical activity Days per week: 3 days Minutes per session: 60 min Stress: Not at all Relationships Social connections Talks on phone: More than three times a week Gets together: Three times a week Attends jainism service: More than 4 times per year Active member of club or organization: Yes Attends meetings of clubs or organizations: More than 4 times per year Relationship status: Intimate partner violence Fear of current or ex partner: No [...] Not Asked Social History Narrative [place] , cat in home. 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 Negative for chills, diaphoresis and fever. HENT: Positive for congestion, ear pain and sinus pain. Negative for sore throat. Respiratory: Positive for cough. Negative for sputum production, shortness of breath and wheezing. Musculoskeletal: Negative for myalgias. Skin: Positive for itching and rash. Neurological: Positive for headaches. Negative for dizziness. Objective PHYSICAL EXAM: VITALS: BP 136/70 | Pulse 59 | Temp 97.9 F (36.6 C) (Tympanic) | SpO2 97% There is no height or weight on file to calculate BMI. Physical Exam Vitals signs and nursing note reviewed. Constitutional: General: She is not in acute distress. Appearance: She is obese. HENT: Head: Normocephalic and atraumatic. Right Ear: Tympanic membrane is retracted. Tympanic membrane is not erythematous. Left Ear: Tympanic membrane is retracted. Tympanic membrane is not erythematous. Nose: Mucosal edema, congestion and rhinorrhea present. Right Sinus: Maxillary sinus tenderness present. Left Sinus: Maxillary sinus tenderness present. Mouth/Throat: Lips: Cotulla. Mouth: Mucous membranes are moist. Pharynx: Oropharynx is clear. Uvula midline. No oropharyngeal exudate or posterior oropharyngeal erythema. Eyes: Extraocular Movements: Extraocular movements intact. Conjunctiva/sclera: Conjunctivae normal. Pupils: Pupils are equal, round, and reactive to light. Neck: Musculoskeletal: Normal range of motion. No neck rigidity. Cardiovascular: Rate and Rhythm: Normal rate and regular rhythm. Pulmonary: Effort: Pulmonary effort is normal. Breath sounds: Normal breath sounds. Lymphadenopathy: Cervical: No cervical adenopathy. Skin: General: Skin is warm and dry. Capillary Refill: Capillary refill takes less than 2 seconds. Findings: Rash present. Rash is not pustular or vesicular. Neurological: Mental Status: She is alert and oriented to person, place, and time. Cranial Nerves: Cranial nerves are intact. Gait: Gait is intact. Psychiatric: Mood and Affect: Mood normal. Behavior: Behavior normal. Behavior is cooperative. ASSESSMENT / IMPRESSION: ICD-9-CM ICD-10-CM 1. Contact dermatitis, unspecified contact dermatitis type, unspecified trigger 692.9 L25.9 predniSONE (DELTASONE) 20 MG Oral Tab 2. Screening examination for STD (sexually transmitted disease) V74.5 Z11.3 HIV 1,2 ANTIBODY SCREEN 3. Acute recurrent maxillary sinusitis 461.0 J01.01 doxycycline (VIBRAMYCIN) 100 MG Oral Tab Plan Rest Fluids Steam may help loosen congestion Mucinex thins mucus salt water gargle as needed for sore/scratchy throat Call if symptoms fail to resolve or worsen Eat with medications Lab order given to pt per request after counseling Author: CARMELA Weber 04/07/2019 14:05 documented in this encounter Plan of Treatment Date Type Specialty Care Team Description 06/13/2019 Office Visit Internal Medicine Leslie Khalil MD [facility] [place] [address] 06/25/2019 Office Visit Cardiology Jordan Poole MD [address] [place] [address] Name Type Priority Associated Diagnoses Order Schedule HIV 1,2 ANTIBODY SCREEN Lab Routine Screening examination for Expected: 09/2019 STD (sexually transmitted (Approximate), disease) Expires: 04/07/2020 Health Maintenance Due Date Last Done Comments MEDICARE ANNUAL WELLNESS 03/20/2019 03/20/2018, 03/07/2016, VISIT 03/04/2015 LIPID DISORDER SCREENING 12/14/2019 12/13/2018, 10/02/2018, 03/08/2018, Additional history exists DIABETES SCREENING 01/02/2020 01/01/2019, 10/02/2018, 10/02/2018, Additional history exists DEPRESSION SCREENING 03/13/2020 03/13/2019, 03/13/2019 FALL RISK ASSESSMENT 03/13/2020 03/13/2019, 03/13/2019 MAMMOGRAM (SCREENING) 03/13/2020 03/13/2019, 03/12/2018, 03/08/2017, Additional history exists ZOSTER IMMUNIZATION SERIES 03/13/2020 04/25/2013 Postponed from (2 of 3) 06/20/2013 (Vaccine not available) Colonoscopy 01/16/2022 01/16/2019, 01/16/2019, 06/18/2018, Additional history exists DTaP/Tdap/Td Vaccines (2 - 12/10/2024 12/10/2014 Tdap) OSTEOPOROSIS SCREENING 08/20/2028 08/20/2018, 04/22/2012 PNEUMOCOCCAL 65+YRS Completed 09/11/2017, 05/31/2016, 03/23/2015 INFLUENZA VACCINE Completed 01/19/2019, 02/20/2018, 12/09/2015, Additional history exists HEPATITIS A IMMUNIZATION Aged Out No longer eligible SERIES based on patient's age to complete this topic HPV IMMUNIZATION SERIES Aged Out No longer eligible based on patient's age to complete this topic MENINGOCOCCAL VACCINE IMM Aged Out No longer eligible based on patient's age to complete this topic documented as of this encounter Goals Goal Patient Goal Associated Recent Patient-Stated? Author Type Problems Progress Blood Pressure Blood Pressure 136/70 No Padmaja, < 150/90 (04/07/2019 CARMELA Valenzuela 1:43 PM EST) Note: This is an individualized treatment (blood [...] better. Weight loss vs. 18 mo Lifestyle 36.7 (03/21/2019 10:32 AM No Bianca Giang FNP max (lbs) >= 10 EST) Note: This is an individualized lifestyle goal for Krupa Pendleton: Your body mass index (BMI) is more than 30. You should lose weight. A reasonable starting goal is to lose 10 pounds. Displayed above is how many pounds you have lost thus far towards your 10 pound weight loss goal. Keep immunizations current Lifestyle Leslie Guy MD Note: This is an individualized lifestyle goal for Krupa Pendleton: Please be sure to keep up-to-date on recommended immunizations. For example, this would include a yearly influenza vaccine. Immunization status can be seen by looking at the Health Maintenance sections of your [facility], Plan of Care, and any After Visit Summaries. Take all prescribed medications as Self-management Bianca Bolaños FNP directed Note: This is an individualized [...] filedocumented in this encounter Visit Diagnoses Diagnosis Screening examination for STD (sexually transmitted disease) Screening examination for venereal disease Contact dermatitis, unspecified contact dermatitis type, unspecified trigger Acute recurrent maxillary sinusitis Acute maxillary sinusitis documented in this encounter Insurance Payer Benefit Plan / Subscriber ID Effective Dates Phone Address Type Group [employer] MEDIC[employer] EXCELLUS xxxxxxxxxxxx 2017-Present [employer] ADVANTAGE MEDICARE BLUE PPO ([phone]) documented as of this encounter"
[2019-05-22 12:01] LABS: Albumin 4.3 g/dL (3.2-5.2); BUN/Creatinine Ratio 17.3 (8-20); Calcium 8.9 mg/dL (8.6-10.3); EGFR African American 63.6 (>60); EGFR Non-African American 52.5 (>60); Globulin 2.2 g/dL (2-4); Magnesium 2.2 mg/dL (1.9-2.7); Potassium 3.9 mmol/L (3.5-5.0); Total Bilirubin 0.4 mg/dL (0.2-1.0); Total Protein 6.5 g/dL (6.4-8.9)
[2019-05-22] MEDS ORDERED: Iodixanol* (CONTRAST) 320 MG/ML 100 ML SDV IV ONE (12:49)
[2019-05-22] MEDS ORDERED: Acetaminophen TAB* 325 MG PO PRN (14:08)
[2019-05-22] MEDS: levETIRAcetam TAB* 500 MG PO SCH ×2 (15:10→21:18)
--- NOTE | 2019-05-22 15:36 | HP ---
CC: Dr. Leslie Khalil; Dr. Poole * HISTORY AND PHYSICAL: DATE OF ADMISSION: 05/22/19 PRIMARY CARE PROVIDER: Dr. Leslie Khalil. AURICULAR THERAPIST: Dr. Poole. ATTENDING PHYSICIAN: Dr. Cheikh Colmenares * (dictated by MIKI Avilez). CHIEF COMPLAINT: Chest pain, nausea. HISTORY OF PRESENT ILLNESS: Ms. Pendleton is a 69-year-old female with past medical history of hypertension; hyperlipidemia; thyroid cancer, status post thyroidectomy, now hypothyroidism; history of PVCs, who presented today with complaints of chest pain radiating to the back with associated nausea. The patient states she awoke at 0700 this morning with pain that was intermittent. The pain continued until 9 a.m. when she called her trade economist, who suspected she was having recurrent PVCs and recommended nadolol and aspirin 324 mg. She followed his recommendations and approximately 20 minutes later due to continued chest pain she called EMS, who brought her to the ER. In the ambulance, she was given aspirin 81 mg and nitro which she states helped to relieve the pain. Since this time, she has had 2 "small" episodes of chest pain since nitro was administered. She reports that her chest pain is not pleuritic and not associated with activity. She describes the pain as sharp and radiating to the back with associated nausea. She does not have diaphoresis , shortness of breath, or vomiting. She does report some dizziness/ lightheadedness, but notes that she has had this for approximately 1 month since she started Zoloft, which she discontinued yesterday as it was suspected to be causing her dizziness/lightheadedness. Incidentally, the patient complains of chronic constipation, which is unchanged. The patient's HEART score is 4 points, placing her at moderate risk of MACE of 12% to 16.6%. In the ER, the patient received a full workup. CBC and CMP were benign except for a mildly elevated creatinine of 1.04. D-dimer was elevated to 331. Troponin was 0.00 x1. EKG was obtained and showed a rate of 54 with T-wave inversions in leads III and V1, which are unchanged from May 2018 EKG. Chest x-ray is negative for acute abnormality. CTA of the chest is negative for pulmonary embolism. The hospitalist team was asked to evaluate the patient for admission. PAST MEDICAL HISTORY: 1. Hypertension. 2. Hyperlipidemia. 3. Thyroid cancer, status post thyroidectomy in 2010, now with hypothyroidism. 4. History of PVCs. 5. Suspected seizure disorder. PAST SURGICAL HISTORY: Thyroidectomy, cholecystectomy, hysterectomy, rectocele repair, sinus surgery x2, ovarian cyst, appendectomy, right thumb fracture repair. HOME MEDICATIONS: 1. Amlodipine 10 mg p.o. daily. 2. Aspirin 81 mg p.o. daily. 3. Atorvastatin 40 mg p.o. daily. 4. Cholecalciferol 5000 units p.o. daily. 5. Levetiracetam 500 mg p.o. b.i.d. 6. Levothyroxine 125 mcg p.o. daily. 7. Losartan 100 mg p.o. daily. 8. Magnesium chloride 128 mg p.o. daily. 9. Nadolol 20 mg p.o. daily. 10. Topiramate 50 mg p.o. at bedtime. DRUG ALLERGIES/ADVERSE REACTIONS: METOPROLOL, muscle aches; NITROFURANTOIN, rash; AUGMENTIN, GI upset. FAMILY HISTORY: Mother at the age of 49 from subarachnoid hemorrhage. Maternal grandmother of old age. Maternal grandfather in car accident. The patient had a brother who in car accident and a brother who of colon cancer. She has 2 living siblings, who have a variety of mental illness including hypertension, hyperlipidemia, bipolar, alcohol use disorder. She has no family history for her father. She reports multiple aunts and uncles on her mother's side who at the age of less than 50 from cardiac disease. SOCIAL HISTORY: The patient denies current or former use of tobacco. She does not use alcohol or illicit drugs. 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 She is , with 2 children. She lives with her spouse. In the event that she is unable to make her own medical decisions, she has appointed her , Vignesh Pendleton, to be her surrogate decision maker. REVIEW OF SYSTEMS: A 14-point review of systems has been performed and all the pertinent positives and negatives are in the HPI. All other systems are negative. PHYSICAL EXAMINATION GENERAL: Ms. Pendleton is a well-developed, well-nourished, overweight, older white female, who is sitting up in bed. She appears to be in no acute distress. She is pleasant, cooperative. She is breathing comfortably on room air. HEENT: PERRL. EOMI. Visual ferrera are grossly intact. Sclerae are nonicteric without injection. Hearing is grossly intact. Oral mucous membranes are moist. There are no lesions. The pharynx is clear. The tongue is at midline. Palate elevates symmetrically. Trachea is at midline. PULMONARY: Symmetrical chest expansion. No use of accessory muscles. Clear to auscultation bilaterally without rhonchi, wheeze, or rales. CARDIOVASCULAR: Regular rate and rhythm with S1, S2 present. No murmurs, rubs , clicks, or gallops. There is no JVD. There is no peripheral edema. ABDOMEN: Bowel sounds in all quadrants. Soft, nontender to palpation. MUSCULOSKELETAL: Full range of motion without pain or deformities. NEURO: The patient is awake. She is alert and oriented x3. Cranial nerves II through XII are grossly intact. She is able to move all of her extremities. Her motor strength is 5/5 bilaterally in the upper and lower extremities. DIAGNOSTIC STUDIES/LAB DATA: 1. CBC: WBC 5.3, hemoglobin 13.3, hematocrit 39, MCV 90, platelets 208. D- dimer 331. 2. CMP: Sodium 143, potassium 3.9, chloride 109, carbon dioxide 28, anion gap 6, BUN 18, creatinine 1.04, glucose 95, magnesium 2.2. Troponin 0.00. 3. EKG: Rate 54, flat to negative T-wave in lead III, T-wave inversion in V1, unchanged from March 2019. 4. Chest x-ray, impression: No acute cardiopulmonary process by radiograph. Postoperative changes in the lower neck. 5. CTA of the chest, impression: No pulmonary embolism. Status post thyroidectomy. Thoracic aorta normal in caliber. Mild calcific plaque present. ASSESSMENT AND PLAN: Ms. Pendleton is a 69-year-old female with past medical history of hypertension, hyperlipidemia, history of premature ventricular contractions, who presented to the ER today with complaints of intermittent chest pain. She will be admitted observation for: 1. Chest pain. The patient presents with chest pain that woke her from sleep that is intermittent and stabbing and relieved with nitro, not pleuritic and not associated with activity. EKG has some mild abnormalities, although these are unchanged from EKGs from May and March of 2019. Her HEART score is 4. She will be admitted and we will continue to trend her troponins; first troponin is 0.00. She will have an exercise stress test in the morning. We will risk stratify with hemoglobin A1c. She did have a recent lipid panel at the beginning of April that showed an LDL of 111 and her statin dose was adjusted by her PCP at that time. She has been placed on telemetry. She will continue her aspirin 81 mg as at home. 2. Hypertension. Continue amlodipine, losartan, nadolol. 3. Hyperlipidemia. Continue atorvastatin. Her most recent LDL was 111 in April 2019. At that time, her PCP increased her atorvastatin from 20 to 40. She will continue to follow with her PCP for management. 4. Hypothyroidism, status post thyroid cancer in 2009, with subsequent thyroidectomy. Continue levothyroxine. 5. Seizure disorder. Continue levetiracetam, topiramate. 6. DVT prophylaxis: According to DVT Risk Assessment, the patient scores 3, placing her at high risk. She has been started on Lovenox. 7. Code status: Full code. TIME SPENT: Approximately 60 minutes was spent on this admission, greater than half that time was spent [id number] with the patient obtaining history, performing physical, and reviewing the plan of care. The case has been discussed with my attending, Dr. Colmenares, who is in agreement with the plan of care. MIKI VILLEGAS [id number]/[facility] #: [id number] LIZZY
[2019-05-22] MEDS ORDERED: Enoxaparin(*) 40 MG/0.4 ML SYR SUBCUT SCH (18:00)
[2019-05-22] MEDS ORDERED: amLODIPine TAB* 5 MG PO SCH (21:00)
[2019-05-22] MEDS ORDERED: Atorvastatin* 80 MG TAB PO SCH (21:00)
[2019-05-22] MEDS ORDERED: Nadolol TAB* 40 MG PO SCH (21:00)
[2019-05-22] MEDS ORDERED: Topiramate TAB(*) 25 MG PO SCH (21:00)
[2019-05-22] MEDS ORDERED: Atorvastatin* 40 MG TAB PO SCH ×2 (21:00)
[2019-05-22] MEDS ORDERED: Losartan TAB* 25 MG PO SCH (21:00)
[2019-05-23] MEDS ORDERED: Levothyroxine TAB* 125 MCG TAB PO SCH (06:00)
[2019-05-23] MEDS: levETIRAcetam TAB* 500 MG PO SCH (07:28)
[2019-05-23 07:34] VITALS: BP 108/59
[2019-05-23] MEDS ORDERED: Aspirin EC TAB* 81 MG TAB.EC PO SCH (09:00)
--- NOTE | 2019-05-23 15:06 | DS ---
CC: Dr. Leslie Khalil * DISCHARGE SUMMARY: DATE OF ADMISSION: 05/22/19 DATE OF DISCHARGE: 05/23/19 PRIMARY CARE PROVIDER: Dr. Leslie Khalil. ATTENDING PHYSICIAN: Dr. Jessica Randolph.* (DICTATED BY JESSICA OLIVEROS NP) PRIMARY DIAGNOSIS: Chest pain, suspected esophageal spasm. SECONDARY DIAGNOSES: 1. Hypertension. 2. Hyperlipidemia. 3. Hypothyroidism secondary to thyroidectomy. 4. Seizure disorder. STUDIES WHILE IN THE HOSPITAL: 1. EKG on 05/22/19 shows sinus bradycardia with a rate of 54, no ST changes, QTc 430, DC 177. 2. Chest x-ray on 05/22/19 reads as no acute cardiopulmonary process by radiograph. Postoperative changes in the lower neck. 3. Chest CTA on 05/22/19 reads as no pulmonary embolism. Status post thyroidectomy. 4. EKG on 05/23/19 shows sinus bradycardia with a rate of 52, QTc of 442, DC 185, no ST changes. HISTORY OF PRESENT ILLNESS AND HOSPITAL COURSE: Ms. Pendleton is a 69-year-old female with past medical history of hypertension; hyperlipidemia; hypothyroidism , status post thyroidectomy, PVCs, and seizure disorder, who presented to the emergency room on 05/22/19 with complaints of chest pain. Please see the history and physical by MIKI Avilez for a complete summary of the events leading up to this hospitalization. In short, the patient had intermittent chest pain on the day of presentation. She spoke with her acetylene gas compressor, who thought that she may be experiencing recurrent PVCs and so recommended that she take her nadolol and aspirin, though after 20 minutes she continued to have pain and so called EMS. In the ambulance, she was given aspirin and nitro, which she reports relieved the pain. She had 2 further short episodes of pain after that, though no more significant pain. In the emergency room, she had imaging as noted above. She did have a negative troponin. She had a mildly elevated D-dimer at 331 and so a CTA was done to rule out PE, which was negative. The patient was noted to have a HEART score of 4 and so she was admitted for an inpatient stress test. The patient was monitored on telemetry without any significant arrhythmias. She did have 3 negative troponins. A lipid panel was not done as she had one recently in April. She did have an A1c which was 5.6%. Creatinine was very mildly elevated on admission, though not concerning at this point. She did have a nonnuclear exercise stress test today which was noted to be low risk. The patient has not had any further symptoms and is anxious to return home. Based on the patient's history, it sounds as though she may have experienced an esophageal spasm as there is no evidence of ACS at this time. On exam, she is alert and oriented x4 with no focal neurological deficits. Heart has a regular rate and rhythm without murmurs, rubs, or gallops. Lungs are clear to auscultation without rhonchi, wheezes, or rubs. There is no edema. Physical exam is otherwise benign. Ms. Pendleton is stable for discharge. Most recent vitals are as follows: Temp 97.9, heart rate 52, respiratory rate 20, oxygen saturation 95% on room air, blood pressure 108/59. DISCHARGE MEDICATIONS: Continued: 1. Amlodipine 10 mg p.o. daily. 2. Aspirin 81 mg p.o. daily. 3. Atorvastatin 40 mg p.o. daily. 4. Cholecalciferol 5000 units p.o. daily. 5. Keppra 500 mg p.o. b.i.d. 6. Levothyroxine 125 mcg p.o. daily. 7. Losartan 100 mg p.o. daily. 8. Magnesium chloride 128 mg p.o. daily. 9. Nadolol 20 mg p.o. daily. 10. Topamax 50 mg p.o. at bedtime. DISCHARGE PLAN: Ms. Pendleton will be discharged home. Activity will be as tolerated. Diet will be regular as tolerated. Medications are noted above. The patient can resume her usual medications and I have not made any changes. I did speak with the patient about possible treatment for esophageal spasm and I did advise her that if she has similar pain in the future, she can attempt to use peppermint oil as this is first line treatment for esophageal spasm and she can try using peppermint Altoids as these are recommended, specifically for a first line treatment. She will need to follow up with her primary care provider in the next 4 to 7 days. She can follow up with her acetylene gas compressor as needed. She should return to the emergency room or nearest hospital for any worsening of symptoms, shortness of breath, lightheadedness, dizziness, chest discomfort, high fevers, chills, night sweats, loss of consciousness, or any other worrisome signs or symptoms. DISCHARGE CONDITION: Stable. DISCHARGE DISPOSITION: Home. This is a summarized report of a complex medical history and hospital stay. For further details, please see the entire medical record. TIME SPENT: Approximately 40 minutes was spent on this discharge. JESSICA OLIVEROS, AGRISCIENCE [employer]Y INSTRUCTOR [id number]/CPS #: [id number]
== END 2019-05-23 11:05 | disposition home or self-care (01) ==
LOC: ED 10:36 → MEDTELE 14:08
PROVIDERS: ADMIT Internal Medicine; ATTEND Internal Medicine
DX: R07.9 Chest pain, unspecified (principal); R11.0 Nausea; E03.9 Hypothyroidism, unspecified; I10 Essential (primary) hypertension; E78.5 Hyperlipidemia, unspecified; G40.909 Epilepsy, unspecified, not intractable, without status epilepticus; E78.00 Pure hypercholesterolemia, unspecified; Z88.0 Allergy status to penicillin; Z79.890 Hormone replacement therapy; Z79.899 Other long term (current) drug therapy; Z85.850 Personal history of malignant neoplasm of thyroid; Z92.89 Personal history of other medical treatment; Z79.82 Long term (current) use of aspirin
CPT/HCPCS: 36415; 71046; 71275; 80053; 83036; 83735; 84484; 85025; 85379; 93005; 93017; 96372; 99284; A9270-GY; G0378; J1650; Q9967

== ENCOUNTER 2019-06-23 18:36 | Emergency (ER) | payer MEDICARE ==
--- OUTSIDE RECORDS SUMMARY | 2019-06-23 19:36 | XMS REPORT | Summary of Care ---
:1950 Author Organization [facility] Address [address] [address] Care Team Providers Name Role Phone Reglanehemiahramona Leslie Primary Care Provider Jordan Poole Unavailable Nayely Gascaricia Unavailable Mine [place] RN Unavailable Unavailable Reason for Referral Refer to Department Only (Routine) Status Reason Specialty Diagnoses / Referred By Referred To Procedures Contact Contact Pending GASTROENTEROLOGY / Diagnoses Gastroesophageal reflux disease, esophagitis presence not specified Globus sensation Hola Juárez Review Gastroenterology Yvonne Lenz, Gastroenterol CLINICAL DATA MANAGEMENT DIRECTOR ogy/Hepatolog [address] [place], [place] [id number] Road Phone: [place], [place] [phone] Fax: Scheduling Instructions BP 120/80 | Pulse 66 | Temp 97.8 F (36.6 C) | Ht 5' 4" (1.626 m) | Wt 166 lb (75.3 kg) Comment: Stated by pt. | BMI 28.49 kg/m BMI Readings from Last 4 Encounters: 05/26/19 : 28.49 kg/m 03/21/19 : 27.86 kg/m 03/13/19 : 28.01 kg/m 03/03/19 : 27.98 kg/m Controlled Substance Medications: ALPRAZolam Anticoagulant Medications: Psychiatric/Antianxiety Medications: ALPRAZolam Antiretroviral Medications: Outpatient Procedure (Routine) Status Reason Specialty Diagnoses / Referred By Referred To Procedures Contact Contact Pending Review Diagnoses Gastroesophageal reflux disease, esophagitis presence not specified Globus sensation Yvonne Juárez NP [address] [address] Reason for Visit Reason Comments Hospital Follow Up Follow-up to recent hospitalization at [facility] for chest pain, cardiac causes rules out. Encounter Details Date Type Department Care Team Description 05/26/2019 Office Visit Hola Juárez Gastroesophageal reflux disease , esophagitis presence not specified (Primary Dx); Gastroenterology/He Yvonne Lenz NP Globus sensation patology [address] [facility] [address] [address] [place] [address] [phone] Allergies Active Allergy Reactions Severity Noted Date Comments Clarithromycin GI Reaction 01/16/2014 Dextran 70 In Saline Other 04/25/2010 Sertraline Other 05/26/2019 Hand tremors, severe headaches, lethargy, facial numbness Metoprolol Musculoskeletal 02/26/2013 Arms ache Succinate-Polysorbate 80 documented as of this encounter (statuses as of 05/26/2019) Medications Medication Sig Dispensed Refills Start Date End Date Status Multiple Take by mouth. 0 Active Vitamins-Minerals (MULTIVITAL PO) albuterol HFA Take 2 Puffs by 18 g 5 04/23/2018 Active (VENTOLIN HFA) 108 (90 inhalation EVERY Base) MCG/ACT FOUR HOURS Inhalation Aero NEEDED (sob). SolnIndications: SOB (shortness of breath) Bisacodyl (DULCOLAX Place per rectum 0 Active RE) NEEDED. polyethylene glycol Take 17 g by mouth 1020 g 0 06/12/2018 Active (MIRALAX) Oral Powder TWICE DAILY. Losartan Potassium 100 TAKE 1 TABLET BY 90 Tab 3 08/19/2018 Active MG Oral Tab MOUTH EVERY DAY Magnesium Cl-Calcium Take by mouth. 0 Active Carbonate (SLOW MAGNESIUM/CALCIUM PO) Lancet Devices 1 Each by Does not 100 Each 0 09/05/2018 Active (AUTOLET PLUS) Does apply route TWICE not apply DAILY. MiscIndications: Elevated blood sugar Blood Glucose Monitor 1 Device by Does 1 Device 0 09/11/2018 Active Software Does not not apply route apply DIRECTED. DeviceIndications: contolled Elevated blood sugar non-insulin dependent diabetes. Brand: Insurance preferred levothyroxine take 1 tablet by 90 Tab 3 11/18/2018 Active (SYNTHROID) 125 MCG mouth once daily Oral Tab BEFORE BREAKFAST Additional Information Patient taking differently: 125 mcg DIRECTED, 6 days per week, Reported on 05/26/2019 1:15 PM fluticasone (FLONASE) USE TWO SPRAYS 3 Bottle 5 11/25/2018 Active 50 MCG/ACT Nasal IN EACH Suspension NOSTRIL EVERY DAY Aspirin 81 MG Oral Tab [...] MG Oral Tab mouth DAILY. topiramate (TOPAMAX) Take 50 mg by 0 12/19/2018 Active 25 MG Oral Tab mouth EVERY EVENING. oxybutynin (DITROPAN Take 1 Tab by 90 [...] Each 0 03/04/2019 Active MiscIndications: GLUCOSE TWO Elevated blood sugar TIMES DAILY Cholecalciferol Take 5,000 0 Active (VITAMIN D3) 125 MCG Units by mouth (5000 UT) Oral Cap DAILY. ALPRAZolam (XANAX) 0.5 Take 1 Tab by 30 Tab 0 03/13/2019 Active MG Oral mouth THREE TabIndications: TIMES DAILY Anxiety NEEDED (anxiety). Max Daily Amount: 1.5 mg. meclizine (ANTIVERT) Take 1 Tab by 30 Tab 0 05/05/2019 Active 12.5 MG Oral Tab mouth THREE TIMES DAILY NEEDED for dizziness/vert igo. ibuprofen (MOTRIN) 800 Take 1 Tab by 90 Tab 11 10/12/2017 Discontinued MG Oral Tab mouth EVERY 020 (Error) SIX HOURS NEEDED for Pain. sertraline (ZOLOFT) 50 Take 1 Tab by 30 Tab 3 04/17/2019 Discontinued MG Oral Tab mouth DAILY. 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 How often do you attend yazdanism or More than 4 times per year 03/20/2018 congregation services? Do you belong to any clubs or Yes 03/20/2018 organizations such as yazdanism groups, unions, fraternal or athletic groups, or [...] Assigned at Date Recorded Not on file documented as of this encounter Last Filed Vital Signs Vital Sign Reading Time Taken Comments Blood Pressure 120/80 05/26/2019 1:11 PM EST Pulse 66 05/26/2019 1:11 PM EST Temperature 36.6 05/26/2019 1:11 PM C (97.8 EST F) Respiratory Rate - - Oxygen Saturation - - Inhaled Oxygen Concentration - - Weight 75.3 kg (166 lb) 05/26/2019 1:11 PM Stated by pt. EST Height 162.6 cm (5' 4") 05/26/2019 1:11 PM EST Body Mass Index 28.49 05/26/2019 1:11 PM EST documented in this encounter Patient Instructions Patient InstructionsYvonne Juárez NP - 05/26/2019 1:20 PM EST1. Schedule upper endoscopy here in [place] 2. See dietary instruction below 3. Will hold on acid community center director for now, consider using Mylanta or Gaviscon for any recurrence of your symptoms 4. Follow up after the above Patient Education Acid Reflux and GERD in Adults Discharge Instructions About this topic GERD stands for gastroesophageal reflux disease. It is sometimes just called reflux. Normally, food goes from the mouth through the food pipe and then into the belly. The food pipe is also called the esophagus. This condition happens when the contents of the belly leak into the food pipe. This leakingcan irritate the food pipe. You may feel a burning pain in your chest called heartburn. You may haveburping, bloating, and belly pain after eating. GERD can be treated in many different ways. Sometimes, doctors use drugs or suggest changes in lifestyle. Other times, diet changes or surgery is needed. What care is needed at home? Ask your doctor what you need to do when you go home. Make sure you ask questions if you do notunderstand what the doctor says. This way you will know what you need to do. Maintain a healthy weight. Avoid stress. Avoid belts and clothes that are too tight. Eat small meals more often. Do not skip meals. Do not eat large meals to make up for missed meals. Avoid eating 2 to 3 hours before bedtime. Do not to lie down for at least 2 hours after eating. Raise the head of your bed 6 to 8 inches (15 to 20 cm). Use wooden blocks under the head of thebed. Just sleeping with your head raised on pillows is not enough. It can cause discomfort and make your signs worse. Do not drink beer, wine, and mixed drinks (alcohol). Do not smoke. What follow-up care is needed? Your doctor may ask you to make visits to the office to check on your progress. Be sure to keep these visits. What drugs may be needed? The doctor may order drugs to: Relieve heartburn Prevent reflux Lessen acid production Heal the esophageal lining Will physical activity be limited? Your physical activities will not be limited. What changes to diet are needed? Limit caffeine intake. Avoid eating oranges, berries, tomatoes, and other foods high in acid. Eat only small amounts of spicy, fatty, and fried foods, or avoid them altogether. Keep track of the foods that cause your signs to become worse. Avoid or limit these food items. What problems could happen? Asthma Precancerous changes in the food pipe Long-term cough Dental problems Higher risk of cancer of the food pipe. This is esophageal cancer. Narrowing of the food pipe. This is a stricture. Open sore in the food pipe. This is an ulcer. When do I need to call the doctor? Pain or a feeling of food getting stuck in your throat Frequent throwing up or throwing up fluid that looks like blood or coffee grounds Pain in the chest or upper part of the belly Very bad heartburn that lasts for a long time Cough, hoarseness of voice, or bad breath Wheezing, shortness of breath or other problems breathing Unintended weight loss or not wanting to eat You are not feeling better in 2 to 3 days or you are feeling worse Teach Back: Helping You Understand The Teach Back Method helps you understand the information we are giving you. The idea is simple. After talking with the staff, tell them in your own words what you were just told. This helps to make sure the staff has covered each thing clearly. It also helps to explain things that may have been a bit confusing. Before going home, make sure you are able to do these: I can tell you about my condition. I can tell you what changes I need to make with my eating habits to ease the reflux. I can tell you what I will do if I am throwing up fluid that looks like blood or coffee grounds. Where can I learn more? [employer] https://familydoctor.org/condition/refluxacid-reflux/ NHS Choices https://www.nhs.uk/conditions/toqbyuzyv-cjv-kppx-reflux/ Last Reviewed Date 2018-05-07 Consumer Information Use and Disclaimer This information is not specific medical advice and does not replace information you receive from your health care provider. This is only a brief summary of general information. It does NOT include allinformation about conditions, illnesses, injuries, tests, procedures, treatments, therapies, discharge instructions or life-style choices that may apply to you. You must talk with your health care provider for complete information about your health and treatment options. This information should not beused to decide whether or not to accept your health care provider?s advice, instructions or recommendations. Only your health care provider has the knowledge and training to provide advice that is right for you. Copyright Copyright 2019 [employer] and its affiliates and/or licensors. All rights reserved. documented in this encounter Progress Notes Yvonne Juárez NP - 05/26/2019 1:20 PM EST PATIENT: Krupa Pendleton : 1950 DATE OF SERVICE: 05/26/2019 REFERRING PRACTITIONER: Self-Referred PRIMARY CARE PROVIDER: Leslie Khalil CHIEF COMPLAINT: Chief Complaint Patient presents with ? Hospital Follow Up Follow-up to recent hospitalization at [facility] for chest pain, cardiac causes rules out. Subjective HISTORY OF PRESENT ILLNESS: Krupa Pendleton is a 69-y.o. female who presents for a consultation for evaluation of gastroesophageal reflux disease. Onset was problem is longstanding, this episode began several weeks ago. Symptoms have been intermittent since. Diagnosed previously: yes; several years by EGD with Dr. Vergara. Symptoms include: abdominal bloating, belching and chest pain. Was seen at [facility], has cardiac ruleout and negative stress test. She denies dysphagia. She has not lost weight. She denies melena, hematochezia, hematemesis, and coffee ground emesis. Aggravated by: eating and stress Alleviated by: spontaneous resolution over time Associated signs and symptoms: globus sensation Medical therapy in the past has included declines medications at this time. The patient denies: dysphagia, dynophagia, weight loss, bleeding. Past Medical History: Diagnosis Date ? Chronic back pain herniated L4-5, S1 - WC case ? Diverticulitis large intestine ? Fatty liver 02/10/2010 ? GERD (gastroesophageal reflux disease) ? Lipidoses ? Other malignant neoplasm without specification of site ? Postmenopausal ? S/P colonoscopy 05/02/12 Dr Vergara, [facility], next recommended 10 years ? Unspecified disorder of thyroid ? Unspecified essential hypertension Past Surgical History: Procedure Laterality Date ? COLONOSCOPY N/A 01/16/2019 Procedure: COLONOSCOPY; Surgeon: Carlos Stevenson MD FACG; Location: [facility] OR ? COMPLETE THYROIDECTOMY 07/2009 malignant ? WY HYSTERECTOMY VAGINAL W/ REPAIR OF ENTEROCELE ovaries remain ? W[place] REMOVAL GALLBLADDER ? [place] TOTAL KNEE ARTHROPLASTY Left 2017 ? RECTOCELE REPAIR 03/22/2015 Family History Problem Relation Age of Onset ? Diabetes Maternal Aunt ? Heart Maternal Aunt ? Breast Cancer Maternal Aunt 43 ? Heart Brother ? High Cholesterol Brother ? Hypertension Brother ? Alcohol/Drug Brother ETOH ? Diabetes Brother ? Psychiatry Brother Bipolar ? Hypertension Brother ? High Cholesterol Brother ? Alcohol/Drug Brother ETOH ? Diabetes Brother ? Heart Maternal Uncle ? Diabetes Maternal Aunt ? Alcohol/Drug Daughter Recovering ? Heart Mother ? Other Diagnosed Disorder Mother Subarachnoid hemorrhage ? Other Diagnosed Disorder Father Post MVA ? Cancer Brother Bowel with mets ? Other Diagnosed Disorder Brother MVA ? Hypertension Son ? High Cholesterol Son ? Alcohol/Drug Son Current Outpatient Medications Medication Sig ? albuterol HFA (VENTOLIN HFA) 108 (90 Base) MCG/ACT Inhalation Aero Soln Take 2 Puffs by inhalation EVERY FOUR HOURS NEEDED (sob). ? ALPRAZolam (XANAX) 0.5 MG Oral Tab Take 1 Tab by mouth THREE TIMES DAILY NEEDED (anxiety). Max Daily Amount: 1.5 mg. ? amLodipine (NORVASC) 10 MG Oral Tab Take 1 Tab by mouth DAILY. ? Aspirin 81 MG Oral Tab Take 81 mg by mouth DAILY. ? atorvastatin (LIPITOR) 40 MG Oral Tab Take 1 Tab by mouth DAILY. ? Bisacodyl (DULCOLAX RE) Place per rectum NEEDED. ? Blood Glucose Monitor Software Does not apply Device 1 Device by Does not apply route DIRECTED. contolled non-insulin dependent diabetes. Brand: Insurance preferred ? Cholecalciferol (VITAMIN D3) 125 MCG (5000 UT) Oral Cap Take 5,000 Units by mouth DAILY. ? fluticasone (FLONASE) 50 MCG/ACT Nasal Suspension USE TWO SPRAYS IN EACH NOSTRIL EVERY DAY ? Glucose Blood In Vitro Strip TEST TWO TIMES DAILY ? Lancet Devices (AUTOLET PLUS) Does not apply Misc 1 Each by Does not apply route TWICE DAILY. ? Lancets Does not apply Misc TEST BLOOD GLUCOSE TWO TIMES DAILY ? levetiracetam (KEPPRA) 500 MG Oral Tab Take 500 mg by mouth TWICE DAILY. ? levothyroxine (SYNTHROID) 125 MCG Oral Tab take 1 tablet by mouth once daily BEFORE BREAKFAST (Patient taking differently: 125 mcg DIRECTED. 6 days per week) ? Losartan Potassium 100 MG Oral Tab TAKE 1 TABLET BY MOUTH EVERY DAY ? Magnesium Cl-Calcium Carbonate (SLOW MAGNESIUM/CALCIUM PO) Take by mouth. ? meclizine (ANTIVERT) 12.5 MG Oral Tab Take 1 Tab by mouth THREE TIMES DAILY NEEDED for dizziness/vertigo. ? Multiple Vitamins-Minerals (MULTIVITAL PO) Take by mouth. ? nadolol (CORGARD) 20 MG Oral Tab Take 1 Tab by mouth DAILY. Extra 20 mg as needed ? oxybutynin (DITROPAN XL) 5 MG Oral TABLET SR 24 HR Take 1 Tab by mouth DAILY. ? polyethylene glycol (MIRALAX) Oral Powder Take 17 g by mouth TWICE DAILY. ? topiramate (TOPAMAX) 25 MG Oral Tab Take 50 mg by mouth EVERY EVENING. No current facility-administered medications for this visit. Allergies Allergen Reactions ? Biaxin [Clarithromycin] GI Reaction ? Macrodex [Dextran 70 In Saline] Other ? Sertraline Other Hand tremors, severe headaches, lethargy, facial numbness ? Toprol Xl [Metoprolol Succinate-Polysorbate 80] Musculoskeletal Arms ache Social History Socioeconomic History ? Marital status: Spouse name: Not on file ? Number of children: 2 ? Years of education: Not on file ? Highest education level: Not on file Occupational History ? Not on file Social Needs ? Financial resource strain: Not hard at all ? Food insecurity Worry: Never true Inability: Never true ? Transportation needs Medical: No Non-medical: No Tobacco Use ? Smoking status: Never Smoker ? Smokeless tobacco: Never Used Substance and Sexual Activity ? Alcohol use: No Alcohol/week: 0.0 standard drinks ? Drug use: No ? Sexual activity: Yes Partners: Male Lifestyle ? Physical activity Days per week: 3 days Minutes per session: 60 min ? Stress: Not at all Relationships ? Social connections Talks on phone: More than three times a week Gets together: Three times a week Attends congregation service: More than 4 times per year Active member of club or organization: Yes Attends meetings of clubs or organizations: More than 4 times per year Relationship status: ? Intimate partner violence Fear of current or ex partner: No Emotionally abused: No Physically abused: No Forced sexual activity: No Other Topics Concern ? Back Care Not Asked ? Bike Helmet Not Asked ? Blood Transfusions Not Asked ? Caffeine Concern Not Asked ? Exercise Not Asked ? Hobby Hazards Not Asked ? International Travel Not Asked ? Service Not Asked ? Occupational Exposure Not Asked ? Seat Belt Not Asked ? Self-Exams Not Asked ? Sleep Concern Not Asked ? Special Diet Not Asked ? Stress Concern Not Asked ? Weight Concern Not Asked Social History Narrative Lives at [place] with , cat in home. 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 Objective PHYSICAL EXAMINATION: VITALS: BP 120/80 | Pulse 66 | Temp 97.8 F (36.6 C) | Ht 5' 4" ( 1.626 m) | Wt 166 lb (75.3 kg) Comment: Stated by pt. | BMI 28.49 kg/m Body mass index is 28.49 kg/m. GENERAL: alert, oriented, no acute distress. HEENT: No scleral icterus, MMM Psych: Affect normal Neck: no lymphadenopathy LUNGS: clear to auscultation bilaterally. HEART: regular rhythm, no murmurs, no gallops, no rubs. ABDOMEN: general exam: soft, non-tender, non-distended, without masses or organomegaly, normal active bowel sounds, Tinoco's sign negative. Extrmities: no edema Skin: clear Neuro: gait normal, a&o x 3 RECTAL: exam deferred. IMPRESSION: ICD-9-CM ICD-10-CM 1. Gastroesophageal reflux disease, esophagitis presence not specified 530.81 K21.9 EGD (CHAMBERS / NON CHAMBERS) REFER TO GI 2. Globus sensation 306.4 R09.89 EGD (CHAMBERS / NON CHAMBERS) REFER TO GI Plan PLAN: Nonpharmacologic treatments were discussed including: eating smaller meals, elevation of the head of bed at night, avoidance of caffeine, chocolate, nicotine and peppermint, avoiding tight fitting clothing. Patient Instructions 1. Schedule upper endoscopy here in [place] 2. See dietary instruction below 3. Will hold on acid community center director for now, consider using Mylanta or Gaviscon for any recurrence of your symptoms 4. Follow up after the above Patient Education Acid Reflux and GERD in Adults Discharge Instructions About this topic GERD stands for gastroesophageal reflux disease. It is sometimes just called reflux. Normally, food goes from the mouth through the food pipe and then into the belly. The food pipe is also called the esophagus. This condition happens when the contents of the belly leak into the food pipe. This leakingcan irritate the food pipe. You may feel a burning pain in your chest called heartburn. You may haveburping, bloating, and belly pain after eating. GERD can be treated in many different ways. Sometimes, doctors use drugs or suggest changes in lifestyle. Other times, diet changes or surgery is needed. What care is needed at home? Ask your doctor what you need to do when you go home. Make sure you ask questions if you do notunderstand what the doctor says. This way you will know what you need to do. Maintain a healthy weight. Avoid stress. Avoid belts and clothes that are too tight. Eat small meals more often. Do not skip meals. Do not eat large meals to make up for missed meals. Avoid eating 2 to 3 hours before bedtime. Do not to lie down for at least 2 hours after eating. Raise the head of your bed 6 to 8 inches (15 to 20 cm). Use wooden blocks under the head of thebed. Just sleeping with your head raised on pillows is not enough. It can cause discomfort and make your signs worse. Do not drink beer, wine, and mixed drinks (alcohol). Do not smoke. What follow-up care is needed? Your doctor may ask you to make visits to the office to check on your progress. Be sure to keep these visits. What drugs may be needed? The doctor may order drugs to: Relieve heartburn Prevent reflux Lessen acid production Heal the esophageal lining Will physical activity be limited? Your physical activities will not be limited. What changes to diet are needed? Limit caffeine intake. Avoid eating oranges, berries, tomatoes, and other foods high in acid. Eat only small amounts of spicy, fatty, and fried foods, or avoid them altogether. Keep track of the foods that cause your signs to become worse. Avoid or limit these food items. What problems could happen? Asthma Precancerous changes in the food pipe Long-term cough Dental problems Higher risk of cancer of the food pipe. This is esophageal cancer. Narrowing of the food pipe. This is a stricture. Open sore in the food pipe. This is an ulcer. When do I need to call the doctor? Pain or a feeling of food getting stuck in your throat Frequent throwing up or throwing up fluid that looks like blood or coffee grounds Pain in the chest or upper part of the belly Very bad heartburn that lasts for a long time Cough, hoarseness of voice, or bad breath Wheezing, shortness of breath or other problems breathing Unintended weight loss or not wanting to eat You are not feeling better in 2 to 3 days or you are feeling worse Teach Back: Helping You Understand The Teach Back Method helps you understand the information we are giving you. The idea is simple. After talking with the staff, tell them in your own words what you were just told. This helps to make sure the staff has covered each thing clearly. It also helps to explain things that may have been a bit confusing. Before going home, make sure you are able to do these: I can tell you about my condition. I can tell you what changes I need to make with my eating habits to ease the reflux. I can tell you what I will do if I am throwing up fluid that looks like blood or coffee grounds. Where can I learn more? [employer] https://familydoctor.org/condition/refluxacid-reflux/ NHS Choices https://www.nhs.uk/conditions/vguwyodcw-ili-egdb-reflux/ Last Reviewed Date 2018-05-07 Consumer Information Use and Disclaimer This information is not specific medical advice and does not replace information you receive from your health care provider. This is only a brief summary of general information. It does NOT include allinformation about conditions, illnesses, injuries, tests, procedures, treatments, therapies, discharge instructions or life-style choices that may apply to you. You must talk with your health care provider for complete information about your health and treatment options. This information should not beused to decide whether or not to accept your health care provider?s advice, instructions or recommendations. Only your health care provider has the knowledge and training to provide advice that is right for you. Copyright Copyright 2019 [employer] and its affiliates and/or licensors. All rights reserved. Author: Yvonne Juárez NP 05/26/2019 13:53 documented in this encounter Plan of Treatment Date Type Specialty Care Team Description 05/30/2019 Office Visit Internal Medicine Leslie Khalil MD [address] [place], [place] [id number] 06/04/2019 GI Procedure Gastroenterology Juana Robert MD [address] [place] [address] [phone] 06/12/2019 Office Visit Gastroenterology Yvonne Juárez, CLINICAL DATA MANAGEMENT DIRECTOR [address] [place] [address] [phone] 06/13/2019 Office Visit [place] [address] [place] [address] 06/25/2019 Office Visit Cardiology Jordan Poole MD [address] [place], [place] [id number] Name Type Priority Associated Diagnoses Order Schedule EGD (CHAMBERS / NON Referral Routine Gastroesophageal reflux Expected: CHAMBERS) disease, esophagitis presence 05/26/2019, Expires: not specified 05/26/2020 Globus sensation REFER TO GI Referral Routine Gastroesophageal reflux Expected: disease, esophagitis presence 05/26/2019, Expires: not specified 05/26/2020 Globus sensation Health Maintenance Due Date Last Done Comments [...] Type Problems Progress Blood Pressure Blood Pressure 120/80 No Padmaja, < 150/90 (05/26/2019 CARMELA Valenzuela 1:11 PM EST) Note: This is an individualized [...] better. Weight loss vs. 18 mo Lifestyle 33 (05/26/2019 1:11 PM No Bianca Giang FNP max (lbs) [...] filedocumented in this encounter Visit Diagnoses Diagnosis Gastroesophageal reflux disease, esophagitis presence not specified Globus sensation Gastrointestinal malfunction arising from mental factors documented in this encounter Insurance Payer Benefit Plan / Subscriber ID Effective Dates Phone Address Type Group [employer] EX[employer]LLUS [id number] 2017-Present [employer]IC[employer] BLUE PPO ([phone]) documented as of this encounter
--- OUTSIDE RECORDS SUMMARY | 2019-06-23 19:36 | XMS REPORT | Summary of Care ---
:1950 Author Organization [facility] Address [address] [place] [address] Care Team Providers Name Role Phone Leslie Khalil Primary Care Provider Jordan Poole Unavailable Melly Gasca Unavailable [place] RN Unavailable Unavailable Reason for Referral Medication Prior Authorization (Routine) Status Reason Specialty Diagnoses / Referred By Referred To Procedures Contact Contact Pending Review Diagnoses SOB (shortness of breath) Leslie Khalil MD [address] [place] [id number] Reason for Visit Reason Comments Sick cough, wheezing, chest congestion - not coming up with cough, not sleeping x 10 days Encounter Details Date Type Department Care Team Description 06/16/2019 Office Visit [place] Internal Leslie Khalil MD Acute pharyngitis due to other specified organisms (Primary Dx); Medicine [address] [facility] SOB (shortness of breath); [address] [place] [address] Acute bronchitis, [place] [address] [phone] Allergies Active Allergy Reactions Severity Noted Date Comments Clarithromycin GI Reaction 01/16/2014 Dextran 70 In Saline Other 04/25/2010 Sertraline Other 05/26/2019 Hand tremors, severe headaches, lethargy, facial numbness Metoprolol Musculoskeletal 02/26/2013 Arms ache Succinate-Polysorbate 80 Zoloft LUGGAGE REPAIRER Reaction 05/30/2019 Tremor, fatigue , movment disorder documented as of this encounter (statuses as of 06/16/2019) Medications Medication Sig Dispensed Refills Start Date End Date Status Multiple Take by mouth. 0 Active Vitamins-Minerals (MULTIVITAL PO) Bisacodyl (DULCOLAX Place per rectum 0 Active [...] 1:15 PM fluticasone (FLONASE) USE TWO SPRAYS IN 3 [...] MG Oral mouth DAILY. Tab topiramate (TOPAMAX) Take 50 mg by 0 12/19/2018 Active 25 MG Oral Tab mouth TWICE DAILY. oxybutynin (DITROPAN Take 1 Tab by 90 Tab 1 01/22/2019 Active XL) 5 MG Oral TABLET mouth DAILY. SR 24 HRIndications: Urge incontinence amLodipine (NORVASC) Take 1 Tab by 90 Tab 3 03/03/2019 Active 10 MG Oral mouth DAILY. TabIndications: Essential hypertension Cholecalciferol Take 5,000 Units 0 Active (VITAMIN D3) 125 MCG by mouth DAILY. (5000 UT) Oral Cap ALPRAZolam (XANAX) Take 1 Tab by 30 Tab 0 03/13/2019 Active 0.5 MG Oral mouth THREE TIMES TabIndications: DAILY NEEDED Anxiety (anxiety). Max Daily Amount: 1.5 mg. meclizine (ANTIVERT) Take 1 Tab by 30 Tab 0 05/05/2019 Active 12.5 MG Oral Tab mouth THREE TIMES DAILY NEEDED for dizziness/vertigo . Lancets Does not TEST BLOOD SUGAR 200 Each 4 05/28/2019 Active apply TWO TIMES DAILY MiscIndications: Elevated blood sugar Glucose Blood In 1 Each by 200 Strip 3 06/03/2019 Active Vitro Intradermal route StripIndications: TWICE DAILY. Elevated blood sugar Omeprazole delayed TAKE 1 CAPSULE BY 180 Cap 1 06/09/2019 Active rel cap 20 MG Oral MOUTH TWICE DAILY CAPSULE DELAYED RELEASE albuterol HFA Take 2 Puffs by 18 g 5 06/16/2019 Active (VENTOLIN HFA) 108 inhalation EVERY (90 Base) MCG/ACT FOUR HOURS Inhalation Aero NEEDED (sob). SolnIndications: SOB (shortness of breath) guaiFENesin-codeine Take 5 mL by 236 mL 0 06/16/2019 Active (ROBITUSSIN AC) mouth EVERY SIX 100-10 MG/5ML Oral HOURS NEEDED SolutionIndications: (cough). Max SOB (shortness of Daily Amount: 20 breath) mL. amoxicillin (AMOXIL, Take 1 Tab by 20 Tab 0 06/16/2019 Active POLYMOX, TRIMOX) 875 mouth TWICE MG Oral DAILY. TabIndications: Acute bronchitis, unspecified organism albuterol HFA Take 2 Puffs by 18 g 5 04/23/2018 (VENTOLIN HFA) 108 inhalation EVERY 2019 (Reorder) (90 Base) MCG/ACT FOUR HOURS Inhalation Aero NEEDED (sob). SolnIndications: SOB (shortness of breath) documented as of this encounter (statuses as of 06/16/2019) Active Problems Problem Noted Date Seizure disorder 03/13/2019 Cerebrovascular accident (CVA) 07/25/2018 Other forms of angina pectoris 07/22/2018 TIA (transient ischemic attack) 07/19/2018 Overview: [place]- 07/17/18- Ultrasound shows 78% block Bilateral dry [...] 03/08/2011 Overview: Vaginal discharge - following with parish nurse S/P ADRIANO (total abdominal hysterectomy) 11/10/2010 Overview: [...] as of this encounter (statuses as of 06/16/2019) Resolved Problems Problem Noted Date Resolved Date Type 2 diabetes mellitus without complication, without 07/22/2018 09/03/2018 long-term current use of insulin Unspecified sinusitis (chronic) 02/03/2010 01/16/2014 Overview: Getting allergy shots 2 sinus surgeries- Dr Batista- [id number] documented as of this encounter (statuses as of 06/16/2019) Immunizations Name Administration Dates Next Due Influenza [...] or relatives? How often do you attend islam or More than 4 times per year 03/20/2018 taoism services? Do you belong to any clubs or Yes 03/20/2018 organizations such as islam groups, unions, fraternal or athletic groups, or [...] Sign Reading Time Taken Comments Blood Pressure 134/82 06/16/2019 2:48 PM EDT Pulse 66 06/16/2019 2:48 PM EDT Temperature 36.9 06/16/2019 2:48 PM EDT C (98.4 F) Respiratory Rate - - Oxygen Saturation 96% 06/16/2019 2:48 PM EDT Inhaled Oxygen Concentration - - Weight 75.4 kg (166 lb 3.2 oz) 06/16/2019 2:48 PM EDT Height 162.6 cm (5' 4") 06/16/2019 2:48 PM EDT Body Mass Index 28.53 06/16/2019 2:48 PM EDT documented in this encounter Progress Notes Leslie Khalil MD - 06/16/2019 2:40 PM EDT NAME:Krupa Pendleton 1950: 1950 ENC Date: 06/16/2019 CC: Chief Complaint Patient presents with ? Sick cough, wheezing, chest congestion - not coming up with cough, not sleeping x 10 days Krupa Pendleton is a 69-y.o. female Was hospitalized chest pain / esophageal spasm? - Had follow up endoscopy - - it was feared had barretts but just esopaagitis Sore throat - post nasal drip - Was evualuated by Dr Xie and most recently status post upper endoscopy with Dr Robert Has not been able to sleep last 2 nights- No fever or chills - Has been sick 10 days Feeling sick - Thick mucus in the back of the throat - Current Outpatient Medications Medication Sig ? albuterol HFA (VENTOLIN HFA) 108 (90 Base) MCG/ACT Inhalation Aero Soln Take 2 Puffs by inhalation EVERY FOUR HOURS NEEDED (sob). ? ALPRAZolam (XANAX) 0.5 MG Oral Tab Take 1 Tab by mouth THREE TIMES DAILY NEEDED (anxiety). Max Daily Amount: 1.5 mg. ? amLodipine (NORVASC) 10 MG Oral Tab Take 1 Tab by mouth DAILY. ? amoxicillin (AMOXIL, POLYMOX, TRIMOX) 875 MG Oral Tab Take 1 Tab by mouth TWICE DAILY. ? Aspirin 81 MG Oral Tab [...] DAY ? Glucose Blood In Vitro Strip 1 Each by Intradermal route TWICE DAILY. ? guaiFENesin-codeine (ROBITUSSIN AC) 100-10 MG/5ML Oral Solution Take 5 mL by mouth EVERY SIXHOURS NEEDED (cough). Max Daily Amount: 20 mL. ? Lancet Devices (AUTOLET PLUS) Does not apply Misc 1 Each by Does not apply route TWICE DAILY. ? Lancets Does not apply Misc TEST BLOOD SUGAR TWO TIMES DAILY ? levetiracetam (KEPPRA) 500 [...] DAILY. Extra 20 mg as needed ? Omeprazole delayed rel cap 20 MG Oral CAPSULE DELAYED RELEASE TAKE 1 CAPSULE BY MOUTH TWICE DAILY ? oxybutynin (DITROPAN XL) 5 MG Oral TABLET SR 24 HR Take 1 Tab by mouth DAILY. ? polyethylene glycol (MIRALAX) Oral Powder Take 17 g by mouth TWICE DAILY. ? topiramate (TOPAMAX) 25 MG Oral Tab Take 50 mg by mouth TWICE DAILY. No current facility-administered medications for this visit. Patient Active Problem List Diagnosis Date Noted ? Seizure disorder (HCC) 03/13/2019 ? Cerebrovascular accident (CVA) (HCC) 07/25/2018 ? Other forms of angina pectoris (HCC) 07/22/2018 ? TIA (transient ischemic attack) 07/19/2018 [place]- 07/17/18- Ultrasound shows 78% block ? Bilateral dry eyes 03/07/2016 ? Midline low back pain with right-sided sciatica 05/17/2015 ? Chronic low back pain 04/17/2014 ? Dermatitis due to plants, including poison anthony, sumac, and oak 2013 ? Elbow pain 03/06/2013 ? Lipid disorder 02/19/201302/12 blood work shows basic untreated cholesterol ? Chronic nonallergic rhinitis 06/21/2012 ? SHELTON on CPAP 02/20/2012 ? BMI 29.0-29.9,adult 08/04/2011 ? Zoonotic bacterial disease 03/08/2011 Vaginal discharge - following with parish nurse ? S/P ADRIANO (total abdominal hysterectomy) 11/10/2010 Ovaries remain- no cervix 1976 ? Fatty liver 02/10/2010 ? Hypothyroid 02/10/2010 112mcg - tsh 6. Repeat TSH in 2 months - ? Mixed hyperlipidemia 02/03/2010 ? History of thyroidectomy 02/03/2010 ? 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 GERD (gastroesophageal reflux disease) 02/03/2010 ? Constipation 02/03/2010 Upper endoscopy , CT-scan of the abdomen - Dr Vergara 12/10 Colon- 04/09 Screening colon 05/15 - normal repeat in [address] Vergara ? Chest pain 02/03/2010 Nuclear stress test-[address] Lainez; 2005 ekg 07/10 Cath ~ 1999- [place]- Told normal Family History Problem Relation Age of Onset [...] ? High Cholesterol Son ? Alcohol/Drug Son No cardiopulmonary symptoms No upper or lower GI complaints No urinary tract symptoms. No bruising/ bleeding. No neurological complaints . No insomnia.+ . Social History Tobacco Use ? Smoking status: Never Smoker ? Smokeless tobacco: Never Used Substance Use Topics ? Alcohol use: No Alcohol/week: 0.0 standard drinks ? Drug use: No OBJECTIVE: BP 134/82 | Pulse 66 | Temp 98.4 F (36.9 C) | Ht 5' 4" (1.626 m) | Wt 166 lb 3.2 oz (75.4 kg) | SpO2 96% | BMI 28.53 kg/m . Heent neg Neck no JVD, thyromegaly or bruit Lungs Clear CV rrr Abd soft, nontender, no organomegaly Ext no edema; no lesions; pulses intact Neuro: intellect intact ; motor including gait unremarkable A/P ICD-9-CM ICD-10-CM 1. Acute pharyngitis due to other specified organisms 462 J02.8 2. SOB (shortness of breath) 786.05 R06.02 albuterol HFA (VENTOLIN HFA) 108 ( 90 Base) MCG/ACT Inhalation Aero Soln guaiFENesin-codeine (ROBITUSSIN AC) 100-10 MG/5ML Oral Solution 3. Acute bronchitis, unspecified organism 466.0 J20.9 amoxicillin (AMOXIL, POLYMOX, TRIMOX) 875 MG Oral Tab There are no Patient Instructions on file for this visit. AUTHOR: Leslie Khalil MD 15:26 06/16/2019 documented in this encounter Plan of Treatment Date Type Specialty Care Team Description 06/23/2019 Office Visit Internal Medicine Leslie Khalil MD [address] [place] [address] 06/25/2019 Office Visit Cardiology Jordan Poole MD [address] [place] [address] 09/09/2019 GI Procedure Gastroenterology Juana Robert MD [address] [place] [address] Health Maintenance Due Date Last Done Comments CT Colonography 1950 FIT-DNA 1950 FIT/FOBT 1950 Sigmoidoscopy 1950 LIPID DISORDER SCREENING 12/14/2019 12/13/2018, 10/02/2018, 03/08/2018, Additional history exists DIABETES SCREENING 01/02/2020 01/01/2019, 10/02/2018, 10/02/2018, Additional history exists DEPRESSION SCREENING 03/13/2020 03/13/2019, 03/13/2019 FALL RISK ASSESSMENT 03/13/2020 03/13/2019, 03/13/2019 MAMMOGRAM (SCREENING) 03/13/2020 03/13/2019, 03/12/2018, 03/08/2017, Additional history exists ZOSTER IMMUNIZATION SERIES 03/13/2020 04/25/2013 Postponed from (2 of 3) 06/20/2013 (Vaccine not available) MEDICARE ANNUAL WELLNESS 05/30/2020 03/20/2018, 03/07/2016, Postponed from VISIT 03/04/2015 03/20/2019 (Other) Colonoscopy 01/16/2022 01/16/2019, 01/16/2019, 06/18/2018, Additional history exists Colorectal Cancer Screening 01/16/2022 DTaP/Tdap/Td Vaccines (2 - 12/10/2024 12/10/2014 Tdap) [...] Type Problems Progress Blood Pressure Blood Pressure 134/82 No Padmaja, < 150/90 (06/16/2019 CARMELA Valenzuela 2:48 PM EDT) Note: This is an individualized [...] better. Weight loss vs. 18 mo Lifestyle 32.8 (06/16/2019 2:48 PM No Bianca Giang FNP max (lbs) [...] filedocumented in this encounter Visit Diagnoses Diagnosis Acute pharyngitis due to other specified organisms SOB (shortness of breath) Shortness of breath Acute bronchitis, unspecified organism documented in this encounter Insurance Payer Benefit Plan / Subscriber ID Effective Dates Phone Address Type Group [employer] EXCELLUS [id number] 2017-Present [employer] MEDIC[employer] BLUE PPO ([phone]) documented as of this encounter
--- OUTSIDE RECORDS SUMMARY | 2019-06-23 19:36 | XMS REPORT | Continuity of Care Document ---
:1950 External Reference #:[id number] Author Name Oli Joseph DO FACC (transmitted by agent of provider Myra Clemens) Address [address] [place] [address] Care Team Providers Name Role Phone Leslie Khalil MD - Internal Medicine Care Team Information Control System Computer Scientist Problems Active Problems Provider Date Peripheral tear of medial meniscus, current Dylon Nunes M.D. Onset: 2016 injury, left knee, subsequent encounter Other tear of lateral meniscus, current Dylon Nunes M.D. Onset: 09/18/2016 injury, left knee, subsequent encounter Chest pain Owen Dukes N.P. Onset: 10/18/2017 Palpitations Owen Dukes N.P. Onset: 10/18/2017 Essential hypertension Silvia Nicholas NP Onset: 10/19/2017 Hyperlipidemia Silvia Nicholas NP Onset: 10/20/2017 Hypokalemia Silvia Nicholas NP Onset: 10/20/2017 Social History Type Date Description Comments Sex Unknown ETOH Use Denies alcohol use Tobacco Use Start: Unknown Patient has never smoked Smoking Status Reviewed: 12/04/18 Patient has never smoked Exercise Type/Frequency Exercises sporadically Allergies, Adverse Reactions, Alerts Active Allergies Reaction Severity Comments Date Macrodantin 07/12/2016 Medications Active Medications SIG Qnty Indications Ordering Date Provider Wrist Splint use nightly 2units R20.8 Keyshawn Mckee, 12/31/2017 Misc for right and M.D. left wrist r20.8 Synthroid 1 by mouth Unknown 0.112mcg Tablets every day Atorvastatin Calcium take 1 tablet Unknown 20mg Tablets at bedtime Amlodipine Besylate 1 by mouth Unknown 10mg Tablets every day Hydrochlorothiazide 1 by mouth Unknown 12.5mg every day Capsules Aspirin Adult Low Dose 1 by mouth Unknown 81mg every day Tablets DR Multi Complete daily Unknown Capsules Vitamin D High Potency 2 tab daily Unknown 1000Unit Capsules Nadolol Take 1 Tablet Unknown 20mg Tablets By Mouth Every Day Metformin HCL ER Take 1 Tablet Unknown 500mg Tablets ER By Mouth Every 24HR 24 Hours Oxybutynin Chloride ER Take 1 Tablet Unknown 10mg By Mouth Every Tablets ER 24HR Day Losartan Potassium Take 1 Tablet Unknown 100mg Tablets By Mouth Every Day Levetiracetam Take 1/2 Unknown 500mg Tablets Tablet By Mouth Twice A Day For 1 Week, Then Take 1 Tablet By Mouth Two Times Daily Medications Administered in Office Medication SIG Qnty Indications Ordering Provider Date Depomedrol 40MG Benita Nelson M.D. 12/04/2018 Injection Depomedrol 40MG Dylon Nunes M.D. 07/17/2016 Injection Technetium TC 99M Jamison Lainez M.D., [facility], 06/11/2012 Tetrofosmin, Per Unit Dose FSCAI Up To 40 Millicuries Injection Immunizations CPT Code Status Date Vaccine Reaction Lot # 31841 Given 02/01/2018 Influenza Virus Vaccine, no immediate reaction [id number] Quadrivalent, Split, noted Preservative Free Vital Signs Date Vital Result Comment 12/04/2018 10:14am Height 64 inches 5'4" Weight 171.00 lb BP Systolic 110 mmHg BP Diastolic 64 mmHg Body Temperature 97.5 F Pain Level 0 BMI (Body Mass Index) 29.3 kg/m2 02/19/2018 1:52pm Height 64 inches 5'4" Weight 189.25 lb Heart Rate 60 /min BP Systolic Sitting 122 mmHg Lue regular cuff BP Diastolic Sitting 82 mmHg Lue regular cuff Respiratory Rate 12 /min O2 % BldC Oximetry 97 % BMI (Body Mass Index) 32.5 kg/m2 Neck Circumference in inches 16 Results Description No Information Available Procedures Date Code Description Status 05/23/2019 79759 Treadmill Interp/Report Only Completed 05/23/2019 44362 Stress Test Supervsn W/Out I/R Completed Medical Devices Description No Information Available Encounters Type Date Location Provider Dx Diagnosis Office Visit 05/23/2019 [facility] Paris Bright, CONNECTION WORKER R07.9 Chest pain, 9:33a Assoc,pc unspecified Hospitalists I10 Essential (primary) hypertension E03.9 Hypothyroidism, unspecified G40.909 Epilepsy, unsp, not intractable, without status epilepticus Office Visit 05/22/2019 [facility] Tyesha R07.9 Chest pain, 9:32a Assoc,pc [place] unspecified Hospitalists I10 Essential (primary) hypertension G40.909 Epilepsy, unsp, not intractable, without status epilepticus E03.9 Hypothyroidism, unspecified Assessments Date Code Description Provider 05/23/2019 R07.9 Chest pain, unspecified Oli Joseph DO [facility] 05/23/2019 R07.9 Chest pain, unspecified [place] Bright, CONNECTION WORKER 05/23/2019 I10 Essential (primary) hypertension [place] Bright, CONNECTION WORKER 05/23/2019 E03.9 Hypothyroidism, unspecified [place] Bright, CONNECTION WORKER 05/23/2019 G40.909 Epilepsy, unspecified, not intractable, [place] Bright, CONNECTION WORKER without status epilepticus 05/22/2019 R07.9 Chest pain, unspecified [place] Avilez 05/22/2019 I10 Essential (primary) hypertension [place] Av[place]z 05/22/2019 G40.909 Epilepsy, unspecified, not intractable, MI[place] Avilez without status epilepticus 05/22/2019 E03.9 Hypothyroidism, unspecified [place] Av[place]z Plan of Treatment 12/04/2018 - Benita Nelson M.D.M65.312 Trigger thumb, left thumbFollow up: Follow up: As needed Functional Status Description No Information Available Mental Status Description No Information Available Referrals Description No Information Available
--- OUTSIDE RECORDS SUMMARY | 2019-06-23 19:36 | XMS REPORT | Continuity of Care Document ---
:1950 External Reference #:[id number] Author Name Paris Novoa NP (transmitted by agent of provider Kylah Martínez) Address [address] [place] [address] Care Team Providers Name Role Phone Leslie Khalil MD - Internal Medicine Care Team Information Telesales Consultant Problems Active Problems Provider Date Peripheral tear of medial meniscus, current Dylon Nunes M.D. Onset: 2016 injury, left knee, subsequent encounter Other tear of lateral meniscus, current Dylon Nunes M.D. Onset: 09/18/2016 injury, left knee, subsequent encounter Chest pain Owen Dukes NRowdy Onset: 10/18/2017 Palpitations Owen Dukes N.P. Onset: [...] Injection Technetium TC 99M Jamison Lainez M.D., [facility], 06/11/2012 Tetrofosmin, Per Unit Dose FSCAI Up To 40 Millicuries Injection Immunizations CPT Code Status Date Vaccine Reaction Lot # [id number] Given 02/01/2018 Influenza Virus Vaccine, no immediate [...] Available Procedures Date Code Description Status 05/23/2019 91058 Treadmill Interp/Report Only Completed 05/23/2019 13741 Stress Test Supervsn W/Out I/R Completed Medical Devices Description No Information Available Encounters Type Date Location Provider Dx Diagnosis Office Visit 05/23/2019 [facility] Paris Bright, RAILWAY SHUNTER R07.9 Chest pain, 9:33a Assoc,pc unspecified Hospitalists I10 Essential (primary) hypertension E03.9 Hypothyroidism, unspecified G40.909 Epilepsy, unsp, not intractable, without status epilepticus Office Visit 05/22/2019 [facility] Tyesha R07.9 Chest pain, 9:32a Assoc,pc [place] Koch unspecified Hospitalists I10 Essential (primary) hypertension G40.909 Epilepsy, unsp, not intractable, without status epilepticus E03.9 Hypothyroidism, unspecified Assessments Date Code Description Provider 05/23/2019 R07.9 Chest pain, unspecified [place] Bright, RAILWAY SHUNTER 05/23/2019 I10 Essential (primary) hypertension [place] Bright, RAILWAY SHUNTER 05/23/2019 E03.9 Hypothyroidism, unspecified [place] Bright, RAILWAY SHUNTER 05/23/2019 G40.909 Epilepsy, unspecified, not intractable, [place] Bright, RAILWAY SHUNTER without status epilepticus 05/22/2019 R07.9 Chest pain, [...]
--- OUTSIDE RECORDS SUMMARY | 2019-06-23 19:36 | XMS REPORT | Summary of Care ---
:1950 Author Organization [facility] Address 1 [facility] [place] [address] Care Team Providers Name Role Phone Reglanehemiahramona Leslie Primary Care Provider Jordan Poole Unavailable Melly Gasca Unavailable Mine Heath RN Unavailable Unavailable Reason for Visit Reason Comments Follow-up Follow-up to recent EGD. Encounter Details Date Type Department Care Team Description 06/09/2019 Office Visit Hola Juárez, GERD with esophagitis Gastroenterology/Hepa Yvonne Lenz NP (Primary Dx) tology 1 [facility] [address] [facility] [place] [address] [place] [address] Allergies Active Allergy Reactions Severity Noted Date Comments Clarithromycin GI Reaction 01/16/2014 Dextran 70 In Saline Other 04/25/2010 Sertraline Other 05/26/2019 Hand tremors, severe headaches, lethargy, facial numbness Metoprolol Musculoskeletal 02/26/2013 Arms ache Succinate-Polysorbate 80 Zoloft PROCESS MECHANIC Reaction 05/30/2019 Tremor, fatigue , movment disorder documented as of this encounter (statuses as of 06/09/2019) Medications Medication Sig Dispensed Refills Start Date [...] 11/25/2018 Active 50 MCG/ACT Nasal EACH NOSTRIL EVERY Suspension DAY Aspirin 81 MG Oral Tab Take 81 mg by mouth 0 Active DAILY. levetiracetam (KEPPRA) Take 500 mg by 0 Active 500 MG Oral Tab mouth TWICE DAILY. nadolol (CORGARD) 20 MG Take 1 Tab by mouth 135 Tab 3 12/13/2018 Active Oral TabIndications: DAILY. Extra 20 mg Ventricular arrhythmia as needed atorvastatin (LIPITOR) Take 1 Tab by mouth 90 Tab 3 12/13/2018 Active 40 MG Oral Tab DAILY. topiramate (TOPAMAX) 25 Take 50 mg by mouth 0 12/19/2018 Active MG Oral Tab TWICE DAILY. oxybutynin (DITROPAN Take 1 Tab by mouth 90 Tab 1 01/22/2019 Active XL) 5 MG Oral TABLET SR DAILY. 24 HRIndications: Urge incontinence amLodipine (NORVASC) 10 Take 1 Tab by mouth 90 Tab 3 03/03/2019 Active MG Oral TabIndications: DAILY. Essential hypertension Cholecalciferol Take 5,000 Units by 0 Active (VITAMIN D3) 125 MCG mouth DAILY. (5000 UT) Oral Cap ALPRAZolam (XANAX) 0.5 Take 1 Tab by mouth 30 Tab 0 03/13/2019 Active MG Oral TabIndications: THREE TIMES DAILY Anxiety NEEDED (anxiety). Max Daily Amount: 1.5 mg. meclizine (ANTIVERT) Take 1 Tab by mouth 30 Tab 0 05/05/2019 Active 12.5 MG Oral Tab THREE TIMES DAILY NEEDED for dizziness/vertigo. Lancets Does not apply TEST BLOOD SUGAR 200 Each 4 05/28/2019 Active MiscIndications: TWO TIMES DAILY Elevated blood sugar Glucose Blood In Vitro 1 Each by 200 Strip 3 06/03/2019 Active StripIndications: Intradermal route Elevated blood sugar TWICE DAILY. Omeprazole delayed rel Take 1 Cap by mouth 60 Cap 5 06/09/2019 Discontinued cap 20 MG Oral CAPSULE TWICE DAILY. 020 DELAYED RELEASE documented as of this encounter (statuses as of 06/09/2019) Active Problems Problem Noted Date Seizure disorder [...] 03/08/2011 Overview: Vaginal discharge - following with manager night S/P ADRIANO (total abdominal hysterectomy) 11/10/2010 Overview: [...] as of this encounter (statuses as of 06/09/2019) Resolved Problems Problem Noted Date Resolved Date Type 2 diabetes mellitus without complication, without 07/22/2018 09/03/2018 long-term current use of insulin Unspecified sinusitis (chronic) 02/03/2010 01/16/2014 Overview: Getting allergy shots 2 sinus surgeries- Dr Batista- [id number] documented as of this encounter (statuses as of 06/09/2019) Immunizations Name Administration Dates Next Due Influenza [...] or relatives? How often do you attend protestant or More than 4 times per year 03/20/2018 rastafarian services? Do you belong to any clubs or Yes 03/20/2018 organizations such as protestant groups, unions, fraternal or athletic groups, or [...] Sign Reading Time Taken Comments Blood Pressure 116/78 06/09/2019 1:15 PM EDT Pulse 72 06/09/2019 1:15 PM EDT Temperature 36.4 06/09/2019 1:15 PM C (97.6 EDT F) Respiratory Rate - - Oxygen Saturation - - Inhaled Oxygen Concentration - - Weight 75.3 kg (166 lb) 06/09/2019 1:15 PM Stated by pt. EDT Height 162.6 cm (5' 4") 06/09/2019 1:15 PM EDT Body Mass Index 28.49 06/09/2019 1:15 PM EDT documented in this encounter Patient Instructions Patient InstructionsYvonne Juárez NP - 06/09/2019 2:40 PM EDT1. Continue Omeprazole 20mg twice daily on an empty stomach 2. Have Mylanta or Gaviscon to use as needed 3. Follow up after the next endoscopy If you have not already been screened for Hepatitis C we would be happy to do that for you today. Currently we recommend screening for hepatitis C virus (HCV ) infection in persons at high risk for infection, and to adults born between 1945 and 1965. Thank you for choosing the [facility] for your needs today! -Yvonne Juárez N.P. , Please call if you need to cancel or change your appt. time. Thank you for choosing [facility] for your health care needs, and for consulting with [facility] today. You may receive a survey following [...] encounter Progress Notes Yvonne Juárez NP - 06/09/2019 2:40 PM EDT PATIENT: Krupa Pendleton : 1950 DATE OF SERVICE: 06/09/2019 REFERRING PRACTITIONER: Leslie Khalil PRIMARY CARE PROVIDER: Leslie Khalil CHIEF COMPLAINT: Chief Complaint Patient presents with ? Follow-up Follow-up to recent EGD. Subjective HISTORY OF PRESENT ILLNESS: Krupa Pendleton is an 69-y.o. female who presents for a follow-up visit with gastroesophageal reflux. Recent EGD positive for reflux esophagitis and gastropathy. Recently restarted a PPI, is currently taking once daily 40mg Omeprazole, wishes to switch to 20mg BID. She denies dysphagia. She has not lost weight. She denies melena, hematochezia, hematemesis, and coffee ground emesis. She has not had any recurrence of her mid sternal CP. Current Outpatient Medications Medication Sig ? albuterol [...] Each by Intradermal route TWICE DAILY. ? Lancet Devices (AUTOLET PLUS) Does not [...] Xl [Metoprolol Succinate-Polysorbate 80] Musculoskeletal Arms ache ? Zoloft PROCESS MECHANIC Reaction Tremor, fatigue , movment disorder REVIEW OF SYSTEMS: All remaining review of systems was negative except for as noted in the history of present illness/subjective. Objective OBJECTIVE: VITALS: BP 116/78 | Pulse 72 | Temp 97.6 F (36.4 C) | Ht 5' 4" ( 1.626 [...] RECTAL: exam deferred. IMPRESSION: ICD-9-CM ICD-10-CM 1. GERD with esophagitis 530.11 K21.0 Gastroesophageal reflux disease, needs further observation. Plan PLAN: Patient Instructions 1. Continue Omeprazole 20mg twice daily on an empty stomach 2. Have Mylanta or Gaviscon to use as needed 3. Follow up after the next endoscopy If you have not already been screened for Hepatitis C we would be happy to do that for you today. Currently we recommend screening for hepatitis C virus (HCV ) infection in persons at high risk for infection, and to adults born between 1945 and 1965. Thank you for choosing the [facility] for your needs today! -Yvonne Juárez N.P. , Please call if you need to cancel or change your appt. time. Thank you for choosing [facility] for your health care needs, and for consulting with [facility] today. You may receive a survey following [...] minutes to complete. Author: Yvonne Juárez NP 06/09/2019 14:42 documented in this encounter Plan of Treatment Date Type Specialty Care Team Description 06/25/2019 Office Visit Cardiology Jordan Poole MD [address] [place] [address] 09/09/2019 GI Procedure Gastroenterology Juana Robert MD [address] [place] [address] [phone] Health Maintenance Due Date Last Done Comments LIPID DISORDER SCREENING 12/14/2019 12/13/2018, 10/02/2018, 03/08/2018, [...] Type Problems Progress Blood Pressure Blood Pressure 116/78 No Padmaja, < 150/90 (06/09/2019 CARMELA Valenzuela 1:15 PM EDT) Note: This is an individualized [...] Weight loss vs. 18 mo Lifestyle 33 (06/09/2019 1:15 PM No Bianca Giang FNP max (lbs) [...] filedocumented in this encounter Visit Diagnoses Diagnosis GERD with esophagitis documented in this encounter Insurance Payer Benefit Plan / Subscriber ID Effective Dates Phone Address Type Group [employer] MEDICARE EXCELL [id number] 2017-Present [employer] ADVANTAGE MEDICARE BLUE PPO ([phone]) documented as of this encounter
--- OUTSIDE RECORDS SUMMARY | 2019-06-23 19:36 | XMS REPORT | Summary of Care ---
:1950 Author Organization [facility] Address [address] [place] [address] Care Team Providers Name Role Phone Leslie Khalil Primary Care Provider Jordan Poole Unavailable Melly Gasca Unavailable Mine Heath RN Unavailable Unavailable Reason for Visit Reason Comments Transitional Care Management chest pain (allergic reaction to Zoloft) Hypothyroidism Hyperlipidemia Encounter Details Date Type Department Care Team Description 05/30/2019 Office Visit [place] [facility] Leslie Khalil MD Atypical chest pain (Primary Dx); Medicine [address] Essential hypertension; [address] [place] [address] Thyroid disorder; [place] [address] Elevated blood sugar; [phone] Tremor Allergies Active Allergy Reactions Severity Noted Date Comments Clarithromycin GI Reaction 01/16/2014 Dextran 70 In Saline Other 04/25/2010 Sertraline Other 05/26/2019 Hand tremors, severe headaches, lethargy, facial numbness Metoprolol Musculoskeletal 02/26/2013 Arms ache Succinate-Polysorbate 80 Zoloft STATION ENGINEER MAIN LINE Reaction 05/30/2019 Tremor, fatigue , movment disorder documented as of this encounter (statuses as of 05/30/2019) Medications Medication Sig Dispensed Refills Start Date [...] Reported on 05/26/2019 1:15 PM fluticasone (FLONASE) 50 USE TWO SPRAYS IN EACH 3 Bottle 5 11/25/2018 Active MCG/ACT Nasal Suspension NOSTRIL EVERY DAY Aspirin 81 MG Oral Tab Take 81 mg by mouth 0 Active DAILY. levetiracetam (KEPPRA) 500 MG Take 500 mg by mouth 0 Active Oral Tab TWICE DAILY. nadolol (CORGARD) 20 MG Oral Take 1 Tab by mouth 135 Tab 3 12/13/2018 Active TabIndications: Ventricular DAILY. Extra 20 mg as arrhythmia needed atorvastatin (LIPITOR) 40 MG Take 1 Tab by mouth 90 Tab 3 12/13/2018 Active Oral Tab DAILY. topiramate (TOPAMAX) 25 MG Oral Take 50 mg by mouth 0 12/19/2018 Active Tab EVERY EVENING. oxybutynin (DITROPAN XL) 5 MG Take 1 Tab by mouth 90 Tab 1 01/22/2019 Active Oral TABLET SR 24 DAILY. HRIndications: Urge incontinence Glucose Blood In Vitro TEST TWO TIMES DAILY 200 Strip 0 02/19/2019 Active StripIndications: Elevated blood sugar amLodipine (NORVASC) 10 MG Oral Take 1 Tab by mouth 90 Tab 3 03/03/2019 Active TabIndications: Essential DAILY. hypertension Cholecalciferol (VITAMIN D3) Take 5,000 Units by 0 Active 125 MCG (5000 UT) Oral Cap mouth DAILY. ALPRAZolam (XANAX) 0.5 MG Oral Take 1 Tab by mouth 30 Tab 0 03/13/2019 Active TabIndications: Anxiety THREE TIMES DAILY NEEDED (anxiety). Max Daily Amount: 1.5 mg. meclizine (ANTIVERT) 12.5 MG Take 1 Tab by mouth 30 Tab 0 05/05/2019 Active Oral Tab THREE TIMES DAILY NEEDED for dizziness/vertigo. Lancets Does not apply TEST BLOOD SUGAR TWO 200 Each 4 05/28/2019 Active MiscIndications: Elevated blood TIMES DAILY sugar documented as of this encounter (statuses as of 05/30/2019) Active Problems Problem Noted Date Seizure disorder 03/13/2019 Cerebrovascular accident (CVA) 07/25/2018 Other forms of angina pectoris 07/22/2018 TIA (transient ischemic attack) 07/19/2018 Overview: [place]- 07/17/18- Ultrasound shows 78% block Bilateral dry [...] 03/08/2011 Overview: Vaginal discharge - following with cooker helper S/P ADRIANO (total abdominal hysterectomy) 11/10/2010 Overview: [...] , CT-scan of the abdomen - Dr Vregara 12/10 Colon- 04/09 Screening colon 05/15 - normal repeat in [address] Vergara Chest pain 02/03/2010 Overview: Nuclear stress test-[address] Lainez; 2005 ekg 07/10 Cath ~ 2000- [place]- Told normal documented as of this encounter (statuses as of 05/30/2019) Resolved Problems Problem Noted Date Resolved Date Type 2 diabetes mellitus without complication, without 07/22/2018 09/03/2018 long-term current use of insulin Unspecified sinusitis (chronic) 02/03/2010 01/16/2014 Overview: Getting allergy shots 2 sinus surgeries- Dr Batista- [id number] documented as of this encounter (statuses as of 05/30/2019) Immunizations Name Administration Dates Next Due Influenza (IM) Preservative Free 01/19/2019, 12/09/2015, 02/15/2015, 01/05/2014, 2013, 04/23/2012 Influenza Vaccine High Dose 02/20/2018 PNEUMOCOCCAL POLYSACCHARIDE VACCINE 09/11/2017, 03/23/2015 Pneumococcal Conjugate Vaccine 05/31/2016 TDAP Vaccine 12/10/2014 ZOSTER (ZOSTAVAX) VACCINE 04/25/2013 documented as of this encounter Social History Tobacco Use Types Packs/Day Years Used Date Never Smoker Smokeless Tobacco: Never Used Tobacco Cessation: Counseling Given: No Alcohol Use Drinks/Week oz/Week Comments No 0 Standard drinks or equivalent 0.0 Social Isolation Answer Date Recorded In a typical week, how many times do you More than three times a week 2017 talk on the phone with family, friends, or neighbors? How often do you get together with friends Three times a week 03/20/2018 or relatives? How often do you attend gnosticist or More than 4 times per year 03/20/2018 caodaism services? Do you belong to any clubs or Yes 03/20/2018 organizations such as gnosticist groups, unions, fraternal or athletic groups, or [...] Sign Reading Time Taken Comments Blood Pressure 130/78 05/30/2019 2:55 PM EST Pulse 75 05/30/2019 2:55 PM EST Temperature 37.2 05/30/2019 2:55 PM EST C (99 F) Respiratory Rate - - Oxygen Saturation 97% 05/30/2019 2:55 PM EST Inhaled Oxygen Concentration - - Weight 74.1 kg (163 lb 6.4 oz) 05/30/2019 2:55 PM EST Height 162.6 cm (5' 4") 05/30/2019 2:55 PM EST Body Mass Index 28.05 05/30/2019 2:55 PM EST documented in this encounter Patient Instructions Patient InstructionsLeslie Khalil MD - 05/30/2019 3:00 PM ESTDrugs to decrease the acid in your stomach and treat reflux Weakest drug for reflux: TuMS/ maalox/ mylanta/ amphogel etc. Middle strenght medications ( otc and by precsription) (H2 blockers) Tagamet/ pepcid/ axid / zantac (ranitidine) High strength medications (otc and by prescription) Prilosec OTC ( ompetrazole) /Protonix (pantaprazole ) /Prevacid // Aciphex/ Nexium carafate - Sticks to irritated places ( band aid ) Has follow up with visual supervisor and neurologist- documented in this encounter Progress Notes Leslie Khalil MD - 05/30/2019 3:00 PM EST TCM Statement. Review of the hospitalization: I am seeing for transition of care following hospitalization. The date of discharge was: 05/23/19 The discharge diagnosis was Chest pain - esoph spasm? Hypothyroid/ HTN / seizure disorder - . I reviewed the discharge summary, discharge instructions, and pertinent additional documentation obtained during hospitalization. I reconciled the medications. I also reviewed the Transition of Care documentation done by staff. The tests that were not available at the time of discharge were reviewed. Additional tests which are not yet available include: Coordination of care. (delete one and this phrase) - I am satisfied that appropriate referrals are in place to deal with the problems identified during hospitalization, and that the patient has adequate community resources and support in place. - Additional testing related to hospitilization was requested today: yes See orders. I confirmed the patient's understanding of the diagnosis and plan of care. Specific education that was provided today: Patient Instructions Drugs to decrease the acid in your stomach and treat reflux Weakest drug for reflux: TuMS/ maalox/ mylanta/ amphogel etc. Middle strenght medications ( otc and by precsription) (H2 blockers) Tagamet/ pepcid/ axid / zantac (ranitidine) High strength medications (otc and by prescription) Prilosec OTC ( ompetrazole) /Protonix (pantaprazole ) /Prevacid // Aciphex/ Nexium carafate - Sticks to irritated places ( band aid ) Has follow up with visual supervisor and neurologist- The current and discharge medications were reconciled by me, today The source document was hospital discharge summary NAME:Krupa Pendleton 1950: 1950 ENC Date: 05/30/2019 CC: Chief Complaint Patient presents with ? Transitional Care Management chest pain (allergic reaction to Zoloft) ? Hypothyroidism ? Hyperlipidemia Krupa Pendleton is a 69-y.o. female Presented urgently with episodic chest pain Relieved eventually with asa / nitro- EKG-marisel 54 without iscehmia / Ddimer 331/ negative troponin x 3 / negative CTA/ CXR done Patient admitted and observed - negative exercise stress test perfromed Patient also had negative nuclear medicine stress test In 2018 Has seen MIKI Espinoza Upper GI planned - Has burning symptoms of the chest in the am - 2. Patient also recently follow up with her neruologist in [place] - she had been having symptoms that were thought possibly consistent with A TIA but now thought to be seizire do and started on keppra with good results- She was started last month on zoloft and had tremor which resolved off zoloft - 3. infidelity Has counseling For this - Current Outpatient Medications Medication Sig ? [...] 07/22/2018 ? TIA (transient ischemic attack) 07/19/2018 [place]- 07/17/18- Ultrasound shows 78% block ? Bilateral [...] disease 03/08/2011 Vaginal discharge - following with cooker helper ? S/P ADRIANO (total abdominal hysterectomy) 11/10/2010 [...] 07/10 Cath ~ 2000- [place]- Told normal Family History Problem Relation [...] drinks ? Drug use: No OBJECTIVE: BP 130/78 | Pulse 75 | Temp 99 F (37.2 C) | Ht 5' 4" (1.626 m) | Wt 163 lb 6.4 oz (74.1 kg) | SpO2 97% | BMI 28.05 kg/m . A/P ICD-9-CM ICD-10-CM 1. Atypical chest pain Follow up with cardiology 786.59 R07.89 2. Essential hypertension Good control, continue present treatment 401.9 I10 3. Thyroid disorder Follow TSH ok in hospital 246.9 E07.9 4. Elevated blood sugar Follow 790.29 R73.9 5. Tremor - Resolved off zoloft - 781.0 R25.1 Patient Instructions Drugs to decrease the acid in your stomach and treat reflux Weakest drug for reflux: TuMS/ maalox/ mylanta/ amphogel etc. Middle strenght medications ( otc and by precsription) (H2 blockers) Tagamet/ pepcid/ axid / zantac (ranitidine) High strength medications (otc and by prescription) Prilosec OTC ( ompetrazole) /Protonix (pantaprazole ) /Prevacid // Aciphex/ Nexium carafate - Sticks to irritated places ( band aid ) Has follow up with visual supervisor and neurologist- AUTHOR: Leslie Khalil MD 15:50 05/30/2019 documented in this encounter Plan of Treatment Date Type Specialty Care Team Description 06/04/2019 GI Procedure Gastroenterology Juana Robert MD [address] [place] [address] 06/12/2019 Office Visit Gastroenterology Yvonne Juárez, TEXTILE MACHINE MECHANIC [address] [place] [address] [phone] 06/13/2019 Office Visit Internal Medicine Leslie Khalil MD [address] [place] [address] [phone] 06/25/2019 Office Visit Cardiology Jordan Poole MD [facility] [place] [address] [phone] Health Maintenance Due Date Last Done Comments [...] Type Problems Progress Blood Pressure Blood Pressure 130/78 No Padmaja, < 150/90 (05/30/2019 CARMELA Valenzuela 2:55 PM EST) Note: This is an individualized [...] Weight loss vs. 18 mo Lifestyle 35.6 (05/30/2019 2:55 PM No Bianca Giang FNP max (lbs) [...] filedocumented in this encounter Visit Diagnoses Diagnosis Atypical chest pain Other chest pain Essential hypertension Unspecified essential hypertension Thyroid disorder Unspecified disorder of thyroid Elevated blood sugar Other abnormal glucose Tremor Abnormal involuntary movements documented in this encounter Insurance Payer Benefit Plan / Subscriber ID Effective Dates Phone Address Type Group [employer] MEDIC[employer] EXCELLUS [id number] 2017-Present Social IQ (Social Influence Quotient)[employer] ADVANTAGE MEDICARE BLUE PPO ([phone]) documented as of this encounter
--- OUTSIDE RECORDS SUMMARY | 2019-06-23 19:36 | XMS REPORT | Continuity of Care Document ---
:1950 External Reference #:[id number] Author Name MIKI Avilez (transmitted by agent of provider Kylah Martínez) Address [address] [place] [address] Care Team Providers Name Role Phone Leslie Kahlil MD - Internal Medicine Care Team Information Correctional Officer Captain [phone] Problems Active Problems Provider Date Peripheral tear of medial meniscus, current Dylon Nunes M.D. Onset: 2016 injury, left knee, subsequent encounter Other tear of lateral meniscus, current Dylon Nunes M.D. Onset: 09/18/2016 injury, left knee, subsequent encounter Chest pain Owen Dukes N.PFani Onset: 10/18/2017 Palpitations Owen Dukes NRowdy Onset: 10/18/2017 Essential hypertension Silvia Nicholas NP [...] Injection Technetium TC 99M Jamison Lainez M.D., [facility], 06/11/2012 Tetrofosmin, Per Unit Dose FSCAI Up To 40 Millicuries Injection Immunizations CPT Code Status Date Vaccine Reaction Lot # [id number] Given 02/01/2018 Influenza Virus Vaccine, no immediate [...] Available Procedures Date Code Description Status 05/23/2019 77999 Treadmill Interp/Report Only Completed 05/23/2019 54144 Stress Test Supervsn W/Out I/R Completed Medical Devices Description No Information Available Encounters Type Date Location Provider Dx Diagnosis Office Visit 05/22/2019 [facility] Tyesha R07.9 Chest pain, 9:32a Assoc,MIKI Toney unspecified Hospitalists I10 Essential (primary) hypertension G40.909 Epilepsy, unsp, not intractable, without status epilepticus E03.9 Hypothyroidism, unspecified Assessments Date Code Description Provider 05/22/2019 R07.9 Chest pain, unspecified MIKI Avilez [...]
--- NOTE | 2019-06-23 20:26 | UC ---
Skin Complaint HPI - HPI Summary HPI Summary: 69-year-old female presents with concerns for a possible tick bite to her left lower leg. States she spent the weekend at her catheter the [facility]. Flor noticed a dark spot to the inner aspect of her left lower leg that she is concerned may be a tick. Denies fever, chills, flulike illness, myalgias, joint pain or swelling. - History of Current Complaint Chief Complaint: UCRespiratory Time Seen by Provider: 06/23/19 19:30 Stated Complaint: TICK BITE Hx Obtained From: Patient Pain Intensity: 0 - Allergy/Home Medications Allergies/Adverse Reactions: Allergies Allergy/AdvReac Type Severity Reaction Status Date / Time metoprolol Allergy Muscle Ache Verified 06/23/19 19:34 nitrofurantoin Allergy Rash Verified 06/23/19 19:34 amoxicillin [From Augmentin] AdvReac GI Upset Verified 06/23/19 19:34 clavulanic acid AdvReac GI Upset Verified 06/23/19 19:34 [From Augmentin] Home Medications: Home Medications Levothyroxine TAB* [Synthroid 125 MCG TAB*] 125 mcg PO DAILY 03/23/14 [History Confirmed 06/23/19] Atorvastatin* [Lipitor 20 MG*] 40 mg PO DAILY 02/12/16 [History Confirmed ] amLODIPine TAB* [Norvasc 5 mg TAB*] 10 mg PO DAILY 02/12/16 [History Confirmed 06/23/19] Aspirin EC TAB* [Ecotrin EC Low Dose 81 MG*] 81 mg PO DAILY 10/18/17 [History Confirmed 06/23/19] Magnesium Chloride EC TAB* [Slow Mag EC TAB*] 128 mg PO DAILY 10/18/17 [History Confirmed 06/23/19] Cholecalciferol CAP/TAB(NF) [Vitamin D3 CAP/TAB (NF)] 5,000 unit PO DAILY [History Confirmed 06/23/19] Losartan Potassium 100 mg PO DAILY 03/11/19 [History Confirmed 06/23/19] Nadolol (NF) 20 mg PO DAILY 03/11/19 [History Confirmed 06/23/19] Topiramate TAB(*) [Topamax 25 MG tab] 50 mg PO BID 03/11/19 [History Confirmed 06/23/19] levETIRAcetam TAB* [Keppra TAB*] 500 mg PO BID 03/11/19 [History Confirmed 06/22] ALPRAZolam TAB* [Xanax TAB*] 0.5 mg PO TID PRN 06/23/19 [History Confirmed 06/22] Amoxicillin PO (*) [Amoxicillin 875 MG (*)] 875 mg PO BID 06/23/19 [History Confirmed 06/23/19] Bisacodyl 10 mg SUPP [Dulcolax Supp*] 10 mg MI DAILY PRN 06/23/19 [History Confirmed 06/23/19] Codeine Phosphate/Guaifenesin [Guaifenesin-Codeine Syrup] 5 ml PO Q6HR PRN 06/22 [History Confirmed 06/23/19] Fluticasone NASAL SPRAY 50MCG* [Flonase NASAL SPRAY 50MCG*] 2 spray BOTH NARES DAILY 06/23/19 [History Confirmed 06/23/19] Meclizine TAB* [Antivert 12.5 TAB*] 12.5 mg PO TID PRN 06/23/19 [History Confirmed 06/23/19] Oxybutynin XL TAB* [Ditropan XL TAB*] 5 mg PO ONCE 06/23/19 [History Confirmed 06/23/19] PMH/Surg Hx/FS Hx/Imm Hx Endocrine History: Thyroid Disease, Dyslipidemia Cardiovascular History: Hypertension GI/ History: Other - OAB Neurological History: Seizures Psychological History: Anxiety - Surgical History Surgical History: Yes Surgery Procedure, Year, and Place: cholecystectomy;, 1973. hysterectomy;1977. sinus surgery X2;. fx thumb;40 yrs ago. thyroidectomy, 2009 - Family History Known Family History: Positive: Cardiac Disease - all family members before 50 - Social History Occupation: Retired Lives: With Family Alcohol Use: None Alcohol Amount: 1 per week Substance Use Type: None Smoking Status (MU): Never Smoked Tobacco Review of Systems All Other Systems Reviewed And Are Negative: Yes Constitutional: Negative: Fever, Chills Skin: Positive: Other - See HPI Respiratory: Positive: Negative Cardiovascular: Positive: Negative Gastrointestinal: Positive: Negative Genitourinary: Positive: Negative Musculoskeletal: Positive: Negative Neurological/Mental Status: Positive: Negative Is Patient Immunocompromised?: No Physical Exam - Summary Physical Exam Summary: GENERAL APPEARANCE: Alert and cooperative older adult female who appears to be in no acute distress. CARDIAC: Normal S1 and S2. No S3, S4 or murmurs. Rhythm is regular. There is no peripheral edema, cyanosis or pallor. Extremities are warm and well perfused. Capillary refill is less than 2 seconds. Peripheral pulses intact. LUNGS: Clear to auscultation without rales, rhonchi, wheezing or diminished breath sounds. ABDOMEN: Positive bowel sounds. Soft, nondistended, nontender. No guarding or rebound. No masses or hepatosplenomegally. MUSKULOSKELETAL: ROM intact to all extremities. No joint erythema or tenderness. Normal muscular development. Normal gait. SKIN: Skin normal color, texture and turgor. Small <0.3 cm, flat, melanotic lesion to the mid, inner, left lower leg. Triage Information Reviewed: Yes Vital Signs Reviewed: Yes Course/Dx - Course Course Of Treatment: 69-year-old female presents with concerns for a possible tick bite to her left lower leg. States she spent the weekend at her catheter the [facility]. Tonight noticed a dark spot to the inner aspect of her left lower leg that she is concerned may be a tick. Denies fever, chills, flulike illness, myalgias, joint pain or swelling. Afebrile. Vital signs stable. Patient had a small < 0.3 cm, flat, melanotic lesion to the mid, inner, left lower leg consistent with a freckle. Discussed findings with the patient and stated that although I do not see any evidence of a tick bite at this time she should continue to monitor for signs and symptoms of Lyme disease over the next 3-4 weeks. She is to follow-up with her primary care provider as needed. Anticipatory guidance and warning symptoms were reviewed with the patient. Verbalizes understanding and agrees to plan of care. - Differential Diagnoses - Skin Complaint Differential Diagnoses: Local Allergic Reaction, Tick Born Illness - Diagnoses Provider Diagnosis: Melanotic freckle Discharge ED - Sign-Out/Discharge Documenting (check all that apply): Patient Departure All imaging exams completed and their final reports reviewed: No Studies - Discharge Plan Condition: Stable Disposition: HOME Patient Education Materials: Tick Bite (ED) Referrals: Leslie Khalil MD [Primary Care Provider] - If Needed Additional Instructions: The lesion on your leg is a freckle. I do not see any evidence of a tick bite at this time. Ticks transmit infection only after they have attached and then taken a blood meal from their new host. A tick that has not attached cannot not pass any infection. Since the deer tick that transmits Lyme disease typically feeds for more than 36 hours before transmitting the organisim that causes Lyme disease, the risk of acquiring Lyme disease from an tick bite is extremely small, even in an area where the disease is common. There is no benefit of blood testing for Lyme disease at the time of the tick bite because even people who become infected will not have a positive blood test until approximately two to six weeks after the tick bite. To try to avoid getting bitten by a tick, you can: * Wear shoes, long-sleeved shirts, and long pants when you go outside. Keep ticks away from your skin by tucking your pants into your socks. * Wear light colors so you can spot any ticks that get on your clothes. * Wear bug spray or cream that contains DEET. (Do not use DEET on babies younger than 2 months.) On your clothes and gear, you can use bug repellents that have a chemical called "permethrin." * Shower within 2 hours of being outdoors if you think you have been in an area where there are ticks. * Put dry clothes briefly (for about 4 minutes) in a dryer after being outdoors. * Check your clothes and body for ticks after being outdoors. Be sure to check your scalp, waist, armpits, groin, and backs of your knees. Check your children , too. After a tick bite, you will need to monitor for signs of Lyme disease over the nexter several weeks even if you have been given antibiotics to prevent the infection. Seek immediate medical attention if you develop a bullseye rash, fever, flu-like symptoms including headache, stiff neck, fatigue, muscle aches, joint pain or swelling. - Billing Disposition and Condition Condition: STABLE Disposition: Home
[2019-06-23 20:40] VITALS: BP 128/73
== END 2019-06-23 20:40 | disposition home or self-care (01) ==
LOC: UCEAST 18:36
DX: D03.8 Melanoma in situ of other sites (principal); E89.0 Postprocedural hypothyroidism; E78.5 Hyperlipidemia, unspecified; I10 Essential (primary) hypertension; R56.9 Unspecified convulsions; F41.9 Anxiety disorder, unspecified; Z79.890 Hormone replacement therapy; Z79.899 Other long term (current) drug therapy; Z88.1 Allergy status to other antibiotic agents; Z88.8 Allergy status to other drugs, medicaments and biological substances
CPT/HCPCS: 99211; G0463